=== PATIENT | female | born 1940 | race Hispanic/Latino ===

== ENCOUNTER 2018-01-26 16:15 | Inpatient (IN) | payer MEDICARE ==
[2018-01-26] MEDS ORDERED: Fentanyl 100 MCG/2 ML VIAL ONE (18:01)
[2018-01-26] MEDS ORDERED: Cyclobenzaprine 10 MG TAB PO PRN (19:08)
[2018-01-26] MEDS ORDERED: Dextrose 5% in Water 1,000 ML IV PRN (19:08)
[2018-01-26] MEDS ORDERED: Guaifenesin DM 100-10/5 ML UDCUP PO PRN (19:08)
[2018-01-26] MEDS ORDERED: Dextrose 50% Abboject 50 ML SYRINGE SLOW IVP PRN (19:08)
[2018-01-26] MEDS ORDERED: HumaLOG 300 UNITS/3 ML VIAL SC PRN ×2 (19:08)
[2018-01-26] MEDS ORDERED: Ondansetron HCl/PF 4 MG/2 ML Vial IVP PRN (19:08)
[2018-01-26] MEDS ORDERED: cefTRIAXone\\ROCEPHIN 1 GM in Sodium Chloride 0.9% 100 ML IVPB SCH (19:15)
[2018-01-26] MEDS ORDERED: VANCOMYCIN IVPB PRN (19:46)
[2018-01-26 20:54] VITALS: BMI 27.9
--- NOTE | 2018-01-26 20:56 | HP ---
REASON FOR ADMISSION: Acute kidney injury, history of fall with worsening of lumbar disk disease, possible diskitis, moderate dehydration, metabolic acidosis due to acute kidney injury. HISTORY OF PRESENT ILLNESS: The patient gives history of trying to open the door for her son around 12:00 p.m. She was initially in the restroom and tried to get up and walk quick towards the front door and the patient apparently fell soon after opening the door for her son. Her son tried to catch her, but she had already gone onto the floor, hitting her back. The son tried to make the fall as safe as he could. She has history of lumbar disk disease from last 22 years or so. In fact, this was getting worse and had gone to see Dr. Solis yesterday. She was placed on prednisone tapering dose starting at 40 mg oral course of 9 days which the patient took so far two tablets. No obvious fever, but has felt warm at home from last 2-3 days. No complaints of chest pain or palpitation. The patient says she does not have any diarrhea. She is not sure if she was hydrating herself well. She has no known history of kidney disease as far she knows. The patient states that she has been postponing her spine surgery from last 20 years or so. She wanted to get it done only if she gets to a point where she cannot move her limbs. PAST MEDICAL/SURGICAL HISTORY: Hypertension, diabetes mellitus type 2, C- section x1. No other surgeries. CURRENT MEDICATIONS: Prednisone taper started from yesterday evening for severe back pain. Metformin extended release 500 mg p.o. daily, cyclobenzaprine 10 mg p.o. 3 times daily p.r.n., hydrochlorothiazide 25 mg daily , lisinopril 10 mg daily, Ultram 50 mg q.6 hours p.r.n. ALLERGIES: PENICILLIN. PERSONAL HISTORY: She does not abuse alcohol or drugs. Quit smoking 20 years ago, prior to which has smoked half pack a day for nearly 20 years. She normally walks one mile a day which she has been doing so until the last weekend when her back pain started to bother her. She lives by herself. Does not use any assistive devices. FAMILY HISTORY: Both parents at the age of 78 years, both have had history of [place] and diabetes. REVIEW OF SYSTEMS: The following complete review of systems was negative, unless otherwise mentioned in the HPI or below: Constitutional: Weight loss or gain, ability to conduct usual activities. Skin: Rash, itching. Eyes: Double vision, pain. ENT/Mouth: Nose bleeding, neck stiffness, pain, tenderness. Cardiovascular: Palpitations, dyspnea on exertion, orthopnea. Respiratory: Shortness of breath, wheezing, cough, hemoptysis, fever or night sweats. Gastrointestinal: Poor appetite, abdominal pain, heartburn, nausea, vomiting, constipation, or diarrhea. Genitourinary: Urgency, frequency, dysuria, nocturia. Musculoskeletal: Pain, swelling. Neurologic/Psychiatric: Anxiety, depression. Allergy/Immunologic: Skin rash, bleeding tendency. CODE STATUS: FULL. Power of senior trial attorney is her son, Mr. Cardenas. PHYSICAL EXAMINATION: GENERAL: The patient is a 78-year-old female who is currently in mild to moderate pain from lower back area. VITAL SIGNS: Blood pressure 100/80, pulse 90 per minute, respiratory rate 20 per minute, temperature 98.8 degrees Fahrenheit, saturating 96% on room air. NECK: Supple, no elevated JVD. HEENT: Eyes, extraocular muscles intact. Pupils reacting to light. Oral cavity, mucous membranes are moist. No exudates or congestion. CARDIOVASCULAR: S1, S2 heard. Regular rhythm. RESPIRATORY: Air entry 2+ bilateral. No rales or rhonchi. ABDOMEN: Soft, bowel sounds heard. No tenderness, rigidity or guarding. EXTREMITIES: Mild peripheral edema, no calf tenderness. VASCULAR: Peripheral pulses 1+ bilateral, no ischemic ulcerations or gangrene. CENTRAL NERVOUS SYSTEM: No gross focal deficits seen. Patient has severe pain in the median and paraspinal area. No obvious or localized spot tenderness noted in the lower back. PSYCHIATRIC: The patient's mood is euthymic. No hallucinations or delusions. LABORATORY AND X-RAY FINDINGS: CT brain noncontrast done showed no acute intracranial abnormalities. There is moderate chronic small vessel ischemic changes seen, no acute cortical infarct or hemorrhage were seen. Mild cerebral volume loss was seen. Chest x-ray done shows no acute intrathoracic disease. EKG done shows sinus tachycardia at 103 beats per minute. There is Q-wave seen in V1 and V2. Corrected QT is 474. Sodium 140. Serum bicarbonate 19, BUN 61, creatinine 2.59. Serum glucose 194, albumin is 3.7, troponin I is less than 0.01, CK-MB 2.6. White count of 14, H&H 10 and 35, platelet count 331, MCV is 75 with 85% neutrophils, sed rate is 66. CLINICAL IMPRESSION AND PLAN: The patient will be admitted to medical floor for acute kidney injury, metabolic acidosis, worsening of her lumbar disk disease with a fall this afternoon. Also, patient has a white count of 14 and it is unclear if this is due to steroids, although she just took 1 pill. [place]ano cultures will be obtained and the patient will be placed on vancomycin and ceftriaxone based on renal dosing. MRI without contrast of the thoracic and lumbar spine will be obtained in the morning and to rule out diskitis/ osteomyelitis. We will also obtain consultation with Dr. Fuentes for Nephrology and Dr. Fields who is production machine tender for Neurosurgery. PT, OT evaluations will be requested. If patient cannot mobilize then she will be a candidate for inpatient rehab based on MRI findings. We will hold her hydrochlorothiazide, metformin, and lisinopril for now in view of acute kidney injury and place her on Norvasc, Lopressor for now. She will be on morphine, Ultram and Flexeril p.r.n. for pain. We will continue to closely monitor her for any hemodynamic compromise. I have given complete updates to both her son and niece at bedside here. MARY
[2018-01-26] MEDS ORDERED: cefTRIAXone\\ROCEPHIN 1 GM, Syringe 0.4 ML in Sterile Water 9.6 ML SLOW IVP SCH (21:00)
[2018-01-26] MEDS: Sodium Chloride 0.9% 1,000 ML IV SCH (21:18)
[2018-01-26] MEDS ORDERED: Vancomycin HCl 1.75 GM in Sodium Chloride 0.9% 500 ML IVPB SCH (22:00)
[2018-01-26] MEDS: Docusate 100 MG CAP PO SCH (22:26)
[2018-01-26] MEDS: Metoprolol Tartrate 25 MG TAB PO SCH (22:27)
[2018-01-26] MEDS: Famotidine 20 MG TAB PO SCH (22:28)
[2018-01-26] MEDS: traMADol HCl 50 MG TAB PO PRN (22:31)
[2018-01-27 04:24] LABS: #Basophils 0.1 thou/uL (0.0-0.2); #Eosinphils 0.2 thou/uL (0.0-0.7); #Lymphocytes 2.1 thou/uL (1.20-3.40); #Monocytes 0.9 thou/uL (0.11-0.59); #Neutrophils 6.9 thou/uL (1.40-6.50); %Basophils 0.5 % (0.0-1.0); %Lymphocytes 20.8 % (21.0-51.0); %Neutrophils 67.8 % (42.0-75.0); Hemoglobin 9.3 g/dL (12.0-16.0); Mean Corpuscular HGB CONC 32.3 g/dL (32.0-36.0); Mean Corpuscular Hemoglobin 24.5 pg (27.0-31.0); Mean Corpuscular Volume 75.8 fl (81.0-99.0); Mean Platelet Volume 8.3 fL (7.4-10.4); Platelet Count 257 thou/uL (130-400); RBC Distribution Width 16.3 % (11.5-14.5); Red Blood Cell (RBC) Count 3.79 mill/uL (4.20-5.40); White Blood Cell (WBC) Count 10.1 thou/uL (4.8-10.8)
[2018-01-27 04:35] LABS: Albumin 3.2 g/dL (3.4-4.8); Anion Gap 12 mmol/L (10-20); BUN (Urea Nitrogen) 51 mg/dL (9.8-20.1); BUN/Creatinine Ratio 26.98; Calc. Creatinine Clearance 30 mL/min (70-130); Calcium 8.2 mg/dL (7.8-10.44); Carbon Dioxide 19 mmol/L (23-31); Chloride 111 mmol/L (98-107); Estimated GFR-MDRD 26; Glucose 116 mg/dL (83-110); Phosphorus 4.5 mg/dL (2.3-4.7); Potassium 3.7 mmol/L (3.5-5.1); Sodium 138 mmol/L (136-145)
[2018-01-27] MEDS: traMADol HCl 50 MG TAB PO PRN ×2 (06:20→15:33)
[2018-01-27] MEDS: Sodium Chloride 0.9% 1,000 ML IV SCH ×2 (06:22→13:28)
[2018-01-27] MEDS ORDERED: Prevnar 13-Val Conj/PF 0.5 ML SYRINGE IM ONE (09:00)
[2018-01-27] MEDS: Docusate 100 MG CAP PO SCH ×2 (09:20→20:18)
[2018-01-27] MEDS: Metoprolol Tartrate 25 MG TAB PO SCH ×2 (09:21→20:18)
[2018-01-27] MEDS: Enoxaparin Sodium 30 MG/0.3 ML SYRINGE SC SCH (09:29)
[2018-01-27] MEDS: Amlodipine 5 MG TAB PO SCH (09:30)
--- NOTE | 2018-01-27 17:37 | MRI ---
THORACIC SPINE MRI WITHOUT CONTRAST: 01/27/18 HISTORY: Severe pain. Evaluate for discitis. COMPARISON: None. TECHNIQUE: Thoracic spine MRI is performed without intravenous gadolinium administration. Multisequential, multi planar imaging is performed. FINDINGS: Overall there is appropriate T1 marrow signal intensity of the thoracic vertebrae. There is mild to m oderate loss of vertebral body height at T9 without significant STIR hyperintensity. Remote compressi on fracture is favored. End plate change at the superior aspect of T7 due to Schmorl's node is favore d. There is no abnormal edema in the disc spaces throughout the thoracic spine. Visualized mediastinum, lung parenchyma and solid organs are unremarkable. Evaluation of the thoracic spine is limited on the axial images due to motion degradation. The thoracic cord has an overall nor mal size and signal intensity. No cord expansion. No cord malacia. Conus medullaris appears to termin ate at the L1 level. With regard to the inferior end plate of L1, there appears to be edematous guerrier e. Possibility of a compression fracture is raised. Evaluation is limited and reference should be mad e to the separate lumbar spine MRI for repeat for further detail. At the T9-T10 level, there is generalized disc bulge with possible osteophyte components. Based on th e axial images, there is likely at least mild central canal stenosis. There is mild deformity of the cord without obvious hyperintensity of the cord. Evaluation is limited on the axial images due to mot ion. Throughout the thoracic spine, no obvious high grade foraminal stenosis. IMPRESSION: 1. Remote changes involving the thoracic spine. No MR evidence of thoracic spine discitis/osteom yelitis. Evaluation is limited by lack of gadolinium administration. 2. Irregularity involving the inferior end plate of L1, incompletely evaluated. Refer to separat e lumbar spine MRI for further detail. 3. Degenerative change at T9-T10. POS: OFF
--- NOTE | 2018-01-27 17:41 | PDOC.PN ---
- Subjective Encounter Start Date: 01/27/18 Encounter Start Time: 17:39 Ms. Mcguire was seen today in follow-up of severe low back pain. She says the pain has flared up after she had the MRI performed. - Objective Resuscitation Status: Resuscitation Status FULL:Full Resuscitation MAR Reviewed: Yes Vital Signs & Weight: Vital Signs (12 hours) Temp Pulse Resp BP Pulse Ox 01/27/18 09:30 66 135/66 01/27/18 08:00 97.9 F 66 16 95 Weight Admit Weight 162 lb 12.8 oz Weight 162 lb 12.8 oz Result Diagrams: 01/27/18 04:04 01/27/18 04:04 Additional Labs: Accuchecks 01/27/18 01/27/18 01/27/18 16:31 11:30 05:11 POC Glucose 98 105 114 H 01/27/18 00:14 POC Glucose 116 H Phys Exam - Physical Examination HEENT: PERRLA Respiratory: no wheezing, no rales, no rhonchi, clear to auscultation bilateral Cardiovascular: RRR, no significant murmur Gastrointestinal: soft, non-tender, positive bowel sounds Musculoskeletal: no edema Dx/Plan (1) Fracture of L1 vertebra Code(s): S32.019A - UNSP FRACTURE OF FIRST LUMBAR VERTEBRA, INIT FOR CLOS FX Status: Acute (2) Diabetes mellitus type 2 in nonobese Code(s): E11.9 - TYPE 2 DIABETES MELLITUS WITHOUT COMPLICATIONS Status: Acute (3) Hypertension Code(s): I10 - ESSENTIAL (PRIMARY) HYPERTENSION Status: Acute (4) Microcytic anemia Code(s): D50.9 - IRON DEFICIENCY ANEMIA, UNSPECIFIED Status: Acute (5) Acute renal failure Status: Acute - Plan * Severe back pain- Preliminary MRI report is significant for L1 fracture , and DJD- will add Calcitonin, and awaait recommendations from Neurosurgery * HTN- blood pressure is controlled * Acute renal failure- improved * DM- blood glucose is stable * There was no mention of disciitis or epidural abscess on the MRI report which has not been transcribed yet- will continue IV antibiotics, until the report is final. * Anemia- microcytic-terry check iron studies, and Nephrology has ordered studies for para- proteins * Acute renal failure- improved
--- NOTE | 2018-01-27 17:43 | MRI ---
LUMBAR SPINE MRI WITHOUT IV CONTRAST: 01/27/18 HISTORY: 78-year-old female with history of fall and pain. Concern for discitis. Multiplanar and multisequence MRI examination of the lumbar spine is performed. At L1-L2, there is so me compression of the inferior end plate of L1 with some minimal abnormal marrow edema, evidence for acute subcortical fracture. The conus medullaris region is unremarkable terminating at L1-L2. Very small T2 hyperdense focus in t he left kidney too small to characterize was statistically a small cyst. No evidence for canal or for aminal stenosis. No evidence of retropulsion. L2-L3: The disc demonstrates some mild disc bulging with ligament and facet hypertrophic changes some what more focally prominent in the left paracentral aspect with very mild thinning of the lateral rec ess and mild foraminal stenosis. At L3-4, there is again noted to be mild bilateral lateral recess stenosis and some mild bilateral fo raminal stenosis. Evidence of multiple annular fissures. At L4-5, there is more severe disc bulging and ligament and facet hypertrophic changes with moderate central canal and lateral recess stenosis and moderate bilateral foraminal stenosis as well as some m ultiple annular fissures. At L5-S1, generalized disc bulging with some annular fissures with mild bilateral foraminal stenosis. IMPRESSION: Subcortical compression fracture of the inferior end plate region of L1 centrally with some adjacent marrow edema without evidence of retropulsion or canal stenosis. Variable severity multilevel mostly mild to moderate central canal, lateral recess, and foraminal stenosis with multilevel annular fissur es of the remainder of the lumbar spine. POS: EBONIE
[2018-01-27] MEDS: Famotidine 20 MG TAB PO SCH (20:18)
[2018-01-27] MEDS: Calcitonin,Salmon,Synthetic 200 Units 3.7 ML PUMP L NARE SCH (20:19)
[2018-01-27] MEDS: Morphine 4 MG/ML VIAL SLOW IVP PRN (20:21)
[2018-01-27] MEDS ORDERED: cefTRIAXone\\ROCEPHIN 1 GM, Syringe 0.4 ML in Sterile Water 9.6 ML SLOW IVP SCH (21:00)
[2018-01-27 22:53] LABS: Creatinine, Urine 44.39 mg/dL (47-110)
--- NOTE | 2018-01-27 23:15 | CON ---
DATE OF CONSULTATION: 01/27/2018 NEPHROLOGY CONSULT CONSULTING PHYSICIAN: Dr. Jonathan Kothari. REASON FOR CONSULTATION: Acute kidney injury. REASON FOR ADMISSION: Dehydration. HISTORY OF PRESENT ILLNESS: This is a 78-year-old female who was brought to the hospital for not fee ling well and difficulty walking and history of fall. Patient was found to have acute kidney injury with elevated creatinine of 2.5 from her baseline of 1.5. Nephrology is consulted. Patient was star aura on IV hydration this morning, it was better. No fever or chills. PAST MEDICAL HISTORY: Positive for hypertension, type 2 diabetes. PAST SURGICAL HISTORY: . HOME MEDICATIONS: Metformin, cyclobenzaprine, hydrochlorothiazide, lisinopril. ALLERGIES: PENICILLIN. SOCIAL HISTORY: No smoking, alcohol, or illicit drug abuse. FAMILY HISTORY: No history of kidney disease. REVIEW OF SYSTEMS: The following complete review of systems was negative, unless otherwise mentioned in the HPI or below: Constitutional: Weight loss or gain, ability to conduct usual activities. Sk in: Rash, itching. Eyes: Double vision, pain. ENT/Mouth: Nose bleeding, neck stiffness, pain, te nderness. Cardiovascular: Palpitations, dyspnea on exertion, orthopnea. Respiratory: Shortness of breath, wheezing, cough, hemoptysis, fever, or night sweats. Gastrointestinal: Poor appetite, abdo kathie pain, heartburn, nausea, vomiting, constipation, or diarrhea. Genitourinary: Urgency, frequen cy, dysuria, nocturia. Musculoskeletal: Pain, swelling. Neurologic/Psychiatric: Anxiety, depressi on. Allergy/Immunologic: Skin rash, bleeding tendency. PHYSICAL EXAMINATION: GENERAL: This is an obese female in no apparent distress. VITAL SIGNS: Temperature 98.0, pulse 63, respiratory rate 18, blood pressure 119/72. HEENT: Atraumatic, normocephalic. Oral mucosa is moist. NECK: Supple. HEART: S1, S2 heard. Rate and rhythm regular. RESPIRATORY: Clear. ABDOMEN: Soft. MUSCULOSKELETAL: No tenderness. No edema. DERMATOLOGIC: No skin rash. NEUROLOGIC: Alert, awake. PSYCH: Normal mood and affect. LABORATORY DATA: : Hemoglobin is 9.3. Potassium is 3.7, BUN is 51, creatinine is 1.8. ASSESSMENT AND PLAN: 1. Acute kidney injury. Creatinine is better from 1.8 from 2.5 on hydration. Continue hydration fo r 1 more day. Avoid nephrotoxins, renally dose all the medicines. 2. Anemia, rule out any bleed. 3. Hypertension, stable. 4. Acidosis, mild. 5. Hypoalbuminemia. We will check urine studies. Plan is to continue IV fluids and check chronic kidney disease labs.
--- NOTE | 2018-01-27 23:32 | CON ---
DATE OF CONSULTATION: 01/27/2018 Arcadio Moore PA-C dictating for Duc Reed MD This is a 30-minute initial patient evaluation, of which greater than 50% of the exam was spent couns eling and coordinating patient's care. Remainder of the exam was spent in review of patient's medica l records and appropriate imaging studies. CHIEF COMPLAINT: Increased low back pain, midline low back pain, status post fall. HISTORY OF PRESENT ILLNESS: Ms. Mcguire is a pleasant 78-year-old female, who presented to [facility] Emergency Room for complaints of a fall. Apparently, the patient was trying to open her front door for her son and became unsteady on her feet and fell backward. She states since that time she has h ad severe midline low back pain. She does have a history of intermittent low back pain since 1996, b ut states she has not really had a flareup since her fall on . The patient denies any radicu lar symptoms including no hip pain, buttock pain, or leg pain. She has no numbness or tingling in legs. She again does not typically fall, but has been unsteady on her feet over the past few days and has required the use of a cane for gait stability. She is not on any blood thinners and does not use tobacco. She has never had surgery on the lumbar spine. She also has not had physical therapy or epidural steroid injections. IMAGING: The patient's lumbar spine including review of her most recent MRI shows some [id number] evere stenosis of the L4-5 level. PHYSICAL EXAMINATION: The patient is awake, alert, and appropriate. She has full strength in the bi lateral upper and bilateral lower extremities with intact sensation to light touch throughout. She h as no worrisome myelopathic features on exam including negative Lovett's bilaterally and no increase d tone. She has no worrisome tenderness to palpation along the midline of the cervical spine, thorac ic, or lumbar spines or in the bilateral paraspinal musculature of the spine. GCS currently is 15. IMPRESSION: 1. Acute on chronic low back pain. 2. Lumbar spinal stenosis, L4-5. PLAN: I discussed the patient's case and imaging with Dr. Reed. At this time, the patient does no t require any type of neurosurgical intervention. We will maximize her conservative management inclu ding pain medications, epidural steroid injections, and perhaps injections, although given the fact t hat the patient does not have any radicular complaints, she may benefit more from, I suspect, injecti ons for pain management. Again, we will hold on any type of neurosurgical intervention. The patient 's family was updated with this information as well and they are certainly pleased that she can avoid surgery. Please call with any questions or changes in patient's neurologic status. Otherwise, we w ill continue to monitor the patient.
[2018-01-28] MEDS: Sodium Chloride 0.9% 1,000 ML IV SCH ×2 (01:43→16:47)
[2018-01-28 05:46] LABS: #Basophils 0.1 thou/uL (0.0-0.2); #Eosinphils 0.3 thou/uL (0.0-0.7); #Lymphocytes 1.7 thou/uL (1.20-3.40); #Monocytes 0.8 thou/uL (0.11-0.59); %Basophils 0.6 % (0.0-1.0); %Eosinophils 3.4 % (0.0-10.0); %Lymphocytes 19.6 % (21.0-51.0); %Monocytes 8.6 % (0.0-10.0); %Neutrophils 67.8 % (42.0-75.0); Hemoglobin 9.3 g/dL (12.0-16.0); Mean Corpuscular HGB CONC 31.2 g/dL (32.0-36.0); Mean Corpuscular Hemoglobin 23.8 pg (27.0-31.0); Mean Corpuscular Volume 76.3 fl (81.0-99.0); Mean Platelet Volume 9.8 fL (7.4-10.4); Platelet Count 236 thou/uL (130-400); RBC Distribution Width 16.3 % (11.5-14.5); Red Blood Cell (RBC) Count 3.92 mill/uL (4.20-5.40); White Blood Cell (WBC) Count 8.9 thou/uL (4.8-10.8)
[2018-01-28 05:59] LABS: Anion Gap 8 mmol/L (10-20); BUN (Urea Nitrogen) 40 mg/dL (9.8-20.1); Calc. Creatinine Clearance 37 mL/min (70-130); Calcium 8.6 mg/dL (7.8-10.44); Carbon Dioxide 20 mmol/L (23-31); Chloride 112 mmol/L (98-107); Estimated GFR-MDRD 34; Glucose 100 mg/dL (83-110); Iron 42 ug/dL (50-170); Iron Binding Capacity, Total 219 mcg/dL (265-497); Potassium 4.4 mmol/L (3.5-5.1); Sodium 136 mmol/L (136-145)
[2018-01-28 06:19] LABS: Ferritin 76.59 ng/mL (10-291); Vitamin D, 25 Hydroxy 7.1 ng/ml (> 30.0)
[2018-01-28] MEDS: Metoprolol Tartrate 25 MG TAB PO SCH ×2 (08:12→19:47)
[2018-01-28] MEDS: Docusate 100 MG CAP PO SCH ×2 (08:12→19:47)
[2018-01-28] MEDS: Enoxaparin Sodium 30 MG/0.3 ML SYRINGE SC SCH (08:14)
[2018-01-28] MEDS: Amlodipine 5 MG TAB PO SCH (08:16)
--- NOTE | 2018-01-28 13:11 | PRG ---
DATE OF SERVICE: 01/28/2018 This is a 30 minute initial hospital visit note in which 30 minutes were spent in review of the imagi ng, record, evaluation, examination of patient, and formulation of a plan. Greater than 50% of the t sapphire was spent in counseling. CHIEF COMPLAINT: Low back pain with likely new L1 fracture found on MRI with lumbar stenosis. HISTORY OF PRESENT ILLNESS: Ms. Mcguire is a very pleasant 78-year-old woman. She fell backwards an d was caught by her son. She had a low back pain. She has not had leg pain. MRI demonstrates some wedging at the L1 segment consistent with an anterior middle column fracture. She has some lumbar st enosis at L4-L5, but denies leg pain. PHYSICAL EXAMINATION: On our team's exam, she is neurologically intact. IMPRESSION AND PLAN: We will arrange for a TLSO clamshell brace from [facility]. This should be worn when she is out of bed with the likely duration 6-12 weeks. I will arrange follow up in my clinic in 2 weeks with upright AP and lateral lumbar spine x-rays. DIAGNOSES: 1. L1 fracture. 2. Lumbar stenosis.
[2018-01-28] MEDS: Morphine 4 MG/ML VIAL SLOW IVP PRN ×2 (14:32→19:47)
--- NOTE | 2018-01-28 17:50 | PDOC.PN ---
- Subjective Encounter Start Date: 01/28/18 Encounter Start Time: 17:48 Ms. Mcguire is feeling better. She still has some pain, but it is controlled with medication. - Objective Resuscitation Status: Resuscitation Status FULL:Full Resuscitation MAR Reviewed: Yes Vital Signs & Weight: Vital Signs (12 hours) Temp Pulse Resp BP BP Pulse Ox 01/28/18 08:16 64 185/78 H 01/28/18 08:00 98.1 F 64 18 185/78 H 98 Weight Admit Weight 162 lb 12.8 oz Weight 162 lb 12.8 oz Result Diagrams: 01/28/18 05:03 01/28/18 05:03 Additional Labs: Accuchecks 01/28/18 01/28/18 01/28/18 17:09 11:41 05:40 POC Glucose 117 H 122 H 97 01/27/18 21:11 POC Glucose 110 Phys Exam - Physical Examination HEENT: PERRLA Respiratory: no wheezing, no rales, no rhonchi, clear to auscultation bilateral Cardiovascular: RRR, no significant murmur, no rub Gastrointestinal: soft, non-tender, no distention, positive bowel sounds Musculoskeletal: no edema Dx/Plan (1) Fracture of L1 vertebra Code(s): S32.019A - UNSP FRACTURE OF FIRST LUMBAR VERTEBRA, INIT FOR CLOS FX Status: Acute (2) Diabetes mellitus type 2 in nonobese Code(s): E11.9 - TYPE 2 DIABETES MELLITUS WITHOUT COMPLICATIONS Status: Acute (3) Hypertension Code(s): I10 - ESSENTIAL (PRIMARY) HYPERTENSION Status: Acute (4) Microcytic anemia Code(s): D50.9 - IRON DEFICIENCY ANEMIA, UNSPECIFIED Status: Acute (5) Acute renal failure Status: Acute - Plan * L1 Compression fracture- She will not need surgery- and a TSLO brace has been ordered, and she has been shown how to use it * Continue Pain control, and PT/OT * Anemia- is consistent with iron deficiency- discussed with the patient and her son- she will need outpatient colonoscopy once her lumbar fracture has healed to rule out occult malignancy * Low Vitamin D level- will need to replace * Acute renal failure- improved- I suspect she is close to her baseline function - will discontinue IV fluids * DM- blood glucose is controlled * HTN- blood pressure is elevated- Lisinopril,and HCTZ are on hold due to renal failure- will add hydralazine as needed, and then consider re-starting them in a day or so * Rehab screen is in progress.
[2018-01-28] MEDS: Famotidine 20 MG TAB PO SCH (19:46)
--- NOTE | 2018-01-28 19:47 | PRG ---
DATE OF SERVICE: 01/28/2018 NEPHROLOGY PROGRESS NOTE SUBJECTIVE: Patient was seen and examined at bedside and overnight events noted. Patient denies any shortness of breath or chest pain or palpitation. No history of nausea or vomiting or diarrhea or f ever or chills or cramps. OBJECTIVE: GENERAL: This is a well-built female in no apparent distress. VITAL SIGNS: Temperature 98.1, pulse 64, respiratory rate 18, blood pressure 95/78. HEENT: Atraumatic, normocephalic. Oral mucosa is moist. NECK: Supple. CARDIOVASCULAR: S1, S2 heard. Rate and rhythm regular. RESPIRATORY: Clear to auscultation. GASTROINTESTINAL: Abdomen is soft. MUSCULOSKELETAL: No tenderness. No edema. DERMATOLOGIC: No skin rash. NEUROLOGIC: Alert and awake and oriented x3. No focal neurologic deficits. Moving all the extremiti es. PSYCHIATRIC: Mood and affect normal. LABORATORY DATA: Potassium is 4.4, BUN is 40, creatinine 1.5. ASSESSMENT AND PLAN: 1. Acute kidney injury. Creatinine is better to 1.5. Agree with hydration. 2. Anemia. 3. Hypertension. 4. Acidosis, stable. 5. Hypoalbuminemia. Overall, renal function is stable. We will monitor renal function closely. Avoid nephrotoxins.
[2018-01-28] MEDS ORDERED: Vancomycin HCl 750 MG in Sodium Chloride 0.9% 250 ML 250 ML IVPB SCH (21:00)
[2018-01-28] MEDS: Calcitonin,Salmon,Synthetic 200 Units 3.7 ML PUMP R NARE SCH (21:14)
[2018-01-29] MEDS: Morphine 4 MG/ML VIAL SLOW IVP PRN ×2 (00:08→05:14)
[2018-01-29 04:45] LABS: Anion Gap 9 mmol/L (10-20); BUN (Urea Nitrogen) 32 mg/dL (9.8-20.1); Calc. Creatinine Clearance 45 mL/min (70-130); Carbon Dioxide 22 mmol/L (23-31); Chloride 115 mmol/L (98-107); Estimated GFR-MDRD 42; Glucose 110 mg/dL (83-110); Potassium 3.8 mmol/L (3.5-5.1); Sodium 142 mmol/L (136-145)
[2018-01-29] MEDS: Metoprolol Tartrate 25 MG TAB PO SCH ×2 (08:21→20:23)
[2018-01-29] MEDS: Amlodipine 5 MG TAB PO SCH (08:21)
[2018-01-29] MEDS: Docusate 100 MG CAP PO SCH ×2 (08:21→20:22)
[2018-01-29] MEDS: Enoxaparin Sodium 30 MG/0.3 ML SYRINGE SC SCH (08:21)
[2018-01-29] MEDS: Acetaminophen 325 MG TAB PO PRN ×4 (08:24→21:40)
--- NOTE | 2018-01-29 13:28 | PRG ---
DATE OF SERVICE: 01/29/2018 NEPHROLOGY PROGRESS NOTE SUBJECTIVE: Patient was seen and examined at bedside and overnight events noted. Patient denies any shortness of breath or chest pain or palpitation. No history of nausea or vomiting or diarrhea or f ever or chills or cramps. OBJECTIVE: GENERAL: This is a well-built female in no apparent distress. VITAL SIGNS: Temperature 97.0, pulse 72, respiratory rate 20, blood pressure 142/77. HEENT: Atraumatic, normocephalic. Oral mucosa is moist. NECK: Supple. CARDIOVASCULAR: S1, S2 heard. Rate and rhythm regular. RESPIRATORY: Clear to auscultation. GASTROINTESTINAL: Abdomen is soft. MUSCULOSKELETAL: No tenderness. No edema. DERMATOLOGIC: No skin rash. NEUROLOGIC: Alert and awake and oriented x3. No focal neurologic deficits. Moving all the extremiti es. PSYCHIATRIC: Mood and affect normal. LABORATORY DATA: Potassium is 3.8, BUN 32, creatinine is 1.2. ASSESSMENT AND PLAN: 1. Acute kidney injury on chronic kidney disease stage 3. Renal function is improving. Creatinine is 1.2 today. 2. Anemia. Monitor hemoglobin. 3. Hypertension. Titrate medicines. 4. Acidosis, stable. 5. Hypoalbuminemia. 6. Continue oral hydration. Avoid nephrotoxins.
--- NOTE | 2018-01-29 17:09 | PDOC.PN ---
- Subjective Encounter Start Date: 01/29/18 Encounter Start Time: 17:02 Ms. Mcguire was seen today in follow-up of L1 fracture. She says the pain is better today.She has not required Morphine since early this morning. - Objective Resuscitation Status: Resuscitation Status FULL:Full Resuscitation MAR Reviewed: Yes Vital Signs & Weight: Vital Signs (12 hours) Temp Pulse Resp BP BP Pulse Ox 01/29/18 13:40 65 147/65 H 01/29/18 08:00 98.1 F 72 16 95 01/29/18 07:44 98.1 F 72 16 202/80 H 95 Weight Admit Weight 162 lb 12.8 oz Weight 162 lb 12.8 oz I&O: 01/28/18 01/29/18 01/30/18 06:59 06:59 06:59 Intake Total 1822 Balance 1822 Result Diagrams: 01/28/18 05:03 01/29/18 04:01 Additional Labs: Accuchecks 01/29/18 01/29/18 01/28/18 16:19 10:56 20:22 POC Glucose 106 155 H 140 H 01/28/18 17:09 POC Glucose 117 H Phys Exam - Physical Examination HEENT: PERRLA Respiratory: no wheezing, no rales, no rhonchi, clear to auscultation bilateral Cardiovascular: RRR, no significant murmur, no rub Gastrointestinal: soft, non-tender, positive bowel sounds Musculoskeletal: no edema Dx/Plan (1) Fracture of L1 vertebra Code(s): S32.019A - UNSP FRACTURE OF FIRST LUMBAR VERTEBRA, INIT FOR CLOS FX Status: Acute (2) Diabetes mellitus type 2 in nonobese Code(s): E11.9 - TYPE 2 DIABETES MELLITUS WITHOUT COMPLICATIONS Status: Acute (3) Hypertension Code(s): I10 - ESSENTIAL (PRIMARY) HYPERTENSION Status: Acute (4) Microcytic anemia Code(s): D50.9 - IRON DEFICIENCY ANEMIA, UNSPECIFIED Status: Acute (5) Acute renal failure Status: Acute - Plan * Acute L1 fracture- she is clinically improving * HTN- blood pressure is elevated- Lisinopril is on hold due to resolving acute renal failure- will continue Hydralazine as needed, and can possibly re-start Lisinopril in a few days, depending on Nephrology recommendations * DM- blood glucose is stable * Iron deficiency anemia- will start iron daily * Vitamin D deficiency- will start Disdol * Continue PT/OT, and await Rehab authorization
[2018-01-29] MEDS: Famotidine 20 MG TAB PO SCH (20:22)
[2018-01-29] MEDS: Calcitonin,Salmon,Synthetic 200 Units 3.7 ML PUMP L NARE SCH (20:22)
[2018-01-29] MEDS: hydrALAZINE 25 MG TAB PO PRN (21:40)
[2018-01-30] MEDS ORDERED: cloNIDine 0.1 MG TAB PO SCH (00:45)
[2018-01-30] MEDS: Acetaminophen 325 MG TAB PO PRN ×4 (07:35→20:40)
[2018-01-30] MEDS: Metoprolol Tartrate 25 MG TAB PO SCH ×2 (07:37→20:40)
[2018-01-30] MEDS: Docusate 100 MG CAP PO SCH ×2 (07:37→20:40)
[2018-01-30] MEDS: Ferrous Sulfate 325 MG TAB PO SCH (07:37)
[2018-01-30] MEDS: Amlodipine 5 MG TAB PO SCH ×2 (07:46→20:40)
[2018-01-30] MEDS: Enoxaparin Sodium 30 MG/0.3 ML SYRINGE SC SCH (07:47)
[2018-01-30] MEDS: hydrALAZINE 25 MG TAB PO PRN ×2 (11:39→18:21)
--- NOTE | 2018-01-30 15:01 | PDOC.PN ---
- Subjective Encounter Start Date: 01/30/18 Encounter Start Time: 14:56 Ms. Mcguire was seen today in follow-up. She says she had some pretty severe back pain this morning. Otherwise ok - Objective Resuscitation Status: Resuscitation Status FULL:Full Resuscitation MAR Reviewed: Yes Vital Signs & Weight: Vital Signs (12 hours) Temp Pulse Resp BP BP BP Pulse Ox 01/30/18 13:27 160/68 H 01/30/18 12:17 97.7 F 66 20 97 01/30/18 11:39 61 180/80 H 01/30/18 07:54 98.1 F 61 20 170/75 H 96 01/30/18 07:51 98.1 F 63 20 01/30/18 07:46 57 L 170/75 H Weight Admit Weight 162 lb 12.8 oz Weight 162 lb 12.8 oz I&O: 01/29/18 01/30/18 01/31/18 06:59 06:59 06:59 Intake Total 1822 300 Balance 1822 300 Result Diagrams: 01/28/18 05:03 01/29/18 04:01 Additional Labs: Accuchecks 01/30/18 01/30/18 01/29/18 11:30 05:30 20:44 POC Glucose 98 120 H 136 H 01/29/18 01/29/18 16:19 04:46 POC Glucose 106 108 Phys Exam - Physical Examination HEENT: PERRLA Respiratory: no wheezing, no rales, no rhonchi, clear to auscultation bilateral Cardiovascular: RRR, no significant murmur, no rub Gastrointestinal: soft, non-tender, no distention, positive bowel sounds Musculoskeletal: no edema Dx/Plan (1) Fracture of L1 vertebra Code(s): S32.019A - UNSP FRACTURE OF FIRST LUMBAR VERTEBRA, INIT FOR CLOS FX Status: Acute (2) Diabetes mellitus type 2 in nonobese Code(s): E11.9 - TYPE 2 DIABETES MELLITUS WITHOUT COMPLICATIONS Status: Acute (3) Hypertension Code(s): I10 - ESSENTIAL (PRIMARY) HYPERTENSION Status: Acute (4) Microcytic anemia Code(s): D50.9 - IRON DEFICIENCY ANEMIA, UNSPECIFIED Status: Acute (5) Acute renal failure Status: Acute - Plan * Acute L1 fracture- continue PT/OT and pain control * HTN- blood pressure is still elevated- will increase Amlodipine to twice a day * DM- blood glucose has been stable- will check her renal function in the AM, and if improved, consider re-starting Metformin * Vitamin D deficiency- continue supplementation * Iron deficiency anemia- continue iron, and will need outpatient evaluation of GI tract .
--- NOTE | 2018-01-30 16:25 | PRG ---
DATE OF SERVICE: 01/30/2018 SUBJECTIVE: Patient was seen and examined at bedside and overnight events noted. Patient denies any shortness of breath or chest pain or palpitation. No history of nausea or vomitin g or diarrhea or fever or chills or cramps. OBJECTIVE: GENERAL: This is a well-built female, in no apparent distress. VITAL SIGNS: Temperature 98.1, pulse 61, respiratory rate 20, blood pressure 170/75. HEENT: Atraumatic, normocephalic. Oral mucosa is moist NECK: Supple. CARDIOVASCULAR: S1 and S2 heard. Rate and rhythm regular. RESPIRATORY: Clear to auscultation. GASTROINTESTINAL: Abdomen is soft. MUSCULOSKELETAL: No tenderness. No edema. DERMATOLOGIC: No skin rash. NEUROLOGIC: Alert and awake and oriented x3. No focal neurologic deficits. Moving all the extremit ies. PSYCHIATRIC: Mood and affect normal. LABORATORY DATA: Not done today. ASSESSMENT AND PLAN: 1. Acute kidney injury on chronic kidney disease. Renal function was getting better. 2. Anemia. 3. Hypertension. 4. Acidosis. 5. Hypoalbuminemia. 6. Overall renal function was getting better. 7. Secondary hyperparathyroidism with vitamin D deficiency. Recommend vitamin D. Plan is to repeat labs in the morning. We will follow.
[2018-01-30] MEDS: Famotidine 20 MG TAB PO SCH (20:39)
[2018-01-30] MEDS: Calcitonin,Salmon,Synthetic 200 Units 3.7 ML PUMP R NARE SCH (20:40)
[2018-01-30] MEDS: Morphine 4 MG/ML VIAL SLOW IVP PRN (23:17)
[2018-01-31] MEDS: hydrALAZINE 25 MG TAB PO PRN ×2 (00:35→15:45)
[2018-01-31] MEDS: Acetaminophen 325 MG TAB PO PRN ×3 (05:42→20:37)
[2018-01-31 05:59] LABS: Anion Gap 11 mmol/L (10-20); BUN (Urea Nitrogen) 21 mg/dL (9.8-20.1); Calc. Creatinine Clearance 56 mL/min (70-130); Carbon Dioxide 23 mmol/L (23-31); Chloride 112 mmol/L (98-107); Estimated GFR-MDRD 55; Glucose 115 mg/dL (83-110); Potassium 3.7 mmol/L (3.5-5.1); Sodium 142 mmol/L (136-145)
[2018-01-31] MEDS: Metoprolol Tartrate 25 MG TAB PO SCH ×2 (08:25→20:37)
[2018-01-31] MEDS: Docusate 100 MG CAP PO SCH ×2 (08:25→20:37)
[2018-01-31] MEDS: Ferrous Sulfate 325 MG TAB PO SCH (08:25)
[2018-01-31] MEDS: Amlodipine 5 MG TAB PO SCH ×2 (08:25→20:37)
[2018-01-31] MEDS: Enoxaparin Sodium 30 MG/0.3 ML SYRINGE SC SCH (08:26)
[2018-01-31] MEDS: Morphine 4 MG/ML VIAL SLOW IVP PRN (09:44)
--- NOTE | 2018-01-31 13:08 | PRG ---
DATE OF SERVICE: 01/31/2018 NEPHROLOGY PROGRESS NOTE SUBJECTIVE: Patient was seen and examined at bedside and overnight events noted. Patient denies any shortness of breath or chest pain or palpitation. No history of nausea or vomiting or diarrhea or f ever or chills or cramps. OBJECTIVE: GENERAL: This is a well-built female in no apparent distress. VITAL SIGNS: Temperature 97.9, pulse 70, respiratory rate 18, blood pressure 160/70. HEENT: Atraumatic, normocephalic. Oral mucosa is moist. NECK: Supple. CARDIOVASCULAR: S1, S2 heard. Rate and rhythm regular. RESPIRATORY: Clear to auscultation. GASTROINTESTINAL: Abdomen is soft. MUSCULOSKELETAL: No tenderness. No edema. DERMATOLOGIC: No skin rash. NEUROLOGIC: Alert and awake and oriented x3. No focal neurologic deficits. Moving all the extremiti es. PSYCHIATRIC: Mood and affect normal. LABORATORY DATA: Potassium 3.7, BUN 21, creatinine 0.9. ASSESSMENT AND PLAN: 1. Acute kidney injury, chronic kidney disease stage 3, renal function is better. 2. Anemia. 3. Hypertension. 4. Acidosis. 5. Hypoalbuminemia. 6. Overall, renal function is stable. Continue vitamin D supplementation and follow up in the clini c in 1-2 weeks. Family is aware.
--- NOTE | 2018-01-31 14:42 | PDOC.PN ---
- Subjective Encounter Start Date: 01/31/18 Encounter Start Time: 14:38 Ms. Mcguire was seen today in follow-up. She does not have any complaints, except for some pain in her back. It has improved some. - Objective Resuscitation Status: Resuscitation Status FULL:Full Resuscitation MAR Reviewed: Yes Vital Signs & Weight: Vital Signs (12 hours) Temp Pulse Resp BP BP BP BP 01/31/18 12:00 170/75 H 01/31/18 08:29 160/70 H 01/31/18 08:25 71 160/70 H 01/31/18 07:47 97.9 F 71 18 01/31/18 05:43 170/62 H 01/31/18 05:15 97.9 F 71 18 Pulse Ox 01/31/18 12:00 01/31/18 08:29 01/31/18 08:25 01/31/18 07:47 01/31/18 05:43 01/31/18 05:15 96 Weight Admit Weight 162 lb 12.8 oz Weight 162 lb 12.8 oz I&O: 01/30/18 01/31/18 02/01/18 06:59 06:59 06:59 Intake Total 300 720 Balance 300 720 Result Diagrams: 01/28/18 05:03 01/31/18 04:27 Additional Labs: Accuchecks 01/31/18 01/31/18 01/30/18 11:36 05:19 21:13 POC Glucose 99 124 H 89 01/30/18 16:16 POC Glucose 97 Phys Exam - Physical Examination HEENT: PERRLA Respiratory: no wheezing, no rales, no rhonchi, clear to auscultation bilateral Cardiovascular: RRR, no significant murmur, no rub Gastrointestinal: soft, non-tender, positive bowel sounds Musculoskeletal: no edema Dx/Plan (1) Fracture of L1 vertebra Code(s): S32.019A - UNSP FRACTURE OF FIRST LUMBAR VERTEBRA, INIT FOR CLOS FX Status: Acute (2) Diabetes mellitus type 2 in nonobese Code(s): E11.9 - TYPE 2 DIABETES MELLITUS WITHOUT COMPLICATIONS Status: Acute (3) Hypertension Code(s): I10 - ESSENTIAL (PRIMARY) HYPERTENSION Status: Acute (4) Microcytic anemia Code(s): D50.9 - IRON DEFICIENCY ANEMIA, UNSPECIFIED Status: Acute (5) Acute renal failure Status: Acute - Plan * L1 vertebral fracture- continue pain control, and PT/OT * HTN- blood pressure is elevated, but trending down * DM- blood glucose is stable * Acute renal failure- resolved * Re-assess need for discharge in the AM.
[2018-01-31] MEDS: Famotidine 20 MG TAB PO SCH (20:37)
[2018-01-31] MEDS: Calcitonin,Salmon,Synthetic 200 Units 3.7 ML PUMP L NARE SCH (20:37)
[2018-02-01] MEDS: Acetaminophen 325 MG TAB PO PRN ×3 (02:37→13:14)
[2018-02-01] MEDS: hydrALAZINE 25 MG TAB PO PRN (06:36)
[2018-02-01] MEDS: Ferrous Sulfate 325 MG TAB PO SCH (09:00)
[2018-02-01] MEDS ORDERED: Enoxaparin Sodium 40 MG/0.4 ML SYRINGE SC SCH (09:00)
[2018-02-01] MEDS: Docusate 100 MG CAP PO SCH (09:17)
[2018-02-01] MEDS: Metoprolol Tartrate 25 MG TAB PO SCH (09:17)
[2018-02-01] MEDS: Amlodipine 5 MG TAB PO SCH (09:18)
[2018-02-01 11:18] VITALS: TEMP 97.9
[2018-02-01 11:26] VITALS: BP 162/80
--- NOTE | 2018-02-01 11:44 | PRG ---
DATE OF SERVICE: 02/01/2018 SUBJECTIVE: This is a 78-year-old female being seen for kidney disease. The patient denies any naus ea, vomiting, or chest pain. PHYSICAL EXAMINATION: GENERAL: Patient is awake, alert. VITAL SIGNS: Afebrile, pulse 75, breathing 16, blood pressure is 126/74. OBJECTIVE: See above. Awake, alert, in no acute distress. GENERAL APPEARANCE AND MENTAL STATUS: Fair. HEAD/NECK: Normocephalic. Atraumatic. EYES: EOMI. No deformity. EARS: Clear. No ulcers. NOSE: Intact. No lesions. MOUTH: Clear. No discharge. THROAT: Clear. No exudate. LUNGS: Clear. No crackles. CARDIAC: S1, S2. No rub. ABDOMEN: Benign. BS+. GENITALIA/RECTUM: [place] absent. BACK/EXTREMITIES: Edema 0+ Ulcer- NEUROLOGICAL: Alert and motor intact. SKIN: Rash- Bruise- LYMPHATICS: Edema- Ulcer- LABORATORY: Hemoglobin 9.3, creatinine 0.99. ASSESSMENT AND RECOMMENDATIONS: 1. Acute kidney injury, improved. 2. Hypertension. Would recommend titrating the medication. 3. Anemia, stable. 4. Medication based on glomerular filtration rate are appropriate. No indication for dialysis. I will sign off on this patient. Please reconsult as needed.
--- NOTE | 2018-02-01 12:08 | PDOC.PN ---
- Subjective Encounter Start Date: 02/01/18 Encounter Start Time: 12:06 Ms. Mcguire was seen today in follow-up. She says she feels much better. The pain in her back is controlled with Tylenol. She ambulated well. - Objective Resuscitation Status: Resuscitation Status FULL:Full Resuscitation MAR Reviewed: Yes Vital Signs & Weight: Vital Signs (12 hours) Temp Pulse Resp BP BP Pulse Ox 02/01/18 11:17 97.9 F 60 16 162/80 H 97 02/01/18 09:18 74 140/80 02/01/18 07:06 97.8 F 69 18 02/01/18 06:36 69 176/74 H 02/01/18 04:00 97.8 F 69 20 93 L Weight Admit Weight 162 lb 12.8 oz Weight 162 lb 12.8 oz I&O: 01/31/18 02/01/18 02/02/18 06:59 06:59 06:59 Intake Total 720 1440 Balance 720 1440 Result Diagrams: 01/28/18 05:03 01/31/18 04:27 Additional Labs: Accuchecks 02/01/18 02/01/18 01/31/18 11:24 05:28 20:43 POC Glucose 114 H 136 H 117 H 01/31/18 15:51 POC Glucose 131 H Phys Exam - Physical Examination HEENT: PERRLA Respiratory: no wheezing, no rales, no rhonchi, clear to auscultation bilateral Cardiovascular: RRR, no significant murmur, no rub Gastrointestinal: soft, non-tender, no distention, positive bowel sounds Musculoskeletal: no edema Dx/Plan (1) Fracture of L1 vertebra Code(s): S32.019A - UNSP FRACTURE OF FIRST LUMBAR VERTEBRA, INIT FOR CLOS FX Status: Acute (2) Diabetes mellitus type 2 in nonobese Code(s): E11.9 - TYPE 2 DIABETES MELLITUS WITHOUT COMPLICATIONS Status: Acute (3) Hypertension Code(s): I10 - ESSENTIAL (PRIMARY) HYPERTENSION Status: Acute (4) Microcytic anemia Code(s): D50.9 - IRON DEFICIENCY ANEMIA, UNSPECIFIED Status: Acute (5) Acute renal failure Status: Acute - Plan * L1 vertebral fracture improved * HTN- blood pressure is trending down * She is stable for discharge home.
--- NOTE | 2018-02-01 12:48 | DIS ---
DATE OF ADMISSION: 01/26/2018 DATE OF DISCHARGE: 02/01/2018 PRIMARY CARE PHYSICIAN: Zachary Solis M.D. DISCHARGE DISPOSITION: Home. PRIMARY DISCHARGE DIAGNOSES: 1. L1 nontraumatic vertebral fracture. 2. Acute renal failure secondary to volume depletion. 3. Diabetes mellitus, type 2. 4. Hypertension. 5. Vitamin D deficiency. 6. Iron deficiency anemia. 7. Hypertension. DISCHARGE MEDICATIONS: Include amlodipine was increased to 5 mg twice a day, metoprolol 25 mg twice daily, lisinopril and hydrochlorothiazide had been discontinued temporarily due to acute renal failur e. Continue metformin 500 mg daily, iron sulfate 325 mg daily, Drisdol 1.25 mg every 7 days, Flexeri l 10 mg t.i.d. as needed, calcitonin 1 spray in each naris in alternating days and Tylenol 650 mg q.4 as needed for pain. PROCEDURES DONE DURING ADMISSION: The patient had an MRI of the thoracic and lumbar spine and it rev ealed a L1 compression fracture and multilevel DJD. CODE STATUS: FULL CODE. ALLERGIES: To PENICILLINS. HOSPITAL COURSE: Ms. Mcguire is a very pleasant 78-year-old female who presented to the emergency ro om after experiencing severe pain after falling and actually the pain started prior to her fall. It was discovered that she had an L1 compression fracture. It is suspected that this could be due to os teoporosis and she is recommended to get a bone density test after she has healed from the fracture. Her vitamin D levels were very low. She was also found to have acute renal failure, likely as a res ult of volume depletion. She was admitted with a creatinine of 1.89 and at the time of discharge her creatinine was 0.99. Lisinopril and hydrochlorothiazide were held as a result of this. These may b e restarted at the discretion of Dr. Solis in the outpatient setting. I also counseled her on the need for an evaluation for iron deficiency anemia. She says she has never had a colonoscopy and is r ecommended that she have this done as well.
[2018-02-05] MEDS ORDERED: Ergocalciferol 1.25 MG(50,000 UNITS) CAP PO SCH ×2 (09:00)
== END 2018-02-01 19:20 | disposition home or self-care (01) | DRG 543 ==
LOC: ERS 16:15 → T4-B 18:37
PROVIDERS: ADMIT Internal Medicine; ATTEND Internal Medicine
DX: M84.48XA Pathological fracture, other site, initial encounter for fracture (principal); N17.9 Acute kidney failure, unspecified; E87.2 Acidosis; E11.22 Type 2 diabetes mellitus with diabetic chronic kidney disease; N25.81 Secondary hyperparathyroidism of renal origin; M48.061 Spinal stenosis, lumbar region without neurogenic claudication; D50.9 Iron deficiency anemia, unspecified; M51.9 Unspecified thoracic, thoracolumbar and lumbosacral intervertebral disc disorder; E88.09 Other disorders of plasma-protein metabolism, not elsewhere classified; I12.9 Hypertensive chronic kidney disease with stage 1 through stage 4 chronic kidney disease, or unspecified chronic kidney disease; N18.3 Chronic kidney disease, stage 3 (moderate); E55.9 Vitamin D deficiency, unspecified; E86.0 Dehydration; Z79.84 Long term (current) use of oral hypoglycemic drugs; Z88.0 Allergy status to penicillin; W18.30XA Fall on same level, unspecified, initial encounter; Y92.009 Unspecified place in unspecified non-institutional (private) residence as the place of occurrence of the external cause
CPT/HCPCS: 36415; 36416; 72146; 72148; 80048; 80069; 82306; 82570; 82728; 83540; 83550; 83970; 84156; 85025; 85652; 86140; 87040; 87086; 90471; 90670; 93005; 96374; 96376; A4216; G0009; G8978-GP-CM; G8979-GP-CK; G8987-GO-CJ; G8988-GO-CI; J0696; J1650; J2270; J3010; J3370; J7050; L0190

== ENCOUNTER 2018-02-12 09:10 | Outpatient (CLI) | payer MEDICARE ==
--- NOTE | 2018-02-12 10:07 | RAD ---
TWO VIEWS OF THE LUMBAR SPINE: DATE: 02/12/18. COMPARISON: None. HISTORY: Wedge compression fracture of lumbar spine. FINDINGS: There is a fracture of the L1 vertebral body. The fracture primarily involves the inferior end plate and there is anterior wedging which is estimated at 35% loss of vertebral body height anteriorly. There is anterolisthesis at L4-5 measuring approximately 5 mm and at L5-S1 measuring approximately 7 mm. There is atherosclerotic calcification of the abdominal aorta. There is multilevel degenerative change noted within the facet joints of the lower lumbar spine. The re is multilevel disk space narrowing. IMPRESSION: L1 anterior wedge compression fracture as detailed above. POS: [facility]
== END 2018-02-12 09:11 | disposition home or self-care (01) ==
LOC: TBSIIMAG 09:10
PROVIDERS: ATTEND Surgery
DX: S32.000A Wedge compression fracture of unspecified lumbar vertebra, initial encounter for closed fracture (principal); S32.010A Wedge compression fracture of first lumbar vertebra, initial encounter for closed fracture
CPT/HCPCS: 72100

== ENCOUNTER 2018-03-12 09:47 | Outpatient (CLI) | payer MEDICARE ==
--- NOTE | 2018-03-12 11:25 | RAD ---
TWO VIEWS LUMBAR SPINE: HISTORY: Patient with a history of fracture imaged with brace. FINDINGS: AP and lateral views of the lumbar spine were obtained. Images demonstrate a compression fracture involving the inferior end plate of L1 unchanged since the previous exam. The overall height of the L1 vertebral body has not changed since the previous exam f rom 02/12/18. Some disk space height loss is seen at L4-5 and L5-S1. No other significant interval change is noted. IMPRESSION: Stable inferior aspect L1 compression fracture. POS: [facility]
== END 2018-03-12 09:48 | disposition home or self-care (01) ==
LOC: TBSIIMAG 09:47
PROVIDERS: ATTEND Surgery
DX: S32.019D Unspecified fracture of first lumbar vertebra, subsequent encounter for fracture with routine healing (principal); M48.061 Spinal stenosis, lumbar region without neurogenic claudication
CPT/HCPCS: 72100

== ENCOUNTER 2018-04-16 01:05 | Inpatient (IN) | payer MEDICARE ==
[2018-04-16] MEDS ORDERED: Nitroglycerin 2% Ointment 1 INCH/1 GM Packet ONE ×2 (01:22→01:23)
[2018-04-16] MEDS ORDERED: Furosemide 40 MG/4 ML VIAL ONE (01:22)
[2018-04-16] MEDS ORDERED: Nitroglycerin 0.4 MG TAB (25 Tab Bottle) ONE (01:22)
[2018-04-16] MEDS ORDERED: Ondansetron ODT 4 MG TAB ONE (02:51)
[2018-04-16 03:03] LABS: Troponin I 0.012 ng/mL (< 0.028)
--- NOTE | 2018-04-16 03:58 | PDOC.FPRHP ---
- History of Present Illness Chief Complaint: SOB History of Present Illness: Ms Mcguire is a 78yo female with a pmh of DMII and HTN presents to the ED with constant SOB that started one week ago on . SOB worsened on Thursday, she scheduled a clinic appt with Dr Solis. At the time she was afebrile and patient was told her "lungs sounded bad." He ordered a CXR and ultimately sent her home with a dose of prednisone and an albuterol inhaler. 04/15 he left her a voicemail (patient played in room) saying he did not think it was pneumonia but would like to pursue further testing. Her son reports she has had wheezing for the past couple weeks and gets short of breath with minimal exertion. Patient reports nonproductive cough, orthopnea, denies any chest pain. She also endorses bilateral leg swelling that appeared after she started Amlodipine 1 month ago. She was taken off Lisinopril & HCTZ during her hospitalization in 2018 and they were never restarted after discharge. Reports her BP has been running 180's/90' s at home. ED Course: CTA to rule out PE showed mild bilateral pleural effustions and air space opacities, trops were neg, lasix 40, Zofran, nitro sublingual and aspirin were administered. Nitro-Bid patch was placed for HTN urgency. - Allergies/Adverse Reactions Allergies Allergy/AdvReac Type Severity Reaction Status Date / Time Penicillins Allergy Severe Anaphylaxis Verified 01/26/18 21:34 - Home Medications Medication Instructions Recorded Confirmed Type metFORMIN HCl [Metformin HCl ER] 500 mg PO DAILY 01/26/18 04/16/18 History Acetaminophen [Tylenol Regular 650 mg PO Q4H PRN tab 02/01/18 04/16/18 Rx Strength] Ergocalciferol [Drisdol] 1.25 mg PO Q7DAYS #4 cap 02/01/18 04/16/18 Rx Albuterol Sulfate [Ventolin Hfa] 1 puff INH Q6HR PRN 04/16/18 04/16/18 History Amlodipine [Norvasc] 10 mg PO DAILY 04/16/18 04/16/18 History Ferrous Sulfate [Feosol] 325 mg PO Q2DAYS 04/16/18 04/16/18 History Metoprolol Tartrate [Lopressor] 50 mg PO BID 04/16/18 04/16/18 History predniSONE [predniSONE] 10 mg PO ASDIR 04/16/18 04/16/18 History - History PMHx: DMII, HTN, Fractured back in January 2018 PSHx: FHx: Social: Denies alcohol or drug use. Former smoker quit 10yrs ago. Lives at home with family - Review of Systems General: denies: fever/chills Respiratory: reports: cough, shortness of breath, exercise intolerance Cardiovascular: reports: edema (Reports it being related to Amlodipine). denies : chest pain Gastrointestinal: denies: nausea, vomiting, diarrhea Genitourinary: denies: polyuria Musculoskeletal: denies: pain - Vital signs BP: 181/76 HR: 76 RR: 19 Tmax: 97.7 Pox: 94% on RA - Physical Exam Constitutional: NAD, awake, alert and oriented, well developed HEENT: normocephalic and atraumatic, PERRLA, MMM, oropharynx clear Neck: supple, trachea midline, no LAD Heart: RRR, no murmurs/rubs/gallops, pulses present, other (2+ edema bilateral LE) Lungs: other (Moderate respiratory distress, working in 3-4 word sentences. Expiratory wheezing bilateral upper lung ambrose. Crackles and distant breath sounds in bases.) Abdomen: soft, non-tender Musculoskeletal: normal structure Skin: capillary refill <2 seconds Psychiatric: normal mood and affect, good judgment and insight FMR H&P: Results - EKG Interpretation EKG: NSR, 74, possible LAE - Radiology Interpretation CT scan - chest Status: report reviewed by me Additional comment: No evidence of PE. Mild right middle lobe, lingular and bilateral LL areas air space opacity-atelectasis/scarring. Mild bilateral pleural effusions R>L FMR H&P: A/P - Problem List (1) Acute exacerbation of CHF (congestive heart failure) Current Visit: Yes Status: Suspected Code(s): I50.9 - HEART FAILURE, UNSPECIFIED (2) New onset of congestive heart failure Current Visit: Yes Status: Suspected Code(s): I50.9 - HEART FAILURE, UNSPECIFIED (3) Hypertensive urgency Current Visit: Yes Status: Acute Code(s): I16.0 - HYPERTENSIVE URGENCY (4) Hypertension Current Visit: Yes Status: Chronic Code(s): I10 - ESSENTIAL (PRIMARY) HYPERTENSION (5) Diabetes mellitus type 2 in nonobese Current Visit: Yes Status: Chronic Code(s): E11.9 - TYPE 2 DIABETES MELLITUS WITHOUT COMPLICATIONS (6) YUMI (acute kidney injury) Current Visit: Yes Status: Acute Code(s): N17.9 - ACUTE KIDNEY FAILURE, UNSPECIFIED (7) CKD (chronic kidney disease) Current Visit: Yes Status: Acute Code(s): N18.9 - CHRONIC KIDNEY DISEASE, UNSPECIFIED (8) Pleural effusion Current Visit: Yes Status: Acute Code(s): J90 - PLEURAL EFFUSION, NOT ELSEWHERE CLASSIFIED (9) Vitamin D deficiency Current Visit: Yes Status: Acute Code(s): E55.9 - VITAMIN D DEFICIENCY, UNSPECIFIED (10) Microcytic anemia Current Visit: Yes Status: Acute Code(s): D50.9 - IRON DEFICIENCY ANEMIA, UNSPECIFIED - Plan Ms Mcguire is a 78yo female with pmh of DMII, and HTN presenting with worsening shortness of breath. 1. New onset CHF with acute exacerbation - Worsening SOB for one week, no previous dx of CHF - CT: No evidence of PE. Mild Right middle lobe lingular & bilateral lower lobe areas air space opacity. Atelectasis/scarring. Mild bilateral pleural effusions - Trop 0.012 - Echo today - Consider Cardiology consult - Continue home metoprolol - Hold off for now on continuing prednisone taper 2. HTN urgency - Lisinopril & HCTZ were d/c'ed during January 2018 hospitalization and never resumed in clinic after discharge - 190's/80's - Nitro-Bid Patch in place - BP has been trending down, consider restarting Lisinopril & HCTZ prior to discharge - Continue Metoprolol, Amlodipine 3. Pleural Effusion - likely 2/2 to CHF exacerbation 4. Vitamin D deficiency - 7.1 01/18/18 - Continue to monitor 5. Chronic Microcytic Anemia - Hgb 10.2 - Continue to monitor 6. YUMI - Cr 1.4 - BUN/Cr >20 7. DMII - Hold home metformin - Accuchecks - SSI FMR H&P: Upper Level - Pertinent history 78 yr old female with PMH of HTN, DM II, CKD stage 3 presents with SOB. She reports her SOB began about a week ago and she saw her PCP at that time. He prescribed her albuterol and prednisone taper at that time. 3 days later a CXR was obtained because she was not improving on the treatment. Last night she felt like the SOB was worsening and went to [place] [facility]. She was transferred to [facility] due to severe elevated BP. She denies chest pain, palpitations. She reports a mild cough with light clear sputum. She reports her BP running around 185/80 at home all the time. Of note, she was seen in 01/2018 for a l1 nontraumatic vertebral fracture ad at that time had an YUMI on CKD. Her HCTZ and Lisinopril were subsequently stopped but not restarted in the outpatient setting. She has since been on amlodipine and metoprolol. - Pertinent findings Gen: NAD resting comfortably in bed. She has somewhat of a tremor in her voice. Cardiac: 2/6 systolic murmur heard best in LUST, RRR Lungs: Good air movement bilaterally, crackles in BLL. No wheezes, rhales, rhonchi. Abd: non tender to palpation Ext: no edema in BLE Chest CTA: Mild bilateral pleural effusion R> L , no evidence for PE, bilateral lower lobe air space opacities CXR: cardiomegaly and mild congestive change - Plan Date/Time: 04/16/18 0356 I, [Concha Mariscal], have evaluated this patient and agree with findings/plan as outlined by production intern resident. Pertinent changes/additions are listed here. 78 yr old female with progressively worsening dyspnea New onset CHF with exacerbation -Given 40 IV Lasix in ER -ECHO in AM -NPO for now in case of further testing -Need to consider addition of FAWAD-I, switching Beta anupama to coreg Hypertensive Urgency -Severe range BP although appears to be chronic -On nitro patch currently -hold metoprolol and consider starting coreg -cont amlodipine -consider restarting FAWAD-I YUMI on CKD stage 3 -gentle oral fluids in light of CHF exacerbation -monitor BMP Bilateral lower lobe pleural effusions -presumably 2/2 new onset CHF -monitor DM II -likely worsened hyperglycemia 2/2 to recent steroid use -hgb A1C 6.2 in 03/2018 -hold metformin for now -start mild SSI Vitamin D Def -cont home vit D supplement -no indication to check this at this time Chronic Microcytic Anemia - likely a mixture of iron def and anemia of chronic disease -patient needs outpatient colonoscopy as previously discussed during last hospitalization DVT ppx -renally dose lovenox no GI ppx at this time -NPO for now
[2018-04-16] MEDS ORDERED: Dextrose 5% in Water 1,000 ML IV PRN (05:01)
[2018-04-16] MEDS ORDERED: Dextrose 50% Abboject 50 ML SYRINGE SLOW IVP PRN (05:01)
--- NOTE | 2018-04-16 05:44 | PDOC.FM ---
- Subjective Subjective: Patient states she feels well this morning. Denies any chest pain or SOB. Wants to know if she can have something to eat. - Objective MAR Reviewed: Yes Vital Signs & Weight: Vital Signs (12 hours) Temp Pulse Resp BP Pulse Ox 04/16/18 05:09 97.6 F 74 18 188/77 H 93 L Weight Weight 76.884 kg Result Diagrams: 04/16/18 05:13 EKG Reviewed by me: Yes Radiology Reviewed by me: Yes Phys Exam - Physical Examination Constitutional: NAD Respiratory: no wheezing, no rales, clear to auscultation bilateral Cardiovascular: RRR, no significant murmur Gastrointestinal: soft, non-tender, no distention, positive bowel sounds Musculoskeletal: no edema Neurological: moves all 4 limbs Psychiatric: normal affect, A&O x 3 Skin: no rash Dx/Plan (1) Acute exacerbation of CHF (congestive heart failure) Code(s): I50.9 - HEART FAILURE, UNSPECIFIED Status: Acute Plan: - Resolved. Patient is clinically stable and no rales were appreciated on exam. (2) New onset of congestive heart failure Code(s): I50.9 - HEART FAILURE, UNSPECIFIED Status: Acute Plan: - Echo and cards consult to be done today. - LHC to be done today. (3) Hypertensive urgency Code(s): I16.0 - HYPERTENSIVE URGENCY Status: Acute Plan: - Will confirm and restart all home meds once med list is obtained. (4) Diabetes mellitus type 2 in nonobese Code(s): E11.9 - TYPE 2 DIABETES MELLITUS WITHOUT COMPLICATIONS Status: Chronic Plan: - Will resume home dose of metformin at 500mg PO QD. (5) Microcytic anemia Code(s): D50.9 - IRON DEFICIENCY ANEMIA, UNSPECIFIED Status: Chronic Plan: - Appears to be anemia of chronic disease after reviewing Iron studies from last admission in January. - Has a low Hgb this visit around 10. - CRP is WNL & ESR was slightly elevated at 45. Therefore concern for malignancy as a cause of her anemia is quite low.
[2018-04-16] MEDS ORDERED: Furosemide 40 MG/4 ML VIAL SLOW IVP SCH ×4 (06:00→14:00)
[2018-04-16] MEDS ORDERED: Ondansetron HCl/PF 4 MG/2 ML Vial IVP PRN (06:03)
[2018-04-16] MEDS ORDERED: Ondansetron ODT 4 MG TAB SL PRN (06:03)
[2018-04-16 06:12] LABS: Troponin I Less than 0.010 ng/mL (< 0.028)
[2018-04-16] MEDS ORDERED: Ondansetron ODT 4 MG TAB PO PRN (06:12)
[2018-04-16] MEDS ORDERED: Calcium Carbonate 500 MG ChewTAB PO PRN (06:12)
[2018-04-16 06:44] LABS: Anion Gap 14 mmol/L (10-20); BUN (Urea Nitrogen) 41 mg/dL (9.8-20.1); Calc. Creatinine Clearance 40 mL/min (70-130); Calcium 8.8 mg/dL (7.8-10.44); Carbon Dioxide 23 mmol/L (23-31); Chloride 105 mmol/L (98-107); Estimated GFR-MDRD 35; Glucose 267 mg/dL (83-110); Sodium 138 mmol/L (136-145)
[2018-04-16] MEDS ORDERED: hydrALAZINE 20 MG/ML VIAL SLOW IVP PRN (06:46)
--- NOTE | 2018-04-16 08:23 | CT ---
PRELIMINARY REPORT/[facility]/EMERGENTY AFTER-HOURS PROCEDURE CT Head Without Intravenous Contrast CLINICAL HISTORY: 55 years old, female; Injury or trauma; Fall; Initial encounter; Blunt trauma (contusions or hematoma s); Consciousness not specified; Patient HX: Inpatient, unwitnessed fall in room, hit head, unkown lo c TECHNIQUE: Axial computed tomography images of the head/brain without intravenous contrast. COMPARISON: No relevant prior studies available. FINDINGS: Brain: No evidence of acute intracranial hemorrhage, extraxial fluid or midline shift. Mild cerebral atrophy. 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 Cerebellum atrophic; otherwise, posterior fossa structures within normal limits. Ventricles: Normal. No ventriculomegaly. Bones/joints: Normal. No acute fracture. Sinuses: Mild bilateral sphenoid and sinus fluid/soft tissue. Mastoid air cells: Normal as visualized. No mastoid effusion. Soft tissues: Mild right frontoparietal scalp swelling-hematoma. IMPRESSION: 1. No evidence of acute intracranial hemorrhage, extraxial fluid or midline shift. 2. Mild right frontoparietal scalp swelling-hematoma. 3. Mild bilateral sphenoid and sinus fluid/soft tissue. Thank you for allowing us to participate in the care of your patient. Dictated and Authenticated by: Shivani Jerez MD 04/16/2018 2:36 AM Central Time ([place] & [place]) FINAL REPORT EMERGENCY AFTER HOURS EXAM CT ARTERIOGRAM CHEST WITH IV CONTRAST AND 3D MIP IMAGING CT ARTERIOGRAM ABDOMEN WITH IV CONTRAST AND 3D MIP IMAGING: Date: 04/16/18 Time: 0152 hours HISTORY: Chest and abdomen pain. Dyspnea. FINDINGS: Findings agree with the preliminary report by Colleen. No CT evidence of pulmonary embolus. Subtle bibas ilar infiltrates and small bilateral pleural effusions may reflect bibasilar pneumonitis. Evidence of healed granulomatous disease. Prominent atherosclerosis. Mild to moderate narrowing at the origin of the superior mesenteric artery and approximately 50% stenosis at the origin of each renal artery. POS: [facility]
[2018-04-16] MEDS: Nitroglycerin 2% Ointment 1 INCH/1 GM Packet TOP SCH ×2 (08:44→15:15)
[2018-04-16] MEDS: Enoxaparin Sodium 30 MG/0.3 ML SYRINGE SC SCH (08:44)
[2018-04-16 08:48] LABS: Troponin I Less than 0.010 ng/mL (< 0.028)
[2018-04-16] MEDS ORDERED: Amlodipine 10 MG TAB PO SCH (09:00)
[2018-04-16] MEDS ORDERED: Metoprolol Tartrate 50 MG TAB PO SCH (09:00)
[2018-04-16] MEDS ORDERED: Aspirin 325 MG TAB PO SCH (09:00)
[2018-04-16] MEDS ORDERED: Lisinopril 10 MG TAB PO SCH (10:45)
[2018-04-16] MEDS ORDERED: Hydrochlorothiazide 25 MG TAB PO SCH (11:00)
--- NOTE | 2018-04-16 11:28 | ADD-PRG ---
DATE OF SERVICE: 04/16/2018 ADDENDUM Please add this is an addendum to the note of Dr. Briseyda Zarate. Ms. Mcguire is a pleasant 78-year-old female who was admitted with new onset heart failure. We are in the midst of getting her echo, so we are not certain yet whether this was reduced or prese rved ejection fraction heart failure. In the event, given that she does have new onset of heart fail ure, Cardiology was consulted and will later take her for cardiac catheterization. She also has what appears to be a long history of poorly controlled hypertension which may be contributory to her hear t failure as well. We are instituting treatments for her hypertension. Her initial troponins were less than 0.010. Her electrolytes; sodium 138, potassium 4, chloride 105, bicarbonate 23, BUN is 41 with creatinine of 1.47 with an estimated GFR of 35. Her chest CTA showed no evidence of pulmonary embolus.
[2018-04-16] MEDS: HumaLOG 300 UNITS/3 ML VIAL SC PRN ×2 (11:57→17:31)
[2018-04-16] MEDS ORDERED: ISOVUE-370 76%-LOCM 1 ML ONE (12:07)
[2018-04-16] MEDS ORDERED: NIFEdipine XL 30 MG TAB PO SCH (12:30)
--- NOTE | 2018-04-16 12:49 | CON ---
DATE OF CONSULTATION: 04/16/2018 HISTORY: The patient is a 78-year-old woman who presented with increasing dyspnea. The patient stat es that she was in her usual state of health until about a week ago when she started having with dysp brenna at rest. She also had a nonproductive cough. She was treated with steroids and antibiotics for presumed bronchitis. The patient presented to the emergency room with acute severe dyspnea. The rich ent denied having any chest discomfort. The patient does report having chest pain with exertion. Sh e states when she walks approximately a mile she would develop substernal chest pain at times. This was relieved immediately by rest. The patient denies having any chest discomfort at rest. The patie nt has multiple cardiac risk factors including hypertension, diabetes mellitus, and a family history of coronary artery disease. PAST MEDICAL HISTORY: 1. Hypertension. 2. Diabetes mellitus. 3. She had a fractured back. PAST SURGICAL HISTORY: She has had a . SOCIAL HISTORY: Former smoker. FAMILY HISTORY: Positive family history of heart disease. Father had a myocardial infarction. ALLERGIES: She is allergic to PENICILLIN. MEDICATIONS ON ADMISSION: Metformin 500 mg daily, Norvasc 10 daily, iron sulfate 325 two tablets nina ly. REVIEW OF SYSTEMS: Ten-point system otherwise unremarkable. No history of nausea, vomiting, fevers or chills. Ten-point system otherwise unremarkable. PHYSICAL EXAMINATION: GENERAL: This is an obese woman in no acute distress. VITAL SIGNS: Blood pressure was 173/73. NECK: Showed no jugular venous distention. LUNGS: Clear to auscultation. HEART: Regular rate and rhythm, normal S1, S2 with a 2/6 systolic murmur. ABDOMEN: Distended. EXTREMITIES: Showed mild bilateral edema. SKIN: Warm and dry. NEUROLOGIC: Nonfocal. VASCULAR: Radial pulses are 2+. LABORATORY RESULTS: Sodium was 138, potassium 4.0, chloride 105, bicarbonate 23, BUN 41, creatinine 1.47, troponin less than 0.01. Her white blood cell count was 12.9, hemoglobin 10.2, hematocrit 34.5 and her platelets were 375. Her BNP level was 990. Her EKG revealed normal sinus rhythm with a normal ECG. Her CT scan of the chest revealed no evidenc e of a pulmonary embolus. There was evidence of a renal artery stenosis and mesenteric stenosis. IMPRESSION: 1. New onset congestive heart failure, probably secondary to diastolic dysfunction. 2. Chest pain suggestive of exertional angina. 3. Hypertension. 4. Diabetes mellitus. 5. Renal artery stenosis. 6. Mesenteric stenosis. 7. Renal insufficiency. 8. Anemia. 9. Obesity. This patient presents with new onset heart failure, probably secondary to diastolic dysfunction and p oorly controlled hypertension. The patient also has evidence of renal artery stenosis and therefore would avoid FAWAD inhibitor therapy. I would add nifedipine to better control her blood pressure. The patient should be on lipid lowering medication to meet ACC guidelines. I will start the patient on Lipitor. The patient has evidence of significant vascular disease, and I have discussed the option o f proceeding directly with a cardiac catheterization to evaluate if she has significant coronary denzel ry disease. The patient states she prefers to have a noninvasive evaluation. We will proceed with s tress testing, if there is any evidence of ischemia, then she will need to undergo invasive cardiac c atheterization. The patient will be continued on aspirin. We will follow this patient with ebony mae her hospitalization.
[2018-04-16] MEDS: guaiFENesin ER 600 MG TAB PO SCH (20:58)
[2018-04-16] MEDS: Atorvastatin Calcium 40 MG TAB PO SCH (20:58)
[2018-04-16] MEDS: NIFEdipine XL 30 MG TAB PO SCH (20:58)
[2018-04-17 04:56] LABS: #Basophils 0.1 thou/uL (0.0-0.2); #Lymphocytes 3.5 thou/uL (1.20-3.40); #Neutrophils 7.8 thou/uL (1.40-6.50); %Basophils 0.6 % (0.0-1.0); %Eosinophils 0.2 % (0.0-10.0); %Lymphocytes 28.4 % (21.0-51.0); %Neutrophils 62.7 % (42.0-75.0); Hemoglobin 8.9 g/dL (12.0-16.0); Mean Corpuscular HGB CONC 32.1 g/dL (32.0-36.0); Mean Corpuscular Hemoglobin 24.9 pg (27.0-31.0); Mean Corpuscular Volume 77.5 fL (78.0-98.0); Mean Platelet Volume 8.8 fL (7.4-10.4); Platelet Count 284 thou/uL (130-400); RBC Distribution Width 15.8 % (11.5-14.5); Red Blood Cell (RBC) Count 3.55 mill/uL (4.20-5.40); White Blood Cell (WBC) Count 12.4 thou/uL (4.8-10.8)
[2018-04-17 05:21] LABS: Anion Gap 12 mmol/L (10-20); BUN (Urea Nitrogen) 53 mg/dL (9.8-20.1); Calc. Creatinine Clearance 35 mL/min (70-130); Calcium 8.2 mg/dL (7.8-10.44); Carbon Dioxide 25 mmol/L (23-31); Chloride 106 mmol/L (98-107); Estimated GFR-MDRD 30; Glucose 151 mg/dL (83-110); Potassium 3.4 mmol/L (3.5-5.1); Sodium 140 mmol/L (136-145)
--- NOTE | 2018-04-17 07:52 | PDOC.FM ---
- Subjective Subjective: Patient reports that her breathing is a little improved today. She reports that the breathing treatments have helped as well as the lasix. She is anxious about the stress test. - Objective MAR Reviewed: Yes Vital Signs & Weight: Vital Signs (12 hours) Temp Pulse Resp BP BP BP Pulse Ox 04/17/18 06:41 79 16 93 L 04/17/18 04:00 97.2 F L 84 15 139/62 91 L 04/17/18 02:17 75 12 04/16/18 23:46 98.2 F 77 17 116/55 L 92 L 04/16/18 22:14 62 12 04/16/18 20:58 85 128/73 04/16/18 20:00 98.6 F 75 18 96 Weight Weight 77.564 kg I&O: 04/16/18 04/17/18 04/18/18 06:59 06:59 06:59 Intake Total 0 120 Output Total 850 400 Balance -850 -280 Result Diagrams: 04/17/18 04:07 04/17/18 04:07 <Concha Boudreaux - Last Filed: 04/17/18 07:49> - Objective Vital Signs & Weight: Vital Signs (12 hours) Temp Pulse Resp BP BP Pulse Ox 04/17/18 06:41 79 16 93 L 04/17/18 04:00 97.2 F L 84 15 139/62 91 L 04/17/18 02:17 75 12 04/16/18 23:46 98.2 F 77 17 116/55 L 92 L Weight Weight 77.564 kg I&O: 04/16/18 04/17/18 04/18/18 06:59 06:59 06:59 Intake Total 0 120 Output Total 850 400 Balance -850 -280 Result Diagrams: 04/17/18 04:07 04/17/18 04:07 <Katie Navarro - Last Filed: 04/17/18 10:35> Phys Exam - Physical Examination Constitutional: NAD HEENT: moist MMs Respiratory: no rales, no rhonchi mild wheezing Cardiovascular: RRR, no significant murmur, no rub Gastrointestinal: soft, non-tender, no distention, positive bowel sounds Musculoskeletal: edema present (trace pitting edema in BLE) Neurological: non-focal, moves all 4 limbs Psychiatric: normal affect, A&O x 3 Skin: normal turgor, cap refill <2 seconds <Concha Boudreaux - Last Filed: 04/17/18 07:49> Dx/Plan (1) New onset of congestive heart failure Code(s): I50.9 - HEART FAILURE, UNSPECIFIED Status: Acute (2) Hypertensive urgency Code(s): I16.0 - HYPERTENSIVE URGENCY Status: Acute (3) Acute exacerbation of CHF (congestive heart failure) Code(s): I50.9 - HEART FAILURE, UNSPECIFIED Status: Acute QualifierTitle: Heart failure type: diastolic Qualified Code(s): I50.33 - Acute on chronic diastolic (congestive) heart failure (4) YUMI (acute kidney injury) Code(s): N17.9 - ACUTE KIDNEY FAILURE, UNSPECIFIED Status: Acute (5) CKD (chronic kidney disease) Code(s): N18.9 - CHRONIC KIDNEY DISEASE, UNSPECIFIED Status: Acute QualifierTitle: Chronic kidney disease stage: stage 3 (moderate) Qualified Code(s): N18.3 - Chronic kidney disease, stage 3 (moderate) (6) Vitamin D deficiency Code(s): E55.9 - VITAMIN D DEFICIENCY, UNSPECIFIED Status: Acute (7) Diabetes mellitus type 2 in nonobese Code(s): E11.9 - TYPE 2 DIABETES MELLITUS WITHOUT COMPLICATIONS Status: Chronic (8) Hypertension Code(s): I10 - ESSENTIAL (PRIMARY) HYPERTENSION Status: Chronic QualifierTitle: Hypertension type: essential hypertension Qualified Code( s): I10 - Essential (primary) hypertension (9) Microcytic anemia Code(s): D50.9 - IRON DEFICIENCY ANEMIA, UNSPECIFIED Status: Chronic - Plan Plan: New onset of congestive heart failure Echo showed EF of 65-70% with evidence of diastolic dysfunction. Increased R ventricular systolic function. Mild to moderate mitral regurgitation. - Cardiology on board, appreciate recs - 2nd portion of stress test planned for today - Encourage good BP control as well as diet and exercise. Hypertensive urgency BP much better controlled at this time. - Nifedipine per cards - Will continue to f/u outpatient Diabetes mellitus type 2 in nonobese - Cont home dose of metformin at 500mg PO QD. Microcytic anemia - Appears to be anemia of chronic disease after reviewing Iron studies from last admission in January. - Has a low Hgb this visit around 9 - CRP is WNL & ESR was slightly elevated at 45. Therefore concern for malignancy as a cause of her anemia is quite low. May be 2/2 CKD <Concha Boudreaux - Last Filed: 04/17/18 07:49> Attending Addendum - Attending Addendum Date/Time: 04/17/18 1034 I personally evaluated the patient and discussed the management with Dr. Boudreaux. I agree with the History, Examination, Assessment and Plan documented above with any addition or exceptions noted below. The patient's lower extremity edema is improving. She still notes a little shortness of breath. Will give additional iv lasix today. Pt will have 2nd part of stress test today. Hb has decreased but will monitor as she has chronic anemia. <Katie Navarro - Last Filed: 04/17/18 10:35>
[2018-04-17] MEDS ORDERED: Lisinopril 10 MG TAB PO SCH (09:00)
[2018-04-17] MEDS ORDERED: Hydrochlorothiazide 25 MG TAB PO SCH (09:00)
[2018-04-17] MEDS ORDERED: Lisinopril 5 MG TAB PO SCH (09:00)
[2018-04-17] MEDS: guaiFENesin ER 600 MG TAB PO SCH ×2 (09:04→21:10)
[2018-04-17] MEDS: Aspirin 325 MG TAB PO SCH (09:04)
[2018-04-17] MEDS ORDERED: Furosemide 40 MG/4 ML VIAL SLOW IVP SCH (10:00)
[2018-04-17] MEDS ORDERED: ADENOSINE 60 MG/20 ML VIAL ONE (11:09)
--- NOTE | 2018-04-17 11:50 | EKG ---
Test Reason : CHF AFIB Blood Pressure : / mmHG Vent. Rate : 074 BPM Atrial Rate : 074 BPM P-R Int : 150 ms QRS Dur : 088 ms QT Int : 404 ms P-R-T Axes : 022 026 049 degrees QTc Int : 448 ms Normal sinus rhythm Possible Left atrial enlargement Septal infarct , age undetermined Abnormal ECG Confirmed by PERRY LIRIANO, CARMINE ([id number]), magazine editor DANIEL HARRINGTON ([id number]) on 04/17/2018 11:50:19 AM Referred By: Confirmed By:CARMINE AMADOR MD
[2018-04-17] MEDS: NIFEdipine XL 30 MG TAB PO SCH ×2 (12:22→21:12)
[2018-04-17] MEDS: Enoxaparin Sodium 30 MG/0.3 ML SYRINGE SC SCH (12:23)
[2018-04-17] MEDS: metFORMIN 500 MG TAB PO SCH (12:23)
--- NOTE | 2018-04-17 13:25 | NM ---
MYOCARDIAL PERFUSION EVALUATION: CLINICAL HISTORY: Chest pain. FINDINGS: Reference stress EKG portion of the exam through the division of cardiology for further details in th is regard. Upon administration of 27 mCi Technetium 99m sestamibi IV at stress and 20.7 mCi Technetium 99m sesta mibi IV at rest, scintigraphic imaging was acquired of the left ventricular pace. There is no signi ficant perfusion defect. Gated imaging reveals wall motion and contractility. Calculated LVEF is 71 %. IMPRESSION: 1. There is no scintigraphic evidence for significant ischemic or scar. 2. Normal left ventricular systolic function. POS: [facility]
[2018-04-17] MEDS: Atorvastatin Calcium 40 MG TAB PO SCH (21:10)
[2018-04-18 04:43] LABS: #Basophils 0.1 thou/uL (0.0-0.2); #Eosinphils 0.2 thou/uL (0.0-0.7); #Lymphocytes 3.5 thou/uL (1.20-3.40); #Monocytes 0.9 thou/uL (0.11-0.59); #Neutrophils 7.1 thou/uL (1.40-6.50); %Basophils 0.9 % (0.0-1.0); %Eosinophils 1.6 % (0.0-10.0); %Lymphocytes 29.4 % (21.0-51.0); %Monocytes 7.3 % (0.0-10.0); %Neutrophils 60.8 % (42.0-75.0); Hemoglobin 9.7 g/dL (12.0-16.0); Mean Corpuscular Hemoglobin 24.8 pg (27.0-31.0); Mean Corpuscular Volume 77.4 fL (78.0-98.0); Mean Platelet Volume 9.4 fL (7.4-10.4); Platelet Count 289 thou/uL (130-400); RBC Distribution Width 15.8 % (11.5-14.5); Red Blood Cell (RBC) Count 3.92 mill/uL (4.20-5.40); White Blood Cell (WBC) Count 11.7 thou/uL (4.8-10.8)
[2018-04-18 04:46] LABS: Anion Gap 13 mmol/L (10-20); BUN (Urea Nitrogen) 49 mg/dL (9.8-20.1); Calc. Creatinine Clearance 40 mL/min (70-130); Calcium 8.2 mg/dL (7.8-10.44); Carbon Dioxide 26 mmol/L (23-31); Chloride 103 mmol/L (98-107); Estimated GFR-MDRD 35; Glucose 144 mg/dL (83-110); Potassium 3.2 mmol/L (3.5-5.1); Sodium 139 mmol/L (136-145)
--- NOTE | 2018-04-18 05:32 | PDOC.FM ---
- Subjective Subjective: Patient states she feels worse compared to yesterday. Says upon returning to bed after using the restroom she gets quite short of breath and has some pressure-like chest pain that resolves with rest. She just reports that it takes her a while to get back to feeling comfortable. Does not feel like the breathing treatments are helping that much and has been unable to cough up any sputum despite being on duonebs q4h & mucinex for 2 days. Denies any fever or chills. +Says she is not ready to go home & would be willing to go to a rehab center before returning home if that is what we recommend. - Objective MAR Reviewed: Yes Vital Signs & Weight: Vital Signs (12 hours) Temp Pulse Resp BP BP BP Pulse Ox 04/18/18 04:00 98.3 F 90 24 H 148/65 H 89 L 04/18/18 02:38 12 04/17/18 22:08 91 12 04/17/18 21:12 71 133/60 04/17/18 20:00 98.1 F 91 12 133/60 92 L 04/17/18 18:28 72 12 90 L Weight Weight 77.564 kg I&O: 04/16/18 04/17/18 04/18/18 06:59 06:59 06:59 Intake Total 0 120 Output Total 850 400 Balance -850 -280 Result Diagrams: 04/18/18 03:48 04/18/18 03:48 EKG Reviewed by me: Yes Radiology Reviewed by me: Yes <Briseyda Zarate - Last Filed: 04/18/18 07:37> - Objective Vital Signs & Weight: Vital Signs (12 hours) Temp Pulse Pulse Pulse Resp BP BP 04/18/18 10:10 95 113 H 148/64 H 04/18/18 08:15 89 138/63 04/18/18 07:00 99.0 F 89 18 04/18/18 06:51 90 16 04/18/18 04:00 98.3 F 90 24 H 04/18/18 02:38 12 BP BP Pulse Ox 04/18/18 10:10 184/77 H 04/18/18 08:15 04/18/18 07:00 138/63 93 L 04/18/18 06:51 95 04/18/18 04:00 148/65 H 89 L 04/18/18 02:38 Weight Weight 77.564 kg I&O: 04/17/18 04/18/18 04/19/18 06:59 06:59 06:59 Intake Total 120 480 Output Total 400 800 Balance -280 -320 Result Diagrams: 04/18/18 03:48 04/18/18 03:48 <RamonKatie - Last Filed: 04/18/18 12:52> Phys Exam - Physical Examination Constitutional: NAD Neck: full ROM Respiratory: no wheezing Rales in LLL on auscultation. Cardiovascular: RRR Systolic flow murmur heard better on the right. Musculoskeletal: no edema, pulses present Neurological: moves all 4 limbs Psychiatric: normal affect, A&O x 3 Skin: no rash <Briseyda Zarate - Last Filed: 04/18/18 07:37> Dx/Plan (1) Acute exacerbation of CHF (congestive heart failure) Code(s): I50.9 - HEART FAILURE, UNSPECIFIED Status: Acute QualifierTitle: Heart failure type: diastolic Qualified Code(s): I50.33 - Acute on chronic diastolic (congestive) heart failure Plan: - Resolved. Patient is clinically stable and no rales were appreciated on exam. (2) New onset of congestive heart failure Code(s): I50.9 - HEART FAILURE, UNSPECIFIED Status: Acute Plan: - Echo and cards consult to be done today. - LHC to be done today. (3) Hypertensive urgency Code(s): I16.0 - HYPERTENSIVE URGENCY Status: Acute Plan: - Will confirm and restart all home meds once med list is obtained. (4) Diabetes mellitus type 2 in nonobese Code(s): E11.9 - TYPE 2 DIABETES MELLITUS WITHOUT COMPLICATIONS Status: Chronic Plan: - Will resume home dose of metformin at 500mg PO QD. (5) Microcytic anemia Code(s): D50.9 - IRON DEFICIENCY ANEMIA, UNSPECIFIED Status: Chronic Plan: - Appears to be anemia of chronic disease after reviewing Iron studies from last admission in January. - Has a low Hgb this visit around 10. - CRP is WNL & ESR was slightly elevated at 45. Therefore concern for malignancy as a cause of her anemia is quite low. - Plan Plan: Plan: 1. New onset of congestive heart failure - Echo on 04/16 showed EF of 65-70% with evidence of diastolic dysfunction, increased R ventricular systolic function, & mild to moderate mitral regurgitation. - Stress test was negative for any signs of ischemia - Cardiology on board. Will continue to follow recs. - Encourage good BP control as well as diet and exercise. - Still complaining of SOB, especially with exertion. Will start to wean duonebs but consider giving another dose of lasix today as rales were present on exam. Will get a repeat 2-view CXR to confirm presence of effusions and to r/ o any other acute cardiopulmonary process. - Will consult PT to get her up and moving as much as possible & CM to evaluate for rehab vs. placement. 2. Hypertensive urgency - BP much better controlled at this time. Was in the 130s/60s over the course of yesterday. - Will continue nifedipine BID per cards recommendation. - Will continue to f/u outpatient 3. Diabetes mellitus type 2 in nonobese - Better control now since admission. Was 151 this AM which is WNL considering the patient's age (goal is between 120-180 to prevent hypoglycemia in elderly). - Will continue home dose of metformin at 500mg PO QD. 4. Microcytic anemia - Appears to be anemia of chronic disease after reviewing Iron studies from last admission in January. - Has a low Hgb this visit around 9. - CRP is WNL & ESR was slightly elevated at 45. Therefore concern for malignancy as a cause of her anemia is quite low. Likely 2/2 CKD. - Will continue to monitor. 5. Hypokalemia - K of 3.2 this AM - Will replace w/ 40mEq PO today. - Will continue to monitor with AM BMPs. <Briseyda Zarate - Last Filed: 04/18/18 07:37> Attending Addendum - Attending Addendum Date/Time: 04/18/18 1251 I personally evaluated the patient and discussed the management with Dr. Zarate. I agree with the History, Examination, Assessment and Plan documented above with any addition or exceptions noted below. The patient is more fatigued today and notes shortness of breath with activity. Will get CXR, add incentive spirometry. Additional dose of lasix today. Has been cleared by cardiology for discharge. Will see how pt does over the course of the day before deciding on discharge. <Katie Navarro - Last Filed: 04/18/18 12:52>
[2018-04-18] MEDS ORDERED: Potassium Chloride 20 MEQ TAB PO SCH (07:45)
[2018-04-18] MEDS: metFORMIN 500 MG TAB PO SCH (08:15)
[2018-04-18] MEDS: NIFEdipine XL 30 MG TAB PO SCH ×2 (08:15→20:18)
[2018-04-18] MEDS: Enoxaparin Sodium 30 MG/0.3 ML SYRINGE SC SCH (08:15)
[2018-04-18] MEDS: guaiFENesin ER 600 MG TAB PO SCH ×2 (08:15→20:18)
[2018-04-18] MEDS: Aspirin 325 MG TAB PO SCH (08:15)
[2018-04-18] MEDS ORDERED: Furosemide 40 MG TAB PO SCH (09:45)
--- NOTE | 2018-04-18 10:00 | RAD ---
TWO VIEWS CHEST: HISTORY: Shortness of breath with exertion. COMPARISON: 04/15/18. FINDINGS: There are calcified right paratracheal lymph nodes. Normal cardiac silhouette. Atherosclerosis of t he aorta is identified. Calcified nodule in the right lung. Increased interstitial markings in the lung parenchyma are presu med to be chronic. No consolidation. No pleural effusion or pneumothorax. IMPRESSION: No acute cardiopulmonary process. POS: [facility]
[2018-04-18] MEDS: Acetaminophen 325 MG TAB PO PRN (18:06)
[2018-04-18] MEDS: Atorvastatin Calcium 40 MG TAB PO SCH (20:18)
[2018-04-19 04:39] LABS: #Basophils 0.1 thou/uL (0.0-0.2); #Eosinphils 0.2 thou/uL (0.0-0.7); #Lymphocytes 2.1 thou/uL (1.20-3.40); #Neutrophils 8.1 thou/uL (1.40-6.50); %Basophils 0.6 % (0.0-1.0); %Eosinophils 1.5 % (0.0-10.0); %Lymphocytes 18.6 % (21.0-51.0); %Monocytes 8.9 % (0.0-10.0); %Neutrophils 70.4 % (42.0-75.0); Hemoglobin 10.4 g/dL (12.0-16.0); Mean Corpuscular HGB CONC 32.6 g/dL (32.0-36.0); Mean Corpuscular Hemoglobin 24.9 pg (27.0-31.0); Mean Corpuscular Volume 76.2 fL (78.0-98.0); Mean Platelet Volume 9.1 fL (7.4-10.4); Platelet Count 315 thou/uL (130-400); RBC Distribution Width 15.7 % (11.5-14.5); White Blood Cell (WBC) Count 11.5 thou/uL (4.8-10.8)
[2018-04-19 04:47] LABS: Anion Gap 14 mmol/L (10-20); BUN (Urea Nitrogen) 29 mg/dL (9.8-20.1); Calc. Creatinine Clearance 43 mL/min (70-130); Calcium 8.9 mg/dL (7.8-10.44); Carbon Dioxide 27 mmol/L (23-31); Chloride 102 mmol/L (98-107); Estimated GFR-MDRD 38; Glucose 145 mg/dL (83-110); Potassium 3.8 mmol/L (3.5-5.1); Sodium 139 mmol/L (136-145)
--- NOTE | 2018-04-19 05:03 | PDOC.FM ---
- Subjective Subjective: This morning Ms Mcguire is doing well. She took a shower this morning and NPO for her heart cath. Denies any pain, SOB, or concerns at this time. Overnight she was tachycardic in the 130's while up walking. She was asymptomatic at the time. - Objective MAR Reviewed: Yes Vital Signs & Weight: Vital Signs (12 hours) Temp Pulse Resp BP BP Pulse Ox 04/19/18 03:38 99.3 F 97 16 143/66 H 93 L 04/18/18 22:14 16 04/18/18 20:18 104 H 151/67 H 04/18/18 20:00 100.3 F H 104 H 12 151/67 H 92 L Weight Weight 77.564 kg I&O: 04/17/18 04/18/18 04/19/18 06:59 06:59 06:59 Intake Total 093 557 0347 Output Total 102 375 1877 Balance -280 -320 -1100 Result Diagrams: 04/19/18 03:53 04/19/18 03:53 <Greta Barbosa - Last Filed: 04/19/18 11:51> - Objective Vital Signs & Weight: Vital Signs (12 hours) Temp Pulse Pulse Pulse Resp BP BP 04/19/18 14:01 99.0 F 82 19 04/19/18 13:53 88 18 04/19/18 11:50 99.1 F 103 H 20 04/19/18 09:13 99 146/65 H 04/19/18 08:48 99.7 F H 99 19 04/19/18 07:30 99 101 H 140/63 04/19/18 06:20 85 14 04/19/18 03:38 99.3 F 97 16 BP BP BP Pulse Ox Pulse Ox Pulse Ox 04/19/18 14:01 154/67 H 96 04/19/18 13:53 96 04/19/18 11:50 154/69 H 92 L 04/19/18 09:13 04/19/18 08:48 146/65 H 92 L 04/19/18 07:30 144/65 H 92 L 92 L 04/19/18 06:20 96 04/19/18 03:38 143/66 H 93 L Weight Weight 77.564 kg I&O: 04/18/18 04/19/18 04/20/18 06:59 06:59 06:59 Intake Total 480 1200 Output Total 800 2300 Balance -320 -1100 Result Diagrams: 04/19/18 03:53 04/19/18 03:53 <Raghav Lan - Last Filed: 04/19/18 15:16> Phys Exam - Physical Examination Constitutional: NAD HEENT: moist MMs Respiratory: no wheezing, clear to auscultation bilateral Cardiovascular: RRR Gastrointestinal: soft, non-tender, positive bowel sounds Musculoskeletal: pulses present, edema present Neurological: moves all 4 limbs Psychiatric: normal affect, A&O x 3 Skin: no rash, cap refill <2 seconds <Greta Barbosa - Last Filed: 04/19/18 11:51> Dx/Plan (1) Hypertension Code(s): I10 - ESSENTIAL (PRIMARY) HYPERTENSION Status: Chronic QualifierTitle: Hypertension type: essential hypertension Qualified Code( s): I10 - Essential (primary) hypertension (2) Diabetes mellitus type 2 in nonobese Code(s): E11.9 - TYPE 2 DIABETES MELLITUS WITHOUT COMPLICATIONS Status: Chronic (3) YUMI (acute kidney injury) Code(s): N17.9 - ACUTE KIDNEY FAILURE, UNSPECIFIED Status: Acute (4) CKD (chronic kidney disease) Code(s): N18.9 - CHRONIC KIDNEY DISEASE, UNSPECIFIED Status: Acute QualifierTitle: Chronic kidney disease stage: stage 3 (moderate) Qualified Code(s): N18.3 - Chronic kidney disease, stage 3 (moderate) (5) Pleural effusion Code(s): J90 - PLEURAL EFFUSION, NOT ELSEWHERE CLASSIFIED Status: Acute (6) Vitamin D deficiency Code(s): E55.9 - VITAMIN D DEFICIENCY, UNSPECIFIED Status: Acute (7) Microcytic anemia Code(s): D50.9 - IRON DEFICIENCY ANEMIA, UNSPECIFIED Status: Chronic - Plan Plan: Ms Mcguire is a 78yo female with pmh of DMII, chronic microcytic anemia, Vit D def, renal artery stenosis, L1 nontraumatic vertebral fracture presenting with new onset HFpER, HTN urgency, BL pleural effusions, YUMI on CKDIII. 1. New onset of congestive heart failure - Echo on 04/16 showed EF of 65-70% with evidence of diastolic dysfunction, increased R ventricular systolic function, & mild to moderate mitral regurgitation. - Nuclear Stress test was negative for any signs of ischemia - Cardiology on board. Will continue to follow recs. - Encourage good BP control as well as diet and exercise. - Still complaining of SOB, especially with exertion. Will start to wean duonebs. - Will consult PT to get her up and moving as much as possible & CM to evaluate for rehab vs. placement. - Increased fatigue and SOB yesterday with rales on exam, received additional dose of lasix - Incentive spirometry & CXR 04/18: no acute cardiopulmonary process - Restart metprolol prior to d/c - Await Cath results 2. Hypertensive urgency - Renal Artery Stenosis on CT- held FAWAD and started nifedipine. Not a surgical candidate at this time - BP much better controlled at this time. Was in the 130s/60s over the course of yesterday. - Will continue nifedipine BID per cards recommendation. - Will continue to f/u outpatient - Was on Amlodipine prior to admission, she was experiencing LE swelling. With controlled pressures and no benefit in CHF, likely not restart. - Restart metoprolol prior to d/c 3. Diabetes mellitus type 2 in nonobese - Better control now since admission. Was 145 this AM which is WNL considering the patient's age (goal is between 120-180 to prevent hypoglycemia in elderly). - Will continue home dose of metformin at 500mg PO QD. 4. Microcytic anemia - Appears to be anemia of chronic disease after reviewing Iron studies from last admission in January. - Has a low Hgb this visit around 9. - CRP is WNL & ESR was slightly elevated at 45. Therefore concern for malignancy as a cause of her anemia is quite low. Likely 2/2 CKD. - Will continue to monitor. - Hgb 10.4 today 5. Hypokalemia - K of 3.8 this AM - Will continue to monitor with AM BMPs. 6. YUMI- resolved DVT ppx: Lovenox & SCDs Code Status: FULL Dispo: awaiting CM & OT eval <Greta Barbosa - Last Filed: 04/19/18 11:51> Attending Addendum - Attending Addendum Date/Time: 04/19/18 [id number] I personally evaluated the patient and discussed the management with Dr. Barbosa I agree with the History, Examination, Assessment and Plan documented above with any addition or exceptions noted below.Patient for Heart catherization today. History and lab consistent with of Anemia of chronic disease. <Raghav Lan - Last Filed: 04/19/18 15:16>
[2018-04-19] MEDS: metFORMIN 500 MG TAB PO SCH (07:24)
[2018-04-19] MEDS: Enoxaparin Sodium 30 MG/0.3 ML SYRINGE SC SCH (07:24)
[2018-04-19] MEDS ORDERED: Furosemide 40 MG TAB PO SCH (09:00)
[2018-04-19] MEDS ORDERED: Communication Order-Pharmacy FS SCH ×2 (09:00)
[2018-04-19] MEDS: NIFEdipine XL 30 MG TAB PO SCH (09:13)
[2018-04-19] MEDS: guaiFENesin ER 600 MG TAB PO SCH ×2 (09:15→21:17)
[2018-04-19] MEDS: Aspirin 325 MG TAB PO SCH (09:15)
[2018-04-19] MEDS ORDERED: Iopamidol 370 76% 100 ML VIAL ONE (11:05)
[2018-04-19] MEDS ORDERED: Lidocaine 1% (PF) 30 ML VIAL ONE (12:11)
[2018-04-19] MEDS ORDERED: Midazolam HCl 2 mg/2 ml Vial ONE (12:48)
[2018-04-19] MEDS ORDERED: Acetaminophen/Codeine 30-300mg Tablet PO PRN ×2 (13:28)
[2018-04-19] MEDS ORDERED: Nitroglycerin 0.4 MG TAB (25 Tab Bottle) SL PRN (13:28)
[2018-04-19] MEDS ORDERED: traMADol HCl 50 MG TAB PO PRN (13:28)
[2018-04-19] MEDS ORDERED: Metoprolol Tartrate 5 MG/5 ML VIAL ONE (13:29)
[2018-04-19] MEDS ORDERED: Sodium Chloride 0.9% 200 ML IV PRN (13:30)
[2018-04-19] MEDS ORDERED: Clopidogrel Bisulfate 300 MG TAB PO SCH (13:45)
[2018-04-19] MEDS: HumaLOG 300 UNITS/3 ML VIAL SC PRN (17:30)
[2018-04-19] MEDS: Acetaminophen 325 MG TAB PO PRN (17:35)
[2018-04-19] MEDS ORDERED: Polyethylene Glycol 3350 17 GM Packet PO PRN (19:25)
[2018-04-19] MEDS: Atorvastatin Calcium 40 MG TAB PO SCH (21:17)
[2018-04-20 04:50] LABS: #Basophils 0.1 thou/uL (0.0-0.2); #Eosinphils 0.2 thou/uL (0.0-0.7); #Lymphocytes 2.2 thou/uL (1.20-3.40); #Monocytes 1.1 thou/uL (0.11-0.59); #Neutrophils 8.8 thou/uL (1.40-6.50); %Basophils 0.4 % (0.0-1.0); %Eosinophils 1.6 % (0.0-10.0); %Lymphocytes 17.6 % (21.0-51.0); %Monocytes 8.6 % (0.0-10.0); %Neutrophils 71.8 % (42.0-75.0); Mean Corpuscular HGB CONC 31.5 g/dL (32.0-36.0); Mean Corpuscular Hemoglobin 24.1 pg (27.0-31.0); Mean Corpuscular Volume 76.5 fL (78.0-98.0); Mean Platelet Volume 9.1 fL (7.4-10.4); Platelet Count 315 thou/uL (130-400); RBC Distribution Width 15.8 % (11.5-14.5); Red Blood Cell (RBC) Count 4.15 mill/uL (4.20-5.40); White Blood Cell (WBC) Count 12.3 thou/uL (4.8-10.8)
[2018-04-20 05:06] VITALS: BMI 26.9
[2018-04-20 05:10] LABS: Anion Gap 16 mmol/L (10-20); BUN (Urea Nitrogen) 25 mg/dL (9.8-20.1); Calc. Creatinine Clearance 37 mL/min (70-130); Calcium 8.5 mg/dL (7.8-10.44); Carbon Dioxide 25 mmol/L (23-31); Chloride 101 mmol/L (98-107); Estimated GFR-MDRD 35; Glucose 133 mg/dL (83-110); Potassium 3.7 mmol/L (3.5-5.1); Sodium 138 mmol/L (136-145)
--- NOTE | 2018-04-20 06:08 | PDOC.FM ---
- Subjective Subjective: This morning Ms Mcguire is doing well. Denies any pain, SOB, or concerns at this time. - Objective MAR Reviewed: Yes Vital Signs & Weight: Vital Signs (12 hours) Temp Pulse Resp BP Pulse Ox 04/20/18 04:00 99.2 F 87 18 141/81 H 92 L 04/20/18 00:27 98.9 F 90 16 148/68 H 93 L 04/19/18 21:42 79 12 04/19/18 20:46 98.8 F 92 16 141/63 H 90 L Weight Weight 71.214 kg I&O: 04/18/18 04/19/18 04/20/18 06:59 06:59 06:59 Intake Total 480 1200 1300 Output Total 800 2300 1800 Balance -320 -1100 -500 Result Diagrams: 04/20/18 03:45 04/20/18 03:45 <Greta Barbosa - Last Filed: 04/20/18 11:53> - Objective Vital Signs & Weight: Vital Signs (12 hours) Temp Pulse Pulse Pulse Resp BP BP 04/20/18 11:15 99.1 F 86 16 04/20/18 09:55 99 93 146/65 H 148/65 H 04/20/18 08:50 78 04/20/18 08:45 99.4 F 88 18 04/20/18 08:00 99.4 F 88 18 04/20/18 06:28 78 12 04/20/18 04:00 99.2 F 87 18 04/20/18 00:27 98.9 F 90 16 BP Pulse Ox Pulse Ox Pulse Ox 04/20/18 11:15 156/70 H 94 L 04/20/18 09:55 91 L 94 L 04/20/18 08:50 04/20/18 08:45 04/20/18 08:00 137/62 93 L 04/20/18 06:28 96 04/20/18 04:00 141/81 H 92 L 04/20/18 00:27 148/68 H 93 L Weight Weight 71.214 kg I&O: 04/19/18 04/20/18 04/21/18 06:59 06:59 06:59 Intake Total 1200 1300 Output Total 2300 1800 Balance -1100 -500 Result Diagrams: 04/20/18 03:45 04/20/18 03:45 <Lewis Torres - Last Filed: 04/20/18 12:23> Phys Exam - Physical Examination Constitutional: NAD HEENT: moist MMs Neck: full ROM Respiratory: clear to auscultation bilateral Cardiovascular: RRR Gastrointestinal: soft, non-tender, positive bowel sounds Musculoskeletal: pulses present, edema present Neurological: normal sensation, moves all 4 limbs Psychiatric: normal affect, A&O x 3 Skin: cap refill <2 seconds <Greta Barbosa - Last Filed: 04/20/18 11:53> Dx/Plan (1) Acute exacerbation of CHF (congestive heart failure) Code(s): I50.9 - HEART FAILURE, UNSPECIFIED Status: Acute QualifierTitle: Heart failure type: diastolic Qualified Code(s): I50.33 - Acute on chronic diastolic (congestive) heart failure (2) CAD (coronary artery disease) Code(s): I25.10 - ATHSCL HEART DISEASE OF [place] CORONARY ARTERY W/O ANG PCTRS Status: Acute (3) Hypertension Code(s): I10 - ESSENTIAL (PRIMARY) HYPERTENSION Status: Chronic QualifierTitle: Hypertension type: essential hypertension Qualified Code( s): I10 - Essential (primary) hypertension (4) Diabetes mellitus type 2 in nonobese Code(s): E11.9 - TYPE 2 DIABETES MELLITUS WITHOUT COMPLICATIONS Status: Chronic (5) YUMI (acute kidney injury) Code(s): N17.9 - ACUTE KIDNEY FAILURE, UNSPECIFIED Status: Acute (6) CKD (chronic kidney disease) Code(s): N18.9 - CHRONIC KIDNEY DISEASE, UNSPECIFIED Status: Acute QualifierTitle: Chronic kidney disease stage: stage 3 (moderate) Qualified Code(s): N18.3 - Chronic kidney disease, stage 3 (moderate) (7) Pleural effusion Code(s): J90 - PLEURAL EFFUSION, NOT ELSEWHERE CLASSIFIED Status: Acute (8) Vitamin D deficiency Code(s): E55.9 - VITAMIN D DEFICIENCY, UNSPECIFIED Status: Acute (9) Microcytic anemia Code(s): D50.9 - IRON DEFICIENCY ANEMIA, UNSPECIFIED Status: Chronic (10) Anemia, chronic disease Code(s): D63.8 - ANEMIA IN OTHER CHRONIC DISEASES CLASSIFIED ELSEWHERE Status : Acute - Plan Plan: Ms Mcguire is a 78yo female with pmh of DMII, chronic microcytic anemia, Vit D def, renal artery stenosis, L1 nontraumatic vertebral fracture presenting with new onset HFpER, HTN urgency, BL pleural effusions, YUMI on CKDIII. 1. New onset of congestive heart failure - Echo on 04/16 showed EF of 65-70% with evidence of diastolic dysfunction, increased R ventricular systolic function, & mild to moderate mitral regurgitation. - Nuclear Stress test was negative for any signs of ischemia - Cardiology on board. Will continue to follow recs. - Encourage good BP control as well as diet and exercise. - Duonebs PRN - Incentive spirometry & CXR 04/18: no acute cardiopulmonary process - Cont metoprolol - Await Cath results 2. Unstable Angina - Cath: notable for 90% occlusion of mid Cx, 50% of LAD, 90% of Right PDA, 50% RCA - Cards recommends medical management at this time - Plavix 75mg qd started 04/20 - Nitro PRN - Imdur 60mg started 04/19 - Metoprolol 50mg started 04/20 2. Hypertensive urgency - Renal Artery Stenosis on CT- held FAWAD and started nifedipine. Not a surgical candidate at this time - BP much better controlled at this time. Was in the 130s/60s over the course of yesterday. - Nifedipine BID stopped 04/19 - F/u outpatient - Was on Amlodipine prior to admission, she was experiencing LE swelling. With controlled pressures and no benefit in CHF, likely not restart. - Continue metoprolol 3. Diabetes mellitus type 2 in nonobese - Better control now since admission. Was 145 this AM which is WNL considering the patient's age (goal is between 120-180 to prevent hypoglycemia in elderly). - Metformin at 500mg PO QD stopped prior to cardiac cath - Would recommend d/c Metformin due to pts GFR (30-35) 4. Anemia of Chronic Disease - Appears to be anemia of chronic disease after reviewing Iron studies from last admission in January. - Has a low Hgb this visit around 9. - Iron studies normal last admission - CRP is WNL & ESR was slightly elevated at 45. Therefore concern for malignancy as a cause of her anemia is quite low. Likely 2/2 CKD. - Continue to monitor. 5. Hypokalemia - K of 3.8 this AM - Will continue to monitor with AM BMPs. 6. YUMI - Slight bump in Cr from 1.35-> 1.45 - Cont to monitor DVT ppx: Lovenox & SCDs Code Status: FULL Dispo: OT cleared to return home <Greta Barbosa - Last Filed: 04/20/18 11:53> Attending Addendum - Attending Addendum Date/Time: 04/20/18 1222 I personally evaluated the patient and discussed the management with Dr. Barbosa and Cole. I agree with and repeated the History, Examination, Assessment and Plan documented above with any addition or exceptions noted below. Pt with complete resolution of symptoms. No cp/sob. No n/v. No f/c. Cardiology has recommended medical management of her CAD. Will send home on appropriate regimen. Patient is in agreement and voices understanding of return precautions. <Lewis Torres - Last Filed: 04/20/18 12:23>
[2018-04-20] MEDS: guaiFENesin ER 600 MG TAB PO SCH (08:50)
[2018-04-20] MEDS ORDERED: Furosemide 20 MG TAB PO SCH (09:00)
[2018-04-20] MEDS ORDERED: Aspirin 81 mg Enteric Coated Tablet PO SCH (09:00)
[2018-04-20] MEDS ORDERED: Amlodipine 10 MG TAB PO SCH (09:00)
[2018-04-20] MEDS ORDERED: Clopidogrel Bisulfate 75 MG TAB PO SCH (09:00)
[2018-04-20 16:16] VITALS: BP 158/71; TEMP 99.3
[2018-04-20] MEDS ORDERED: Rosuvastatin 20 MG TAB PO SCH (21:00)
--- NOTE | 2018-04-21 01:32 | DIS ---
DATE OF ADMISSION: 04/16/2018 DATE OF DISCHARGE: 04/20/2018 RESIDENT: Greta Barbosa MD ADMITTING ATTENDING: Jia Corrigan M.D. DISCHARGE ATTENDING: Lewis Torres MD CONSULTATIONS: Cardiology, [place] Remy M.D. PROCEDURES: NM Stress, Cath (triple vessel disease), CTA (mild bilateral pleural effustions and air space opacities) PRIMARY DIAGNOSIS: 1. New onset heart failure with preserved ejection fraction 2. CAD 3. Hypertensive urgency 4. Bilateral pleural effusion 5. YUMI (resolved) SECONDARY DIAGNOSES: 1. Type 2 diabetes 2. Chronic microcytic anemia 3. Vitamin D deficiency 4. Renal artery stenosis 5. L1 nontraumatic vertebral fracture 6. Hypertension DISCHARGE MEDICATIONS: Amlodipine 10 mg daily Aspirin 81 mg daily Plavix 75 mg daily Lasix 20 mg daily Imdur 60 mg daily Metoprolol succinate 50mg at 2100 Nitro PRN Crestor 20 mg HS HISTORY OF PRESENT ILLNESS AND HOSPITAL COURSE: Ms. Mcguire is a 78-year-old female with a past medical history of type 2 diabetes and hypertension who presented to the emergency room with constant shortness of breath started 1 week ago 04/15/2018. She had previously sought care in the clinic with Dr. Solis and was given a tapered dose of prednisone and an albuterol inhaler. Symptoms did not improve, so she came into the emergency room on . At that time, she had nonproductive cough, orthopnea, bilateral leg swelling, but attributed this to the amlodipine she has been taking. She was found to be in hypertensive urgency with blood pressures 190s/100s. Cardiology was consulted for her new onset of congestive heart failure, an echo on 2017 showed an EF of 65%-70% with evidence of diastolic dysfunction, increased right ventricular systolic function and mild to moderate mitral regurgitation. A nuclear stress test was performed that showed no signs of ischemia. Cardiology was suspicious of CAD due to her continued shortness of breath and risk factors and pursued catheterization. Catheterization was notable for 90% occlusion of the mid circumflex, 50% of LAD 90% of right PDA, and 50% of RCA. Cardiology recommended medical management at this time and she was started on Plavix, Imdur and metoprolol and given a nitro patch as needed for unstable angina. During her hospitalization, she was diuresed with IV Lasix and her symptoms of shortness of breath and swelling improved. Her hypertension resolved with nifedipine. Metoprolol & amlodipine were held and ultimately restarted before discharge. She was also noted to have an elevated creatinine throughout her hospital stay. Looking back, she has had normal levels in the past, but mostly elevated. DISPOSITION: Stable. DISCHARGE INSTRUCTIONS: 1. Location: Home 2. Diet: She is going home on a diabetic heart healthy, low sodium diet with a 1500 mL fluid restriction. 3. Activity: There are no limitations on activity 4. F/U within a week with Dr. Solsi. Also f/u with [facility] and Dr. Remy. MARY
== END 2018-04-20 16:52 | disposition home or self-care (01) | DRG 286 ==
LOC: ERS 01:05 → 2NO 03:44
PROVIDERS: ADMIT Family Medicine; ATTEND Family Medicine
PROC: 4A023N7 Measurement of Cardiac Sampling and Pressure, Left Heart, Percutaneous Approach (ICD-10-PCS; principal; 2018-04-19)
PROC: B2111ZZ Fluoroscopy of Multiple Coronary Arteries using Low Osmolar Contrast (ICD-10-PCS; 2018-04-19)
PROC: B2151ZZ Fluoroscopy of Left Heart using Low Osmolar Contrast (ICD-10-PCS; 2018-04-19)
DX: I13.0 Hypertensive heart and chronic kidney disease with heart failure and stage 1 through stage 4 chronic kidney disease, or unspecified chronic kidney disease (principal); I50.33 Acute on chronic diastolic (congestive) heart failure; N17.9 Acute kidney failure, unspecified; J98.11 Atelectasis; K55.1 Chronic vascular disorders of intestine; N18.3 Chronic kidney disease, stage 3 (moderate); E11.22 Type 2 diabetes mellitus with diabetic chronic kidney disease; E55.9 Vitamin D deficiency, unspecified; D50.9 Iron deficiency anemia, unspecified; D63.1 Anemia in chronic kidney disease; I25.110 Atherosclerotic heart disease of native coronary artery with unstable angina pectoris; I34.0 Nonrheumatic mitral (valve) insufficiency; I16.0 Hypertensive urgency; I70.1 Atherosclerosis of renal artery; E87.6 Hypokalemia; Z87.891 Personal history of nicotine dependence; E66.9 Obesity, unspecified; Z68.29 Body mass index [BMI] 29.0-29.9, adult
CPT/HCPCS: 36415; 36416; 71046; 71275; 78452; 80048; 84484; 85025; 85652; 86140; 93005; 93017; 93306; 93458; 93798; 94640; 96374; 99152; 99153; A4216; A9500; C1769; G8978-GP-CJ; G8979-GP-CJ; G8980-GP-CJ; G8987-GO-CI; G8988-GO-CI; G8989-GO-CI; J0153; J1644; J1650; J1940; J2001; J2250; J7620; Q0162

== ENCOUNTER 2022-09-07 10:38 | Inpatient (IN) | payer MEDICARE ==
[2022-09-07] MEDS ORDERED: methylPREDNISolone Sod Succ/PF 125 MG/2 ML VIAL ONE (11:08)
[2022-09-07] MEDS ORDERED: Magnesium 2 GM/50 ML BAG (IN WATER) ONE (11:08)
[2022-09-07 11:12] LABS: Actual Bicarbonate (HCO3v) 24 mEq/L (22-28); Analyzer IN Cardio ER; Base Excess -2.1 mEq/L (-2.0 to +3.0); Calcium, Ionized (venous) 1.07 mmol/L (1.16-1.32); Chloride (VBG) 107 mmol/L (98-106); Hemoglobin (Hb) 11.5 g/dL (11.7-16.1); Potassium (VBG) 4.23 mmol/L (3.70-5.30); Sodium 139.6 mmol/L (133-146); pH (venous) 7.34 (7.32-7.43)
[2022-09-07 11:25] LABS: #Eosinphils 0.7 thou/uL (0.0-0.7); #Lymphocytes 1.5 thou/uL (1.20-3.40); #Monocytes 0.6 thou/uL (0.11-0.59); #Neutrophils 11.3 thou/uL (1.40-6.50); %Basophils 0.3 % (0.0-1.0); %Eosinophils 4.7 % (0.0-10.0); %Lymphocytes 10.4 % (21.0-51.0); %Monocytes 4.3 % (0.0-10.0); %Neutrophils 80.3 % (42.0-75.0); Hemoglobin 10.4 g/dL (12.0-16.0); Mean Corpuscular HGB CONC 30.4 g/dL (32.0-36.0); Mean Corpuscular Hemoglobin 25.3 pg (27.0-31.0); Mean Corpuscular Volume 83.3 fl (78.0-98.0); Mean Platelet Volume 9.3 fL (7.4-10.4); Platelet Count 290 10x3/uL (130-400); RBC Distribution Width 16.4 % (11.5-14.5); White Blood Cell (WBC) Count 14.1 10x3/uL (4.8-10.8)
[2022-09-07 11:44] LABS: ALT (SGPT) 15 U/L (8-55); AST (SGOT) 23 U/L (5-34); Albumin 3.6 g/dL (3.4-4.8); Alkaline Phosphatase 139 U/L (40-110); Anion Gap 12 mmol/L (10-20); BUN (Urea Nitrogen) 18 mg/dL (9.8-20.1); Bilirubin, Total 0.5 mg/dL (0.2-1.2); Calc. Creatinine Clearance 0 mL/min (70-130); Calcium 8.4 mg/dL (7.8-10.44); Carbon Dioxide 23 mmol/L (23-31); Chloride 110 mmol/L (98-107); Estimated GFR 43; Globulin 2.9 g/dL (2.4-3.5); Glucose 167 mg/dL (83-110); Potassium 4.3 mmol/L (3.5-5.1); Protein, Total 6.5 g/dL (5.8-8.1); Sodium 141 mmol/L (136-145)
[2022-09-07] MEDS ORDERED: Ondansetron PF 4 MG/2 ML Vial IVP PRN (13:32)
[2022-09-07] MEDS ORDERED: Acetaminophen 325 MG TAB PO PRN (13:32)
[2022-09-07] MEDS ORDERED: Ondansetron ODT 4 MG TAB PO PRN (13:32)
[2022-09-07] MEDS ORDERED: Dextrose 5% in Water 1,000 ML IV PRN (13:34)
[2022-09-07] MEDS ORDERED: Dextrose 50% Abboject 50 ML SYRINGE SLOW IVP PRN (13:34)
[2022-09-07 20:09] VITALS: BMI 26.2
[2022-09-07] MEDS: guaiFENesin ER 600 MG TAB PO SCH (22:00)
[2022-09-07] MEDS: methylPREDNISolone Sod Succ 40 MG VIAL IVP SCH ×2 (22:01→23:25)
[2022-09-07] MEDS: HumaLOG 300 UNITS/3 ML VIAL SC PRN (22:16)
[2022-09-08] MEDS ORDERED: hydrOXYzine Pamoate 25 mg Capsule PO SCH (01:45)
[2022-09-08] MEDS: methylPREDNISolone Sod Succ 40 MG VIAL IVP SCH ×2 (06:34→12:30)
[2022-09-08] MEDS: HumaLOG 300 UNITS/3 ML VIAL SC PRN ×4 (06:34→20:00)
[2022-09-08 07:30] LABS: #Lymphocytes 0.9 thou/uL (1.20-3.40); #Monocytes 0.1 thou/uL (0.11-0.59); #Neutrophils 7.8 thou/uL (1.40-6.50); %Basophils 0.4 % (0.0-1.0); %Eosinophils 0.1 % (0.0-10.0); %Lymphocytes 9.9 % (21.0-51.0); %Monocytes 1.6 % (0.0-10.0); Hemoglobin 9.5 g/dL (12.0-16.0); Mean Corpuscular HGB CONC 31.2 g/dL (32.0-36.0); Mean Corpuscular Hemoglobin 25.5 pg (27.0-31.0); Mean Corpuscular Volume 81.8 fl (78.0-98.0); Mean Platelet Volume 9.4 fL (7.4-10.4); Platelet Count 257 10x3/uL (130-400); RBC Distribution Width 16.2 % (11.5-14.5); Red Blood Cell (RBC) Count 3.72 mill/uL (4.20-5.40); White Blood Cell (WBC) Count 8.9 10x3/uL (4.8-10.8)
[2022-09-08 07:49] LABS: Anion Gap 10 mmol/L (10-20); BUN (Urea Nitrogen) 28 mg/dL (9.8-20.1); Calc. Creatinine Clearance 35 mL/min (70-130); Calcium 8.8 mg/dL (7.8-10.44); Carbon Dioxide 24 mmol/L (23-31); Chloride 108 mmol/L (98-107); Estimated GFR 36; Glucose 186 mg/dL (83-110); Potassium 4.5 mmol/L (3.5-5.1); Sodium 137 mmol/L (136-145)
[2022-09-08] MEDS: Clopidogrel Bisulfate 75 MG TAB PO SCH (08:41)
[2022-09-08] MEDS: guaiFENesin ER 600 MG TAB PO SCH ×2 (08:41→19:58)
[2022-09-08] MEDS ORDERED: predniSONE 20 MG TAB PO SCH (12:45)
[2022-09-08] MEDS ORDERED: Furosemide 20 MG TAB PO SCH (13:00)
[2022-09-08] MEDS: Rosuvastatin 20 MG TAB PO SCH (19:57)
[2022-09-09] MEDS: HumaLOG 300 UNITS/3 ML VIAL SC PRN ×3 (05:59→16:44)
[2022-09-09 06:18] LABS: #Lymphocytes 2.1 thou/uL (1.20-3.40); #Monocytes 0.7 thou/uL (0.11-0.59); #Neutrophils 9.8 thou/uL (1.40-6.50); %Basophils 0.1 % (0.0-1.0); %Eosinophils 0.2 % (0.0-10.0); %Lymphocytes 16.5 % (21.0-51.0); %Monocytes 5.7 % (0.0-10.0); %Neutrophils 77.4 % (42.0-75.0); Hemoglobin 8.7 g/dL (12.0-16.0); Mean Corpuscular HGB CONC 31.1 g/dL (32.0-36.0); Mean Corpuscular Hemoglobin 25.8 pg (27.0-31.0); Mean Corpuscular Volume 83.1 fl (78.0-98.0); Mean Platelet Volume 9.2 fL (7.4-10.4); Platelet Count 268 10x3/uL (130-400); RBC Distribution Width 16.6 % (11.5-14.5); Red Blood Cell (RBC) Count 3.35 mill/uL (4.20-5.40); White Blood Cell (WBC) Count 12.7 10x3/uL (4.8-10.8)
[2022-09-09 06:36] LABS: Anion Gap 12 mmol/L (10-20); BUN (Urea Nitrogen) 45 mg/dL (9.8-20.1); Calc. Creatinine Clearance 30 mL/min (70-130); Calcium 8.4 mg/dL (7.8-10.44); Carbon Dioxide 22 mmol/L (23-31); Chloride 112 mmol/L (98-107); Estimated GFR 31; Glucose 128 mg/dL (83-110); Potassium 4.3 mmol/L (3.5-5.1); Sodium 142 mmol/L (136-145)
[2022-09-09] MEDS: predniSONE 20 MG TAB PO SCH (08:36)
[2022-09-09] MEDS: Amlodipine 10 MG TAB PO SCH (08:36)
[2022-09-09] MEDS: guaiFENesin ER 600 MG TAB PO SCH ×2 (08:36→21:14)
[2022-09-09] MEDS: Clopidogrel Bisulfate 75 MG TAB PO SCH (08:36)
[2022-09-09] MEDS: Aspirin 81 mg Enteric Coated Tablet PO SCH (08:36)
[2022-09-09] MEDS ORDERED: Furosemide 20 MG/2 ML VIAL SLOW IVP SCH (11:00)
[2022-09-09 13:01] LABS: Bilirubin Negative (Negative); Blood, Urine Negative (Negative); Glucose, Urine (Dipstick) Negative (Negative); Ketone, Urine Negative (Negative); Leukocyte Trace (Negative); Nitrite Negative (Negative); Protein, Urine (Dipstick) Negative (Neg-Trace); Specific Gravity, Urine 1.015 (1.005-1.030); Urobilinogen 0.2 mg/dL (Less than 2); pH, Urine 5.5 (5.0-9.0)
[2022-09-09 13:03] LABS: Clarity Clear (Clear)
[2022-09-09 13:07] LABS: Bacteria/HPF None Seen HPF (None Seen); RBC/HPF 0-3 HPF (0-3); Squamous Epithelial 0-3 HPF (0-3); WBC/HPF 0-3 HPF (0-3)
[2022-09-09] MEDS: Rosuvastatin 20 MG TAB PO SCH (21:14)
[2022-09-10 07:03] LABS: #Basophils 0.1 thou/uL (0.0-0.2); #Lymphocytes 2.3 thou/uL (1.20-3.40); #Monocytes 0.8 thou/uL (0.11-0.59); %Basophils 0.6 % (0.0-1.0); %Eosinophils 0.2 % (0.0-10.0); %Monocytes 6.5 % (0.0-10.0); %Neutrophils 73.7 % (42.0-75.0); Hemoglobin 9.2 g/dL (12.0-16.0); Mean Corpuscular HGB CONC 31.3 g/dL (32.0-36.0); Mean Corpuscular Hemoglobin 25.6 pg (27.0-31.0); Mean Corpuscular Volume 81.9 fl (78.0-98.0); Mean Platelet Volume 9.1 fL (7.4-10.4); Platelet Count 289 10x3/uL (130-400); RBC Distribution Width 16.4 % (11.5-14.5); White Blood Cell (WBC) Count 12.2 10x3/uL (4.8-10.8)
[2022-09-10 07:30] LABS: Anion Gap 12 mmol/L (10-20); BUN (Urea Nitrogen) 61 mg/dL (9.8-20.1); Calc. Creatinine Clearance 26 mL/min (70-130); Calcium 8.3 mg/dL (7.8-10.44); Carbon Dioxide 24 mmol/L (23-31); Chloride 107 mmol/L (98-107); Estimated GFR 25; Glucose 149 mg/dL (83-110); Iron 14 ug/dL (50-170); Iron Binding Capacity, Total 270 mcg/dL (265-497); Potassium 4.1 mmol/L (3.5-5.1); Sodium 139 mmol/L (136-145)
[2022-09-10 07:51] LABS: Ferritin 43.35 ng/mL (10-291)
[2022-09-10] MEDS: predniSONE 20 MG TAB PO SCH (08:52)
[2022-09-10] MEDS: guaiFENesin ER 600 MG TAB PO SCH ×2 (08:53→22:00)
[2022-09-10] MEDS: Amlodipine 10 MG TAB PO SCH (08:53)
[2022-09-10] MEDS: Aspirin 81 mg Enteric Coated Tablet PO SCH (08:53)
[2022-09-10] MEDS: Clopidogrel Bisulfate 75 MG TAB PO SCH (08:53)
[2022-09-10] MEDS ORDERED: FLU VACC QS2022-23(65YR UP)/PF 240 MCG/0.7 ML SYRINGE IM ONE (09:00)
[2022-09-10] MEDS: HumaLOG 300 UNITS/3 ML VIAL SC PRN ×2 (12:00→17:11)
[2022-09-10] MEDS: Rosuvastatin 20 MG TAB PO SCH (21:59)
[2022-09-10] MEDS ORDERED: hydrOXYzine Pamoate 25 mg Capsule PO SCH (23:59)
[2022-09-11 06:52] LABS: #Eosinphils 0.1 thou/uL (0.0-0.7); #Lymphocytes 2.7 thou/uL (1.20-3.40); #Monocytes 0.9 thou/uL (0.11-0.59); #Neutrophils 7.9 thou/uL (1.40-6.50); %Basophils 0.2 % (0.0-1.0); %Eosinophils 0.5 % (0.0-10.0); %Lymphocytes 23.4 % (21.0-51.0); %Monocytes 7.4 % (0.0-10.0); %Neutrophils 68.5 % (42.0-75.0); Hemoglobin 8.9 g/dL (12.0-16.0); Mean Corpuscular HGB CONC 31.4 g/dL (32.0-36.0); Mean Corpuscular Hemoglobin 25.7 pg (27.0-31.0); Mean Corpuscular Volume 81.9 fl (78.0-98.0); Mean Platelet Volume 9.4 fL (7.4-10.4); Platelet Count 283 10x3/uL (130-400); RBC Distribution Width 16.4 % (11.5-14.5); Red Blood Cell (RBC) Count 3.48 mill/uL (4.20-5.40); White Blood Cell (WBC) Count 11.5 10x3/uL (4.8-10.8)
[2022-09-11 07:08] LABS: Anion Gap 10 mmol/L (10-20); BUN (Urea Nitrogen) 54 mg/dL (9.8-20.1); Calc. Creatinine Clearance 28 mL/min (70-130); Calcium 8.3 mg/dL (7.8-10.44); Carbon Dioxide 24 mmol/L (23-31); Chloride 109 mmol/L (98-107); Estimated GFR 28; Glucose 120 mg/dL (83-110); Potassium 4.4 mmol/L (3.5-5.1); Sodium 139 mmol/L (136-145)
[2022-09-11] MEDS: Clopidogrel Bisulfate 75 MG TAB PO SCH (08:54)
[2022-09-11] MEDS: predniSONE 20 MG TAB PO SCH (08:54)
[2022-09-11] MEDS: Aspirin 81 mg Enteric Coated Tablet PO SCH (08:54)
[2022-09-11] MEDS: Amlodipine 10 MG TAB PO SCH (08:54)
[2022-09-11] MEDS: guaiFENesin ER 600 MG TAB PO SCH ×2 (08:54→21:33)
[2022-09-11] MEDS: Folic Acid 1 MG TAB PO SCH (08:54)
[2022-09-11] MEDS: Ferrous Sulfate 325 MG TAB PO SCH (08:54)
[2022-09-11] MEDS: hydrALAZINE 25 MG TAB PO SCH ×2 (15:00→21:31)
[2022-09-11] MEDS: HumaLOG 300 UNITS/3 ML VIAL SC PRN (17:05)
[2022-09-11] MEDS: Rosuvastatin 20 MG TAB PO SCH (21:33)
[2022-09-12] MEDS ORDERED: hydrOXYzine Pamoate 25 mg Capsule PO SCH (00:45)
[2022-09-12 06:27] LABS: #Lymphocytes 2.4 thou/uL (1.20-3.40); #Monocytes 0.8 thou/uL (0.11-0.59); #Neutrophils 7.7 thou/uL (1.40-6.50); %Basophils 0.1 % (0.0-1.0); %Eosinophils 0.3 % (0.0-10.0); %Lymphocytes 21.9 % (21.0-51.0); %Monocytes 7.3 % (0.0-10.0); %Neutrophils 70.4 % (42.0-75.0); Hemoglobin 9.5 g/dL (12.0-16.0); Mean Corpuscular HGB CONC 31.3 g/dL (32.0-36.0); Mean Corpuscular Hemoglobin 25.4 pg (27.0-31.0); Mean Platelet Volume 9.5 fL (7.4-10.4); Platelet Count 300 10x3/uL (130-400); RBC Distribution Width 16.3 % (11.5-14.5); Red Blood Cell (RBC) Count 3.74 mill/uL (4.20-5.40); White Blood Cell (WBC) Count 10.9 10x3/uL (4.8-10.8)
[2022-09-12 06:47] LABS: Anion Gap 11 mmol/L (10-20); BUN (Urea Nitrogen) 56 mg/dL (9.8-20.1); Calc. Creatinine Clearance 29 mL/min (70-130); Calcium 8.4 mg/dL (7.8-10.44); Carbon Dioxide 22 mmol/L (23-31); Chloride 109 mmol/L (98-107); Estimated GFR 29; Glucose 100 mg/dL (83-110); Potassium 4.5 mmol/L (3.5-5.1); Sodium 137 mmol/L (136-145)
[2022-09-12] MEDS: Amlodipine 10 MG TAB PO SCH (08:43)
[2022-09-12] MEDS: Ferrous Sulfate 325 MG TAB PO SCH (08:44)
[2022-09-12] MEDS: hydrALAZINE 25 MG TAB PO SCH ×2 (08:44→14:30)
[2022-09-12] MEDS: Clopidogrel Bisulfate 75 MG TAB PO SCH (08:44)
[2022-09-12] MEDS: predniSONE 20 MG TAB PO SCH (08:44)
[2022-09-12] MEDS: guaiFENesin ER 600 MG TAB PO SCH (08:44)
[2022-09-12] MEDS: Aspirin 81 mg Enteric Coated Tablet PO SCH (08:44)
[2022-09-12] MEDS: Folic Acid 1 MG TAB PO SCH (08:45)
[2022-09-12] MEDS ORDERED: Heparin 5,000 UNITS/ML VIAL SC SCH (09:00)
[2022-09-12] MEDS ORDERED: FLU VACC QS2022-23(65YR UP)/PF 240 MCG/0.7 ML SYRINGE IM ONE (15:30)
[2022-09-12 16:02] VITALS: BP 160/51; TEMP 98.6
== END 2022-09-12 17:59 | disposition home or self-care (01) | DRG 193 ==
LOC: ERS 10:38 → T4-A 13:13
PROVIDERS: ADMIT Internal Medicine; ATTEND Family Medicine
DX: J18.9 Pneumonia, unspecified organism (principal); J96.01 Acute respiratory failure with hypoxia; J44.0 Chronic obstructive pulmonary disease with (acute) lower respiratory infection; J44.1 Chronic obstructive pulmonary disease with (acute) exacerbation; I13.0 Hypertensive heart and chronic kidney disease with heart failure and stage 1 through stage 4 chronic kidney disease, or unspecified chronic kidney disease; I50.32 Chronic diastolic (congestive) heart failure; N17.9 Acute kidney failure, unspecified; N18.9 Chronic kidney disease, unspecified; Z20.822 Contact with and (suspected) exposure to COVID-19; E27.8 Other specified disorders of adrenal gland; D63.1 Anemia in chronic kidney disease; E11.22 Type 2 diabetes mellitus with diabetic chronic kidney disease; E11.51 Type 2 diabetes mellitus with diabetic peripheral angiopathy without gangrene; D50.9 Iron deficiency anemia, unspecified; I25.10 Atherosclerotic heart disease of native coronary artery without angina pectoris; T50.2X5A Adverse effect of carbonic-anhydrase inhibitors, benzothiadiazides and other diuretics, initial encounter; I34.0 Nonrheumatic mitral (valve) insufficiency; Z88.0 Allergy status to penicillin; Z87.891 Personal history of nicotine dependence; Z79.899 Other long term (current) drug therapy; Z79.82 Long term (current) use of aspirin; Z79.02 Long term (current) use of antithrombotics/antiplatelets
CPT/HCPCS: 36415; 36416; 71045; 76770; 80048; 80053; 81001; 82274; 82607; 82728; 82805; 83540; 83550; 83605; 83880; 84484; 85025; 86850; 86900; 86901; 87040; 87633; 87798; 87804; 90471; 90662; 93005; 93306; 94640; 94660; 96365; 96366; 96375; G0008; J1644; J1815; J1940; J1956; J2920; J2930; J3475; J7512; J7620; Q0177; U0003; U0005

== ENCOUNTER 2022-09-22 16:58 | Emergency (ER) | payer MEDICARE ==
[~2022-09-22 16:58] MED LIST: Iopamidol-370 76% 500 ML 1 ML ONE
[2022-09-22 17:35] LABS: #Eosinphils 0.5 thou/uL (0.0-0.7); #Lymphocytes 1.7 thou/uL (1.20-3.40); #Monocytes 0.7 thou/uL (0.11-0.59); #Neutrophils 5.5 thou/uL (1.40-6.50); %Basophils 0.2 % (0.0-1.0); %Lymphocytes 20.1 % (21.0-51.0); %Monocytes 8.3 % (0.0-10.0); %Neutrophils 65.5 % (42.0-75.0); Hemoglobin 9.4 g/dL (12.0-16.0); Mean Corpuscular HGB CONC 31.3 g/dL (32.0-36.0); Mean Corpuscular Hemoglobin 25.5 pg (27.0-31.0); Mean Corpuscular Volume 81.7 fl (78.0-98.0); Mean Platelet Volume 8.8 fL (7.4-10.4); Platelet Count 311 10x3/uL (130-400); RBC Distribution Width 17.1 % (11.5-14.5); Red Blood Cell (RBC) Count 3.69 mill/uL (4.20-5.40); White Blood Cell (WBC) Count 8.4 10x3/uL (4.8-10.8)
[2022-09-22 18:02] LABS: ALT (SGPT) 10 U/L (8-55); AST (SGOT) 18 U/L (5-34); Albumin 3.6 g/dL (3.4-4.8); Alkaline Phosphatase 110 U/L (40-110); Anion Gap 13 mmol/L (10-20); BUN (Urea Nitrogen) 22 mg/dL (9.8-20.1); Bilirubin, Total 0.5 mg/dL (0.2-1.2); CK (CPK) 29 U/L (29-168); Calc. Creatinine Clearance 0 mL/min (70-130); Calcium 8.3 mg/dL (7.8-10.44); Carbon Dioxide 21 mmol/L (23-31); Chloride 109 mmol/L (98-107); Estimated GFR 33; Globulin 2.3 g/dL (2.4-3.5); Glucose 138 mg/dL (83-110); Lipase 21 U/L (8-78); Protein, Total 5.9 g/dL (5.8-8.1); Sodium 139 mmol/L (136-145)
[2022-09-22] MEDS ORDERED: Dexamethasone 10 MG/ML VIAL ONE (18:19)
[2022-09-22] MEDS ORDERED: LORazepam 2 MG/ML SYR.(CARPUJECT) ONE (18:19)
[2022-09-22] MEDS ORDERED: Magnesium 2 GM/50 ML BAG (IN WATER) ONE (18:19)
[2022-09-22 20:49] LABS: SARS-CoV-2 NAA Rapid Test Not Detected (NotDetected)
== END 2022-09-22 21:23 | disposition home or self-care (01) ==
LOC: ERS 16:58
DX: J44.1 Chronic obstructive pulmonary disease with (acute) exacerbation (principal); Z20.822 Contact with and (suspected) exposure to COVID-19; E11.9 Type 2 diabetes mellitus without complications; I11.0 Hypertensive heart disease with heart failure; I50.9 Heart failure, unspecified; Z87.891 Personal history of nicotine dependence
CPT/HCPCS: 0240U; 71045; 71275; 80053; 82550; 83690; 83880; 84484; 85025; 85379; 93005; 96365; 96375; 99285; J2060; 36415; J1100; J3475; Q9967

== ENCOUNTER 2022-10-04 21:40 | Inpatient (IN) | payer MEDICARE ==
[2022-10-04] MEDS ORDERED: cefTRIAXone\\ROCEPHIN 1 GM VIAL ONE (22:03)
[2022-10-04] MEDS ORDERED: Aspirin 325 MG TAB ONE (22:03)
[2022-10-04] MEDS ORDERED: Furosemide 20 MG/2 ML VIAL ONE (22:03)
[2022-10-04] MEDS ORDERED: Furosemide 40 MG/4 ML VIAL ONE (22:03)
[2022-10-04 22:33] LABS: ALT (SGPT) 13 U/L (8-55); AST (SGOT) 19 U/L (5-34); Albumin 3.6 g/dL (3.4-4.8); Alkaline Phosphatase 96 U/L (40-110); Anion Gap 16 mmol/L (10-20); BUN (Urea Nitrogen) 23 mg/dL (9.8-20.1); Bilirubin, Total 0.4 mg/dL (0.2-1.2); Calc. Creatinine Clearance 0 mL/min (70-130); Calcium 8.1 mg/dL (7.8-10.44); Carbon Dioxide 20 mmol/L (23-31); Chloride 111 mmol/L (98-107); Estimated GFR 35; Globulin 2.7 g/dL (2.4-3.5); Glucose 241 mg/dL (83-110); Lipase 35 U/L (8-78); Potassium 4.1 mmol/L (3.5-5.1); Protein, Total 6.3 g/dL (5.8-8.1); Sodium 143 mmol/L (136-145)
[2022-10-04] MEDS ORDERED: Azithromycin 500 MG VIAL ONE (23:01)
[2022-10-04 23:28] LABS: #Eosinphils 0.4 thou/uL (0.0-0.7); #Lymphocytes 1.7 thou/uL (1.20-3.40); #Monocytes 0.8 thou/uL (0.11-0.59); #Neutrophils 14.9 thou/uL (1.40-6.50); %Basophils 0.2 % (0.0-1.0); %Eosinophils 2.5 % (0.0-10.0); %Lymphocytes 9.7 % (21.0-51.0); %Monocytes 4.2 % (0.0-10.0); %Neutrophils 83.5 % (42.0-75.0); Hemoglobin 8.9 g/dL (12.0-16.0); Mean Corpuscular HGB CONC 32.2 g/dL (32.0-36.0); Mean Corpuscular Hemoglobin 26.5 pg (27.0-31.0); Mean Corpuscular Volume 82.3 fl (78.0-98.0); Mean Platelet Volume 8.7 fL (7.4-10.4); Platelet Count 338 10x3/uL (130-400); RBC Distribution Width 16.8 % (11.5-14.5); Red Blood Cell (RBC) Count 3.35 mill/uL (4.20-5.40); White Blood Cell (WBC) Count 17.9 10x3/uL (4.8-10.8)
[2022-10-04 23:32] LABS: SARS-CoV-2 NAA Rapid Test Not Detected (NotDetected)
[2022-10-04] MEDS ORDERED: Ondansetron PF 4 MG/2 ML Vial IVP PRN (23:54)
[2022-10-04] MEDS ORDERED: Acetaminophen 325 MG TAB PO PRN (23:54)
[2022-10-05] MEDS ORDERED: Dextrose 50% Abboject 50 ML SYRINGE SLOW IVP PRN (00:14)
[2022-10-05] MEDS ORDERED: Dextrose 5% in Water 1,000 ML IV PRN (00:14)
[2022-10-05 00:39] VITALS: BMI 24.2
[2022-10-05] MEDS ORDERED: VANCOMYCIN 1.25 GM/250 ML BAG 1.25 GM in Premix Bag 1 BAG IVPB SCH (01:00)
[2022-10-05] MEDS ORDERED: Vancomycin Dose by Levels Sliding Scale (Wt <71) FS SCH (01:00)
[2022-10-05 02:47] LABS: #Lymphocytes 0.7 thou/uL (1.20-3.40); #Monocytes 0.1 thou/uL (0.11-0.59); #Neutrophils 11.3 thou/uL (1.40-6.50); %Basophils 0.1 % (0.0-1.0); %Eosinophils 0.3 % (0.0-10.0); %Lymphocytes 5.6 % (21.0-51.0); %Monocytes 1.1 % (0.0-10.0); Hemoglobin 7.8 g/dL (12.0-16.0); Mean Corpuscular HGB CONC 31.6 g/dL (32.0-36.0); Mean Corpuscular Hemoglobin 25.5 pg (27.0-31.0); Mean Corpuscular Volume 80.9 fl (78.0-98.0); Mean Platelet Volume 8.9 fL (7.4-10.4); Platelet Count 273 10x3/uL (130-400); Red Blood Cell (RBC) Count 3.04 mill/uL (4.20-5.40); White Blood Cell (WBC) Count 12.2 10x3/uL (4.8-10.8)
[2022-10-05 03:14] LABS: Anion Gap 15 mmol/L (10-20); BUN (Urea Nitrogen) 24 mg/dL (9.8-20.1); Calc. Creatinine Clearance 32 mL/min (70-130); Calcium 8.1 mg/dL (7.8-10.44); Carbon Dioxide 20 mmol/L (23-31); Chloride 110 mmol/L (98-107); Estimated GFR 34; Glucose 226 mg/dL (83-110); Potassium 4.1 mmol/L (3.5-5.1); Sodium 141 mmol/L (136-145)
[2022-10-05] MEDS: Furosemide 40 MG/4 ML VIAL SLOW IVP SCH ×2 (06:22→13:24)
[2022-10-05] MEDS: HumaLOG 300 UNITS/3 ML VIAL SC PRN ×4 (06:26→21:09)
[2022-10-05] MEDS ORDERED: methylPREDNISolone Sod Succ 40 MG VIAL IVP SCH (07:00)
[2022-10-05] MEDS: Heparin 5,000 UNITS/ML VIAL SC SCH ×2 (08:34→21:09)
[2022-10-05] MEDS ORDERED: Cefepime 1 GM in Sodium Chloride 0.9% 100 ML IVPB SCH (09:00)
[2022-10-05] MEDS: methylPREDNISolone Sod Succ 40 MG VIAL IVP SCH ×2 (13:24→21:08)
[2022-10-05 13:30] LABS: Strep pneumo Urine Ag NEGATIVE (NEGATIVE)
[2022-10-05] MEDS: Mometasone 200 MCG/Formoterol 5 MCG 120 PUFF INHALER INH SCH (19:10)
[2022-10-06 00:22] LABS: Vancomycin, Random 11.5 ug/mL (See Comment)
[2022-10-06] MEDS ORDERED: Vancomycin HCl 500 MG in Sodium Chloride 0.9% 100 ML IV SCH (01:30)
[2022-10-06] MEDS ORDERED: Melatonin 3 MG TAB PO SCH (03:45)
[2022-10-06] MEDS: Furosemide 40 MG/4 ML VIAL SLOW IVP SCH ×2 (05:09→13:40)
[2022-10-06] MEDS: HumaLOG 300 UNITS/3 ML VIAL SC PRN ×4 (05:12→20:47)
[2022-10-06] MEDS: Mometasone 200 MCG/Formoterol 5 MCG 120 PUFF INHALER INH SCH ×2 (07:25→18:56)
[2022-10-06 07:40] LABS: #Lymphocytes 1.3 thou/uL (1.20-3.40); #Monocytes 0.6 thou/uL (0.11-0.59); #Neutrophils 10.8 thou/uL (1.40-6.50); %Basophils 0.2 % (0.0-1.0); %Eosinophils 0.1 % (0.0-10.0); %Lymphocytes 9.8 % (21.0-51.0); %Monocytes 4.7 % (0.0-10.0); %Neutrophils 85.3 % (42.0-75.0); Hemoglobin 7.9 g/dL (12.0-16.0); Mean Corpuscular HGB CONC 31.3 g/dL (32.0-36.0); Mean Corpuscular Hemoglobin 25.4 pg (27.0-31.0); Mean Corpuscular Volume 81.1 fl (78.0-98.0); Mean Platelet Volume 9.2 fL (7.4-10.4); Platelet Count 273 10x3/uL (130-400); RBC Distribution Width 17.1 % (11.5-14.5); Red Blood Cell (RBC) Count 3.12 mill/uL (4.20-5.40); White Blood Cell (WBC) Count 12.7 10x3/uL (4.8-10.8)
[2022-10-06 07:56] LABS: Anion Gap 15 mmol/L (10-20); BUN (Urea Nitrogen) 36 mg/dL (9.8-20.1); Calc. Creatinine Clearance 26 mL/min (70-130); Calcium 8.8 mg/dL (7.8-10.44); Carbon Dioxide 24 mmol/L (23-31); Chloride 103 mmol/L (98-107); Estimated GFR 28; Glucose 240 mg/dL (83-110); Potassium 4.1 mmol/L (3.5-5.1); Sodium 138 mmol/L (136-145)
[2022-10-06] MEDS: predniSONE 20 MG TAB PO SCH (09:46)
[2022-10-06] MEDS: Heparin 5,000 UNITS/ML VIAL SC SCH ×2 (09:48→20:47)
[2022-10-06] MEDS: Cefepime 1 GM in Sodium Chloride 0.9% 100 ML IVPB SCH (09:48)
[2022-10-07 01:03] LABS: Vancomycin, Random 12.6 ug/mL (See Comment)
[2022-10-07] MEDS ORDERED: Vancomycin HCl 500 MG in Sodium Chloride 0.9% 100 ML IV SCH (01:30)
[2022-10-07 07:08] LABS: Anion Gap 14 mmol/L (10-20); BUN (Urea Nitrogen) 46 mg/dL (9.8-20.1); Calc. Creatinine Clearance 27 mL/min (70-130); Calcium 8.6 mg/dL (7.8-10.44); Carbon Dioxide 26 mmol/L (23-31); Chloride 103 mmol/L (98-107); Estimated GFR 29; Glucose 174 mg/dL (83-110); Sodium 139 mmol/L (136-145)
[2022-10-07 07:09] LABS: #Lymphocytes 2.4 thou/uL (1.20-3.40); #Monocytes 0.8 thou/uL (0.11-0.59); #Neutrophils 12.4 thou/uL (1.40-6.50); %Basophils 0.1 % (0.0-1.0); %Eosinophils 0.2 % (0.0-10.0); %Lymphocytes 15.3 % (21.0-51.0); %Monocytes 5.2 % (0.0-10.0); %Neutrophils 79.1 % (42.0-75.0); Hemoglobin 8.6 g/dL (12.0-16.0); Mean Corpuscular Hemoglobin 25.3 pg (27.0-31.0); Mean Corpuscular Volume 81.5 fl (78.0-98.0); Mean Platelet Volume 9.2 fL (7.4-10.4); Platelet Count 272 10x3/uL (130-400); RBC Distribution Width 17.4 % (11.5-14.5); Red Blood Cell (RBC) Count 3.39 mill/uL (4.20-5.40); White Blood Cell (WBC) Count 15.6 10x3/uL (4.8-10.8)
[2022-10-07] MEDS: Mometasone 200 MCG/Formoterol 5 MCG 120 PUFF INHALER INH SCH ×2 (07:10→19:16)
[2022-10-07] MEDS: Heparin 5,000 UNITS/ML VIAL SC SCH ×2 (08:40→20:01)
[2022-10-07] MEDS: Cefepime 1 GM in Sodium Chloride 0.9% 100 ML IVPB SCH (08:40)
[2022-10-07] MEDS: predniSONE 20 MG TAB PO SCH (08:41)
[2022-10-07] MEDS ORDERED: Furosemide 40 MG/4 ML VIAL SLOW IVP SCH ×2 (12:00)
[2022-10-07] MEDS: Azithromycin 250 MG TAB PO SCH (12:58)
[2022-10-07] MEDS: HumaLOG 300 UNITS/3 ML VIAL SC PRN ×2 (12:59→17:50)
[2022-10-08 00:27] LABS: Vancomycin, Random 13.9 ug/mL (See Comment)
[2022-10-08 07:20] LABS: #Eosinphils 0.1 thou/uL (0.0-0.7); #Lymphocytes 2.3 thou/uL (1.20-3.40); #Monocytes 0.8 thou/uL (0.11-0.59); #Neutrophils 7.8 thou/uL (1.40-6.50); %Basophils 0.4 % (0.0-1.0); %Eosinophils 0.6 % (0.0-10.0); %Lymphocytes 20.9 % (21.0-51.0); %Neutrophils 71.2 % (42.0-75.0); Hemoglobin 7.8 g/dL (12.0-16.0); Mean Corpuscular HGB CONC 30.8 g/dL (32.0-36.0); Mean Corpuscular Hemoglobin 25.1 pg (27.0-31.0); Mean Corpuscular Volume 81.4 fl (78.0-98.0); Mean Platelet Volume 9.3 fL (7.4-10.4); Platelet Count 246 10x3/uL (130-400); Red Blood Cell (RBC) Count 3.13 mill/uL (4.20-5.40); White Blood Cell (WBC) Count 10.9 10x3/uL (4.8-10.8)
[2022-10-08] MEDS: Mometasone 200 MCG/Formoterol 5 MCG 120 PUFF INHALER INH SCH ×2 (07:29→18:33)
[2022-10-08 07:40] LABS: Anion Gap 14 mmol/L (10-20); BUN (Urea Nitrogen) 45 mg/dL (9.8-20.1); Calc. Creatinine Clearance 29 mL/min (70-130); Calcium 8.7 mg/dL (7.8-10.44); Carbon Dioxide 27 mmol/L (23-31); Chloride 103 mmol/L (98-107); Estimated GFR 32; Glucose 123 mg/dL (83-110); Potassium 4.2 mmol/L (3.5-5.1); Sodium 140 mmol/L (136-145)
[2022-10-08] MEDS: cefTRIAXone\\ROCEPHIN 2 GM in Sodium Chloride 0.9% 100 ML IVPB SCH (08:41)
[2022-10-08] MEDS: Heparin 5,000 UNITS/ML VIAL SC SCH ×2 (08:42→20:07)
[2022-10-08] MEDS: predniSONE 20 MG TAB PO SCH (08:42)
[2022-10-08] MEDS ORDERED: Furosemide 40 MG/4 ML VIAL SLOW IVP SCH (09:00)
[2022-10-08] MEDS: Azithromycin 250 MG TAB PO SCH (12:54)
[2022-10-08] MEDS: HumaLOG 300 UNITS/3 ML VIAL SC PRN ×3 (12:56→20:07)
[2022-10-08] MEDS: Furosemide 40 MG/4 ML VIAL SLOW IVP SCH (16:07)
[2022-10-08 23:08] LABS: Mycoplasma pneumoniae IgG AB Less than 100 U/mL (0-99); Mycoplasma pneumoniae IgM AB Less than 770 U/mL (0-769)
[2022-10-09] MEDS: Furosemide 40 MG/4 ML VIAL SLOW IVP SCH (05:22)
[2022-10-09 06:31] LABS: #Lymphocytes 2.6 thou/uL (1.20-3.40); #Monocytes 0.8 thou/uL (0.11-0.59); #Neutrophils 9.3 thou/uL (1.40-6.50); %Eosinophils 0.3 % (0.0-10.0); %Lymphocytes 20.4 % (21.0-51.0); %Monocytes 6.3 % (0.0-10.0); %Neutrophils 72.8 % (42.0-75.0); Hemoglobin 8.3 g/dL (12.0-16.0); Mean Corpuscular Hemoglobin 25.1 pg (27.0-31.0); Mean Platelet Volume 9.3 fL (7.4-10.4); Platelet Count 283 10x3/uL (130-400); RBC Distribution Width 16.6 % (11.5-14.5); Red Blood Cell (RBC) Count 3.31 mill/uL (4.20-5.40); White Blood Cell (WBC) Count 12.8 10x3/uL (4.8-10.8)
[2022-10-09 06:47] LABS: Anion Gap 13 mmol/L (10-20); BUN (Urea Nitrogen) 49 mg/dL (9.8-20.1); Calc. Creatinine Clearance 26 mL/min (70-130); Calcium 8.6 mg/dL (7.8-10.44); Carbon Dioxide 29 mmol/L (23-31); Chloride 98 mmol/L (98-107); Estimated GFR 27; Glucose 139 mg/dL (83-110); Potassium 3.9 mmol/L (3.5-5.1); Sodium 136 mmol/L (136-145)
[2022-10-09] MEDS: Mometasone 200 MCG/Formoterol 5 MCG 120 PUFF INHALER INH SCH ×2 (08:56→18:43)
[2022-10-09] MEDS: cefTRIAXone\\ROCEPHIN 2 GM in Sodium Chloride 0.9% 100 ML IVPB SCH (09:48)
[2022-10-09] MEDS: predniSONE 20 MG TAB PO SCH (09:48)
[2022-10-09] MEDS: Heparin 5,000 UNITS/ML VIAL SC SCH ×2 (09:49→21:37)
[2022-10-09] MEDS ORDERED: Furosemide 20 MG TAB PO SCH (12:15)
[2022-10-09] MEDS: Azithromycin 250 MG TAB PO SCH (13:38)
[2022-10-09] MEDS: HumaLOG 300 UNITS/3 ML VIAL SC PRN ×2 (18:31→21:38)
[2022-10-09 21:37] LABS: L.pneumophilia Abs <0.91 OD ratio (0.00-0.90)
[2022-10-10] MEDS: Mometasone 200 MCG/Formoterol 5 MCG 120 PUFF INHALER INH SCH ×2 (06:55→19:30)
[2022-10-10 07:15] LABS: #Eosinphils 0.1 thou/uL (0.0-0.7); #Lymphocytes 2.5 thou/uL (1.20-3.40); #Monocytes 0.6 thou/uL (0.11-0.59); #Neutrophils 8.4 thou/uL (1.40-6.50); %Eosinophils 0.7 % (0.0-10.0); %Lymphocytes 21.2 % (21.0-51.0); %Monocytes 5.5 % (0.0-10.0); %Neutrophils 72.6 % (42.0-75.0); Hemoglobin 8.1 g/dL (12.0-16.0); Mean Corpuscular HGB CONC 30.7 g/dL (32.0-36.0); Mean Corpuscular Hemoglobin 24.9 pg (27.0-31.0); Mean Platelet Volume 9.6 fL (7.4-10.4); Platelet Count 274 10x3/uL (130-400); RBC Distribution Width 16.6 % (11.5-14.5); Red Blood Cell (RBC) Count 3.27 mill/uL (4.20-5.40); White Blood Cell (WBC) Count 11.6 10x3/uL (4.8-10.8)
[2022-10-10 07:43] LABS: Anion Gap 13 mmol/L (10-20); BUN (Urea Nitrogen) 57 mg/dL (9.8-20.1); Calc. Creatinine Clearance 27 mL/min (70-130); Calcium 8.6 mg/dL (7.8-10.44); Carbon Dioxide 29 mmol/L (23-31); Chloride 98 mmol/L (98-107); Estimated GFR 29; Glucose 156 mg/dL (83-110); Sodium 136 mmol/L (136-145)
[2022-10-10] MEDS ORDERED: Furosemide 20 MG TAB PO SCH (09:00)
[2022-10-10] MEDS: cefTRIAXone\\ROCEPHIN 2 GM in Sodium Chloride 0.9% 100 ML IVPB SCH (09:24)
[2022-10-10] MEDS: Heparin 5,000 UNITS/ML VIAL SC SCH ×2 (09:25→22:28)
[2022-10-10] MEDS ORDERED: Lorazepam 2 MG/ML VIAL SLOW IVP SCH ×2 (15:45→16:00)
[2022-10-10] MEDS: HumaLOG 300 UNITS/3 ML VIAL SC PRN (16:41)
[2022-10-10 16:45] LABS: Actual Bicarbonate (HCO3a) 33.6 mEq/L (22-28); Base Excess (BEa) 10.6 mEq/L (-2.0 to +3.0); CO2 Tension 38.8 mmHg (35.0-45.0); Calcium, Ionized (arterial) 1.04 mmol/L (1.12-1.30); Carboxyhemoglobin (COHb) 0.2 gm% (0.0-3.0); Hemoglobin (Hb) 9.7 g/dL (12.0-16.0); Potassium - ABG Lab 4.04 mmol/L (3.70-5.30); pH, Arterial 7.56 (7.35-7.45)
[2022-10-10 16:47] LABS: O2 Tension (PaO2), arterial 42.9 mmHg (> 60.0); Puncture Site RRA
[2022-10-10] MEDS ORDERED: Lactated Ringer's 500 ML IV SCH (20:00)
[2022-10-10] MEDS ORDERED: Lactated Ringer's 1,000 ML IV SCH (20:00)
[2022-10-10 22:11] LABS: Actual Bicarbonate (HCO3a) 30.6 mEq/L (22-28); Base Excess (BEa) 6.5 mEq/L (-2.0 to +3.0); CO2 Tension 42.1 mmHg (35.0-45.0); Calcium, Ionized (arterial) 1.06 mmol/L (1.12-1.30); Carboxyhemoglobin (COHb) 0.3 gm% (0.0-3.0); Hemoglobin (Hb) 9.5 g/dL (12.0-16.0); O2 Tension (PaO2), arterial 75.7 mmHg (> 60.0); Potassium - ABG Lab 4.26 mmol/L (3.70-5.30); pH, Arterial 7.48 (7.35-7.45)
[2022-10-10 22:15] LABS: ALV-art Gradient 156.875 mmHg (0-20); Puncture Site RBA
[2022-10-10] MEDS ORDERED: Furosemide 20 MG/2 ML VIAL SLOW IVP SCH (23:45)
[2022-10-11 06:32] LABS: #Basophils 0.1 thou/uL (0.0-0.2); #Eosinphils 0.2 thou/uL (0.0-0.7); #Monocytes 0.8 thou/uL (0.11-0.59); #Neutrophils 9.5 thou/uL (1.40-6.50); %Basophils 0.4 % (0.0-1.0); %Eosinophils 1.8 % (0.0-10.0); %Lymphocytes 16.2 % (21.0-51.0); %Neutrophils 75.5 % (42.0-75.0); Hemoglobin 9.1 g/dL (12.0-16.0); Mean Corpuscular HGB CONC 31.1 g/dL (32.0-36.0); Mean Corpuscular Hemoglobin 24.9 pg (27.0-31.0); Mean Corpuscular Volume 80.2 fl (78.0-98.0); Mean Platelet Volume 9.4 fL (7.4-10.4); Platelet Count 287 10x3/uL (130-400); RBC Distribution Width 16.8 % (11.5-14.5); Red Blood Cell (RBC) Count 3.64 mill/uL (4.20-5.40); White Blood Cell (WBC) Count 12.6 10x3/uL (4.8-10.8)
[2022-10-11 06:54] LABS: Anion Gap 15 mmol/L (10-20); BUN (Urea Nitrogen) 53 mg/dL (9.8-20.1); Calc. Creatinine Clearance 27 mL/min (70-130); Calcium 8.7 mg/dL (7.8-10.44); Carbon Dioxide 27 mmol/L (23-31); Chloride 100 mmol/L (98-107); Estimated GFR 31; Glucose 143 mg/dL (83-110); Potassium 4.1 mmol/L (3.5-5.1); Sodium 138 mmol/L (136-145)
[2022-10-11] MEDS: Mometasone 200 MCG/Formoterol 5 MCG 120 PUFF INHALER INH SCH ×2 (06:55→19:06)
[2022-10-11] MEDS: cefTRIAXone\\ROCEPHIN 2 GM in Sodium Chloride 0.9% 100 ML IVPB SCH (09:07)
[2022-10-11] MEDS: Heparin 5,000 UNITS/ML VIAL SC SCH ×2 (09:08→21:24)
[2022-10-11] MEDS: HumaLOG 300 UNITS/3 ML VIAL SC PRN (16:47)
[2022-10-11 19:38] LABS: QuantiFERON-TB Gold Plus Indeterminate (Negative)
[2022-10-12 07:07] LABS: #Basophils 0.1 thou/uL (0.0-0.2); #Eosinphils 0.4 thou/uL (0.0-0.7); #Lymphocytes 1.9 thou/uL (1.20-3.40); #Monocytes 0.6 thou/uL (0.11-0.59); #Neutrophils 7.2 thou/uL (1.40-6.50); %Basophils 1.1 % (0.0-1.0); %Eosinophils 4.3 % (0.0-10.0); %Lymphocytes 18.3 % (21.0-51.0); %Monocytes 5.8 % (0.0-10.0); %Neutrophils 70.4 % (42.0-75.0); Hemoglobin 8.2 g/dL (12.0-16.0); Mean Corpuscular HGB CONC 30.5 g/dL (32.0-36.0); Mean Corpuscular Hemoglobin 24.8 pg (27.0-31.0); Mean Corpuscular Volume 81.1 fl (78.0-98.0); Mean Platelet Volume 9.6 fL (7.4-10.4); Platelet Count 236 10x3/uL (130-400); RBC Distribution Width 16.5 % (11.5-14.5); Red Blood Cell (RBC) Count 3.32 mill/uL (4.20-5.40); White Blood Cell (WBC) Count 10.2 10x3/uL (4.8-10.8)
[2022-10-12 07:56] LABS: Anion Gap 16 mmol/L (10-20); BUN (Urea Nitrogen) 46 mg/dL (9.8-20.1); Calc. Creatinine Clearance 29 mL/min (70-130); Calcium 8.2 mg/dL (7.8-10.44); Carbon Dioxide 22 mmol/L (23-31); Chloride 102 mmol/L (98-107); Estimated GFR 33; Glucose 146 mg/dL (83-110); Potassium 3.9 mmol/L (3.5-5.1); Sodium 136 mmol/L (136-145)
[2022-10-12] MEDS: Heparin 5,000 UNITS/ML VIAL SC SCH ×2 (08:51→21:58)
[2022-10-12] MEDS: cefTRIAXone\\ROCEPHIN 2 GM in Sodium Chloride 0.9% 100 ML IVPB SCH (08:51)
[2022-10-12] MEDS: Mometasone 200 MCG/Formoterol 5 MCG 120 PUFF INHALER INH SCH ×2 (09:54→20:09)
[2022-10-12] MEDS ORDERED: Albuterol Sulfate 1.25 MG/3 ML NEB NEB PRN (10:13)
[2022-10-12] MEDS ORDERED: Ipratropium Bromide 2.5 ml Neb NEB PRN (10:13)
[2022-10-12] MEDS ORDERED: Acetaminophen 325 MG TAB PO PRN (10:15)
[2022-10-12] MEDS: HumaLOG 300 UNITS/3 ML VIAL SC PRN (13:11)
[2022-10-12] MEDS: Icosapent Ethyl 1 GM CAPSULE PO SCH (17:19)
[2022-10-12] MEDS ORDERED: Rosuvastatin 10 MG TAB PO SCH (21:00)
[2022-10-12] MEDS ORDERED: Rosuvastatin 20 MG TAB PO SCH (21:00)
[2022-10-12] MEDS: NIFEdipine XL 60 MG TAB PO SCH (21:56)
[2022-10-13 06:31] LABS: #Eosinphils 0.5 thou/uL (0.0-0.7); #Lymphocytes 1.5 thou/uL (1.20-3.40); #Monocytes 0.6 thou/uL (0.11-0.59); #Neutrophils 8.5 thou/uL (1.40-6.50); %Basophils 0.3 % (0.0-1.0); %Eosinophils 4.8 % (0.0-10.0); %Lymphocytes 13.6 % (21.0-51.0); %Neutrophils 76.3 % (42.0-75.0); Hemoglobin 7.8 g/dL (12.0-16.0); Mean Corpuscular HGB CONC 30.9 g/dL (32.0-36.0); Mean Corpuscular Hemoglobin 24.8 pg (27.0-31.0); Mean Corpuscular Volume 80.5 fl (78.0-98.0); Mean Platelet Volume 9.5 fL (7.4-10.4); Platelet Count 280 10x3/uL (130-400); RBC Distribution Width 16.1 % (11.5-14.5); Red Blood Cell (RBC) Count 3.15 mill/uL (4.20-5.40); White Blood Cell (WBC) Count 11.1 10x3/uL (4.8-10.8)
[2022-10-13 06:52] LABS: Anion Gap 15 mmol/L (10-20); BUN (Urea Nitrogen) 45 mg/dL (9.8-20.1); Calc. Creatinine Clearance 25 mL/min (70-130); Calcium 8.6 mg/dL (7.8-10.44); Carbon Dioxide 24 mmol/L (23-31); Chloride 101 mmol/L (98-107); Estimated GFR 27; Glucose 187 mg/dL (83-110); Potassium 4.6 mmol/L (3.5-5.1); Sodium 135 mmol/L (136-145)
[2022-10-13] MEDS: Mometasone 200 MCG/Formoterol 5 MCG 120 PUFF INHALER INH SCH ×2 (07:44→18:52)
[2022-10-13] MEDS ORDERED: metFORMIN 500 MG TAB PO SCH (08:00)
[2022-10-13 08:17] VITALS: BP 119/61; TEMP 98.4
[2022-10-13] MEDS ORDERED: Cholecalciferol 1,000 UNITS (25 MCG) TAB PO SCH (09:00)
[2022-10-13] MEDS ORDERED: Aspirin 81 mg Enteric Coated Tablet PO SCH (09:00)
[2022-10-13] MEDS: NIFEdipine XL 60 MG TAB PO SCH (09:02)
[2022-10-13] MEDS: Icosapent Ethyl 1 GM CAPSULE PO SCH ×2 (09:02→18:08)
[2022-10-13] MEDS: Heparin 5,000 UNITS/ML VIAL SC SCH (09:02)
[2022-10-13] MEDS ORDERED: Loratadine 10 MG TAB PO SCH (16:45)
[2022-10-14] MEDS ORDERED: Loratadine 10 MG TAB PO SCH (09:00)
== END 2022-10-13 20:45 | disposition home health service (06) | DRG 193 ==
LOC: ERS 21:40 → IMCU/EMU 23:25 → T4-A 10-05 15:11 → IMCU/EMU 10-10 21:56 → T4-B 10-11 17:02
PROVIDERS: ADMIT Student in an Organized Health Care Education/Training Program; ATTEND Internal Medicine
PROC: 5A09357 Assistance with Respiratory Ventilation, Less than 24 Consecutive Hours, Continuous Positive Airway Pressure (ICD-10-PCS; principal; 2022-10-05)
DX: J18.9 Pneumonia, unspecified organism (principal); Z20.822 Contact with and (suspected) exposure to COVID-19; J96.01 Acute respiratory failure with hypoxia; I13.0 Hypertensive heart and chronic kidney disease with heart failure and stage 1 through stage 4 chronic kidney disease, or unspecified chronic kidney disease; J44.1 Chronic obstructive pulmonary disease with (acute) exacerbation; R04.2 Hemoptysis; J44.0 Chronic obstructive pulmonary disease with (acute) lower respiratory infection; E87.3 Alkalosis; E11.51 Type 2 diabetes mellitus with diabetic peripheral angiopathy without gangrene; E11.22 Type 2 diabetes mellitus with diabetic chronic kidney disease; I25.10 Atherosclerotic heart disease of native coronary artery without angina pectoris; N18.30 Chronic kidney disease, stage 3 unspecified; I08.1 Rheumatic disorders of both mitral and tricuspid valves; D50.9 Iron deficiency anemia, unspecified; Y95 Nosocomial condition; Z88.0 Allergy status to penicillin; Z79.899 Other long term (current) drug therapy; Z79.82 Long term (current) use of aspirin; Z79.02 Long term (current) use of antithrombotics/antiplatelets; Z95.828 Presence of other vascular implants and grafts; Z87.891 Personal history of nicotine dependence; Z99.89 Dependence on other enabling machines and devices
CPT/HCPCS: 36415; 36416; 36600; 71045; 74230; 80048; 80053; 80202; 82805; 83690; 83880; 84484; 85025; 86480; 86713; 87040; 87070; 87081; 87205; 87449; 93005; 93010; 93306; 93970; 94640; 94660; 94664; 96365; 96367; 96375; J0456; J0692; J0696; J1644; J1815; J1940; J2060; J2920; J3370; J3490; J7120; J7512; J7620

== ENCOUNTER 2022-10-21 02:59 | Inpatient (IN) | payer MEDICARE ==
[2022-10-21] MEDS ORDERED: Magnesium 2 GM/50 ML BAG (IN WATER) ONE (03:29)
[2022-10-21] MEDS ORDERED: Cefepime 2 GM VIAL ONE (03:35)
[2022-10-21 03:55] LABS: #Basophils 0.1 thou/uL (0.0-0.2); #Eosinphils 0.3 thou/uL (0.0-0.7); #Lymphocytes 1.6 thou/uL (1.20-3.40); #Monocytes 0.8 thou/uL (0.11-0.59); #Neutrophils 12.4 thou/uL (1.40-6.50); %Basophils 0.5 % (0.0-1.0); %Eosinophils 2.2 % (0.0-10.0); %Lymphocytes 10.4 % (21.0-51.0); Hemoglobin 7.2 g/dL (12.0-16.0); Mean Corpuscular HGB CONC 30.3 g/dL (32.0-36.0); Mean Corpuscular Hemoglobin 24.2 pg (27.0-31.0); Mean Corpuscular Volume 79.8 fl (78.0-98.0); Mean Platelet Volume 8.3 fL (7.4-10.4); Platelet Count 411 10x3/uL (130-400); RBC Distribution Width 16.8 % (11.5-14.5); Red Blood Cell (RBC) Count 2.96 mill/uL (4.20-5.40); White Blood Cell (WBC) Count 15.2 10x3/uL (4.8-10.8)
[2022-10-21] MEDS ORDERED: Ipratropium/Albuterol 3 ML NEB ONE (03:55)
[2022-10-21 04:16] LABS: ALT (SGPT) 13 U/L (8-55); AST (SGOT) 18 U/L (5-34); Albumin 3.5 g/dL (3.4-4.8); Alkaline Phosphatase 82 U/L (40-110); Anion Gap 13 mmol/L (10-20); BUN (Urea Nitrogen) 31 mg/dL (9.8-20.1); Bilirubin, Total 0.6 mg/dL (0.2-1.2); Calc. Creatinine Clearance 0 mL/min (70-130); Calcium 8.6 mg/dL (7.8-10.44); Carbon Dioxide 22 mmol/L (23-31); Chloride 109 mmol/L (98-107); Estimated GFR 33; Globulin 2.9 g/dL (2.4-3.5); Glucose 165 mg/dL (83-110); Potassium 3.7 mmol/L (3.5-5.1); Protein, Total 6.4 g/dL (5.8-8.1); Sodium 140 mmol/L (136-145)
[2022-10-21 04:37] LABS: CKMB 1.6 ng/mL (0-6.6)
[2022-10-21] MEDS ORDERED: Furosemide 40 MG/4 ML VIAL ONE (04:51)
[2022-10-21 05:37] LABS: SARS-CoV-2 NAA Rapid Test Not Detected (NotDetected)
[2022-10-21 07:29] LABS: Troponin I 0.051 ng/mL (< 0.028)
[2022-10-21 07:31] LABS: Bilirubin Negative (Negative); Blood, Urine Negative (Negative); Clarity Clear (Clear); Glucose, Urine (Dipstick) Normal (Negative); Ketone, Urine Negative (Negative); Leukocyte Negative Leu/uL (Negative); Nitrite Negative (Negative); Protein, Urine (Dipstick) 10 mg/dL (Neg-Trace); Urobilinogen Normal mg/dL (Less than 2)
[2022-10-21 07:40] VITALS: BMI 25.4
[2022-10-21] MEDS ORDERED: Acetaminophen 325 MG TAB PO PRN (09:00)
[2022-10-21] MEDS ORDERED: Furosemide 40 MG/4 ML VIAL SLOW IVP SCH (09:00)
[2022-10-21] MEDS ORDERED: Electrolyte Replacement Protocol 1 EACH FS SCH (09:15)
[2022-10-21] MEDS ORDERED: Electrolyte Replacement Protocol FS PRN (09:30)
[2022-10-21] MEDS ORDERED: Albuterol 200 PUFF (6.7GM INHALER) INH PRN (09:48)
[2022-10-21] MEDS ORDERED: hydrALAZINE 20 MG/ML VIAL SLOW IVP PRN (09:59)
[2022-10-21] MEDS ORDERED: Dextrose 5% in Water 1,000 ML IV PRN (10:02)
[2022-10-21] MEDS ORDERED: Insulin Regular 300 UNITS/3 ML VIAL SC PRN (10:02)
[2022-10-21] MEDS ORDERED: Dextrose 50% Abboject 50 ML SYRINGE SLOW IVP PRN (10:02)
[2022-10-21 10:16] LABS: Troponin I 0.046 ng/mL (< 0.028)
[2022-10-21] MEDS: Insulin Regular 300 UNITS/3 ML VIAL SC PRN (12:04)
[2022-10-21] MEDS ORDERED: VANCOMYCIN 1.25 GM/250 ML BAG 1.25 GM in Premix Bag 1 BAG IVPB SCH (12:45)
[2022-10-21] MEDS: Cefepime 1 GM in Sodium Chloride 0.9% 100 ML IVPB SCH (13:30)
[2022-10-21] MEDS ORDERED: Empagliflozin 10 MG TAB PO SCH (16:15)
[2022-10-21] MEDS: Icosapent Ethyl 1 GM CAPSULE PO SCH (17:20)
[2022-10-21] MEDS ORDERED: NIFEdipine XL 60 MG TAB PO SCH (21:00)
[2022-10-21] MEDS ORDERED: Vancomycin 1 GM in Premix Bag 1 BAG IVPB SCH (21:00)
[2022-10-21] MEDS ORDERED: Non-Formulary Item 1 EACH (Nifedipine [Nifedipine Er] 60 MG Tab.Er.24) PO SCH (21:00)
[2022-10-21] MEDS: Rosuvastatin 20 MG TAB PO SCH (21:10)
[2022-10-21] MEDS: Carvedilol 6.25 MG TAB PO SCH (21:10)
[2022-10-22 04:55] LABS: Reticulocyte Count 2.5 % (0.5-1.5)
[2022-10-22 05:04] LABS: #Basophils 0.1 thou/uL (0.0-0.2); #Eosinphils 0.1 thou/uL (0.0-0.7); #Lymphocytes 1.4 thou/uL (1.20-3.40); #Monocytes 0.7 thou/uL (0.11-0.59); #Neutrophils 6.4 thou/uL (1.40-6.50); %Basophils 0.7 % (0.0-1.0); %Eosinophils 1.5 % (0.0-10.0); %Lymphocytes 15.8 % (21.0-51.0); %Monocytes 8.1 % (0.0-10.0); Hemoglobin 6.5 g/dL (12.0-16.0); Mean Corpuscular HGB CONC 30.4 g/dL (32.0-36.0); Mean Corpuscular Hemoglobin 24.3 pg (27.0-31.0); Mean Corpuscular Volume 80.1 fl (78.0-98.0); Mean Platelet Volume 8.5 fL (7.4-10.4); Platelet Count 367 10x3/uL (130-400); RBC Distribution Width 16.6 % (11.5-14.5); Red Blood Cell (RBC) Count 2.67 mill/uL (4.20-5.40); White Blood Cell (WBC) Count 8.7 10x3/uL (4.8-10.8)
[2022-10-22 05:19] LABS: Iron 13 ug/dL (50-170); Iron Binding Capacity, Total 244 mcg/dL (265-497)
[2022-10-22 05:22] LABS: ALT (SGPT) 7 U/L (8-55); AST (SGOT) 16 U/L (5-34); Albumin 3.3 g/dL (3.4-4.8); Alkaline Phosphatase 75 U/L (40-110); Anion Gap 15 mmol/L (10-20); BUN (Urea Nitrogen) 36 mg/dL (9.8-20.1); Bilirubin, Total 0.7 mg/dL (0.2-1.2); Calc. Creatinine Clearance 25 mL/min (70-130); Calcium 8.4 mg/dL (7.8-10.44); Carbon Dioxide 20 mmol/L (23-31); Chloride 107 mmol/L (98-107); Estimated GFR 26; Globulin 2.6 g/dL (2.4-3.5); Glucose 158 mg/dL (83-110); Iron 13 ug/dL (50-170); Iron Binding Capacity, Total 254 mcg/dL (265-497); Potassium 3.7 mmol/L (3.5-5.1); Protein, Total 5.9 g/dL (5.8-8.1); Sodium 138 mmol/L (136-145)
[2022-10-22] MEDS: Insulin Regular 300 UNITS/3 ML VIAL SC PRN (06:49)
[2022-10-22] MEDS ORDERED: Furosemide 20 MG/2 ML VIAL SLOW IVP SCH ×2 (08:45→22:30)
[2022-10-22] MEDS ORDERED: Furosemide 20 MG TAB PO SCH (09:00)
[2022-10-22] MEDS ORDERED: Aspirin 81 mg Enteric Coated Tablet PO SCH (09:00)
[2022-10-22] MEDS: Icosapent Ethyl 1 GM CAPSULE PO SCH ×2 (09:46→17:59)
[2022-10-22] MEDS: Carvedilol 6.25 MG TAB PO SCH ×2 (09:48→20:34)
[2022-10-22] MEDS: Cholecalciferol 1,000 UNITS (25 MCG) TAB PO SCH (09:51)
[2022-10-22] MEDS: Empagliflozin 10 MG TAB PO SCH (09:53)
[2022-10-22 12:44] LABS: Vancomycin, Random 14.6 ug/mL (See Comment)
[2022-10-22] MEDS ORDERED: Vancomycin HCl 500 MG in Sodium Chloride 0.9% 100 ML IV SCH (13:30)
[2022-10-22] MEDS ORDERED: Furosemide 40 MG/4 ML VIAL SLOW IVP SCH (14:00)
[2022-10-22] MEDS: Cefepime 1 GM in Sodium Chloride 0.9% 100 ML IVPB SCH (15:19)
[2022-10-22] MEDS: Rosuvastatin 20 MG TAB PO SCH (20:35)
[2022-10-23 01:23] LABS: Hemoglobin 10.2 g/dL (12.0-16.0); Platelet Count 306 10x3/uL (130-400)
[2022-10-23 05:18] LABS: #Eosinphils 0.4 thou/uL (0.0-0.7); #Lymphocytes 1.7 thou/uL (1.20-3.40); #Monocytes 0.6 thou/uL (0.11-0.59); #Neutrophils 7.2 thou/uL (1.40-6.50); %Basophils 0.4 % (0.0-1.0); %Eosinophils 3.6 % (0.0-10.0); %Lymphocytes 17.2 % (21.0-51.0); %Monocytes 6.3 % (0.0-10.0); %Neutrophils 72.5 % (42.0-75.0); Hemoglobin 10.1 g/dL (12.0-16.0); Mean Corpuscular HGB CONC 33.5 g/dL (32.0-36.0); Mean Corpuscular Hemoglobin 27.3 pg (27.0-31.0); Mean Corpuscular Volume 81.5 fl (78.0-98.0); Mean Platelet Volume 8.3 fL (7.4-10.4); Platelet Count 334 10x3/uL (130-400); RBC Distribution Width 16.8 % (11.5-14.5); Red Blood Cell (RBC) Count 3.72 mill/uL (4.20-5.40); White Blood Cell (WBC) Count 9.9 10x3/uL (4.8-10.8)
[2022-10-23 05:50] LABS: ALT (SGPT) 10 U/L (8-55); AST (SGOT) 18 U/L (5-34); Albumin 3.5 g/dL (3.4-4.8); Alkaline Phosphatase 84 U/L (40-110); Anion Gap 13 mmol/L (10-20); BUN (Urea Nitrogen) 42 mg/dL (9.8-20.1); Bilirubin, Total 1.4 mg/dL (0.2-1.2); Calc. Creatinine Clearance 22 mL/min (70-130); Calcium 8.6 mg/dL (7.8-10.44); Carbon Dioxide 25 mmol/L (23-31); Chloride 104 mmol/L (98-107); Estimated GFR 23; Globulin 2.8 g/dL (2.4-3.5); Glucose 132 mg/dL (83-110); Potassium 3.5 mmol/L (3.5-5.1); Protein, Total 6.3 g/dL (5.8-8.1); Sodium 138 mmol/L (136-145)
[2022-10-23] MEDS ORDERED: Furosemide 40 MG/4 ML VIAL SLOW IVP SCH (08:00)
[2022-10-23] MEDS ORDERED: Potassium Chloride 20 MEQ TAB PO SCH (08:00)
[2022-10-23] MEDS: Icosapent Ethyl 1 GM CAPSULE PO SCH ×2 (08:52→18:47)
[2022-10-23] MEDS: Carvedilol 6.25 MG TAB PO SCH ×2 (08:53→19:48)
[2022-10-23] MEDS: Empagliflozin 10 MG TAB PO SCH (08:54)
[2022-10-23] MEDS: NIFEdipine XL 60 MG TAB PO SCH ×2 (08:54→19:48)
[2022-10-23] MEDS: Cholecalciferol 1,000 UNITS (25 MCG) TAB PO SCH (10:42)
[2022-10-23] MEDS: Cefepime 1 GM in Sodium Chloride 0.9% 100 ML IVPB SCH (12:38)
[2022-10-23] MEDS ORDERED: Vancomycin HCl 250 MG, Admixture Fee 1 EACH in Sodium Chloride 0.9% 100 ML IVPB SCH (14:00)
[2022-10-23] MEDS: Rosuvastatin 20 MG TAB PO SCH (19:49)
[2022-10-23] MEDS: Melatonin 3 MG TAB PO SCH (19:50)
[2022-10-24 04:06] LABS: #Eosinphils 0.4 thou/uL (0.0-0.7); #Lymphocytes 1.6 thou/uL (1.20-3.40); #Monocytes 0.8 thou/uL (0.11-0.59); #Neutrophils 7.6 thou/uL (1.40-6.50); %Basophils 0.4 % (0.0-1.0); %Eosinophils 3.4 % (0.0-10.0); %Neutrophils 73.1 % (42.0-75.0); Hemoglobin 10.1 g/dL (12.0-16.0); Mean Corpuscular HGB CONC 32.2 g/dL (32.0-36.0); Mean Corpuscular Hemoglobin 26.6 pg (27.0-31.0); Mean Corpuscular Volume 82.4 fl (78.0-98.0); Mean Platelet Volume 8.5 fL (7.4-10.4); Platelet Count 331 10x3/uL (130-400); RBC Distribution Width 17.6 % (11.5-14.5); Red Blood Cell (RBC) Count 3.81 mill/uL (4.20-5.40); White Blood Cell (WBC) Count 10.4 10x3/uL (4.8-10.8)
[2022-10-24 04:48] LABS: ALT (SGPT) 10 U/L (8-55); AST (SGOT) 18 U/L (5-34); Albumin 3.4 g/dL (3.4-4.8); Alkaline Phosphatase 88 U/L (40-110); Anion Gap 12 mmol/L (10-20); BUN (Urea Nitrogen) 40 mg/dL (9.8-20.1); Bilirubin, Total 0.9 mg/dL (0.2-1.2); Calc. Creatinine Clearance 23 mL/min (70-130); Carbon Dioxide 25 mmol/L (23-31); Chloride 104 mmol/L (98-107); Estimated GFR 24; Globulin 2.8 g/dL (2.4-3.5); Glucose 131 mg/dL (83-110); Potassium 4.4 mmol/L (3.5-5.1); Protein, Total 6.2 g/dL (5.8-8.1); Sodium 137 mmol/L (136-145)
[2022-10-24] MEDS ORDERED: Furosemide 20 MG TAB PO SCH (09:00)
[2022-10-24] MEDS: Icosapent Ethyl 1 GM CAPSULE PO SCH ×2 (11:20→16:53)
[2022-10-24] MEDS: NIFEdipine XL 60 MG TAB PO SCH ×2 (11:22→20:14)
[2022-10-24] MEDS: Cholecalciferol 1,000 UNITS (25 MCG) TAB PO SCH (11:22)
[2022-10-24] MEDS: Furosemide 40 MG TAB PO SCH (11:23)
[2022-10-24] MEDS: Empagliflozin 10 MG TAB PO SCH (11:23)
[2022-10-24] MEDS: Carvedilol 6.25 MG TAB PO SCH ×2 (11:23→20:14)
[2022-10-24] MEDS ORDERED: GoLYTELY 4,000 ml Bottle PO SCH (17:00)
[2022-10-24] MEDS: Rosuvastatin 20 MG TAB PO SCH (20:14)
[2022-10-24] MEDS: Melatonin 3 MG TAB PO SCH (20:15)
[2022-10-25 07:50] LABS: #Eosinphils 0.3 thou/uL (0.0-0.7); #Lymphocytes 1.4 thou/uL (1.20-3.40); #Monocytes 0.7 thou/uL (0.11-0.59); #Neutrophils 7.4 thou/uL (1.40-6.50); %Basophils 0.3 % (0.0-1.0); %Eosinophils 3.2 % (0.0-10.0); %Lymphocytes 13.8 % (21.0-51.0); %Monocytes 6.6 % (0.0-10.0); %Neutrophils 76.1 % (42.0-75.0); Hemoglobin 10.8 g/dL (12.0-16.0); Mean Corpuscular HGB CONC 32.5 g/dL (32.0-36.0); Mean Corpuscular Hemoglobin 26.7 pg (27.0-31.0); Mean Corpuscular Volume 82.2 fl (78.0-98.0); Mean Platelet Volume 8.6 fL (7.4-10.4); Platelet Count 332 10x3/uL (130-400); RBC Distribution Width 18.3 % (11.5-14.5); Red Blood Cell (RBC) Count 4.04 mill/uL (4.20-5.40); White Blood Cell (WBC) Count 9.8 10x3/uL (4.8-10.8)
[2022-10-25 08:05] LABS: Anion Gap 17 mmol/L (10-20); BUN (Urea Nitrogen) 35 mg/dL (9.8-20.1); Calc. Creatinine Clearance 22 mL/min (70-130); Calcium 8.9 mg/dL (7.8-10.44); Carbon Dioxide 25 mmol/L (23-31); Chloride 100 mmol/L (98-107); Estimated GFR 24; Glucose 114 mg/dL (83-110); Potassium 4.3 mmol/L (3.5-5.1); Sodium 138 mmol/L (136-145)
[2022-10-25] MEDS ORDERED: PROPOFOL 200 MG/20 ML VIAL ONE (09:26)
[2022-10-25] MEDS: Icosapent Ethyl 1 GM CAPSULE PO SCH ×2 (10:47→16:37)
[2022-10-25] MEDS: NIFEdipine XL 60 MG TAB PO SCH ×2 (10:47→20:57)
[2022-10-25] MEDS: Carvedilol 6.25 MG TAB PO SCH ×2 (10:48→20:57)
[2022-10-25] MEDS: Empagliflozin 10 MG TAB PO SCH (10:48)
[2022-10-25] MEDS: Furosemide 40 MG TAB PO SCH (10:48)
[2022-10-25] MEDS: Cholecalciferol 1,000 UNITS (25 MCG) TAB PO SCH (10:48)
[2022-10-25] MEDS: Melatonin 3 MG TAB PO SCH (20:56)
[2022-10-25] MEDS: Rosuvastatin 20 MG TAB PO SCH (20:57)
[2022-10-26 04:40] LABS: #Eosinphils 0.3 thou/uL (0.0-0.7); #Lymphocytes 1.4 thou/uL (1.20-3.40); #Monocytes 0.7 thou/uL (0.11-0.59); #Neutrophils 7.6 thou/uL (1.40-6.50); %Basophils 0.3 % (0.0-1.0); %Eosinophils 2.9 % (0.0-10.0); %Lymphocytes 13.5 % (21.0-51.0); %Monocytes 7.1 % (0.0-10.0); %Neutrophils 76.2 % (42.0-75.0); Hemoglobin 10.3 g/dL (12.0-16.0); Mean Corpuscular HGB CONC 32.6 g/dL (32.0-36.0); Mean Corpuscular Volume 82.7 fl (78.0-98.0); Mean Platelet Volume 8.6 fL (7.4-10.4); Platelet Count 352 10x3/uL (130-400); RBC Distribution Width 18.2 % (11.5-14.5); Red Blood Cell (RBC) Count 3.83 mill/uL (4.20-5.40)
[2022-10-26 04:52] LABS: Anion Gap 15 mmol/L (10-20); BUN (Urea Nitrogen) 40 mg/dL (9.8-20.1); Calc. Creatinine Clearance 22 mL/min (70-130); Calcium 8.7 mg/dL (7.8-10.44); Carbon Dioxide 25 mmol/L (23-31); Chloride 102 mmol/L (98-107); Estimated GFR 23; Glucose 150 mg/dL (83-110); Sodium 138 mmol/L (136-145)
[2022-10-26] MEDS: Icosapent Ethyl 1 GM CAPSULE PO SCH ×2 (09:09→16:07)
[2022-10-26] MEDS: Cholecalciferol 1,000 UNITS (25 MCG) TAB PO SCH (09:09)
[2022-10-26] MEDS: Furosemide 40 MG TAB PO SCH (09:10)
[2022-10-26] MEDS: Carvedilol 6.25 MG TAB PO SCH ×2 (09:10→20:44)
[2022-10-26] MEDS: Empagliflozin 10 MG TAB PO SCH (09:10)
[2022-10-26] MEDS: NIFEdipine XL 60 MG TAB PO SCH ×2 (09:10→20:44)
[2022-10-26] MEDS: Rosuvastatin 20 MG TAB PO SCH (20:43)
[2022-10-26] MEDS: Melatonin 3 MG TAB PO SCH (20:44)
[2022-10-27 07:44] LABS: #Eosinphils 0.4 thou/uL (0.0-0.7); #Lymphocytes 1.5 thou/uL (1.20-3.40); #Monocytes 0.6 thou/uL (0.11-0.59); #Neutrophils 4.8 thou/uL (1.40-6.50); %Basophils 0.6 % (0.0-1.0); %Eosinophils 5.9 % (0.0-10.0); %Lymphocytes 19.8 % (21.0-51.0); %Monocytes 8.4 % (0.0-10.0); %Neutrophils 65.3 % (42.0-75.0); Hemoglobin 9.9 g/dL (12.0-16.0); Mean Corpuscular Hemoglobin 27.1 pg (27.0-31.0); Mean Corpuscular Volume 84.6 fl (78.0-98.0); Mean Platelet Volume 8.6 fL (7.4-10.4); Platelet Count 334 10x3/uL (130-400); RBC Distribution Width 18.1 % (11.5-14.5); Red Blood Cell (RBC) Count 3.64 mill/uL (4.20-5.40); White Blood Cell (WBC) Count 7.3 10x3/uL (4.8-10.8)
[2022-10-27 08:03] LABS: ALT (SGPT) 9 U/L (8-55); AST (SGOT) 17 U/L (5-34); Albumin 3.2 g/dL (3.4-4.8); Alkaline Phosphatase 94 U/L (40-110); Anion Gap 14 mmol/L (10-20); BUN (Urea Nitrogen) 48 mg/dL (9.8-20.1); Bilirubin, Total 0.5 mg/dL (0.2-1.2); Calc. Creatinine Clearance 20 mL/min (70-130); Calcium 8.5 mg/dL (7.8-10.44); Carbon Dioxide 27 mmol/L (23-31); Chloride 104 mmol/L (98-107); Estimated GFR 20; Glucose 139 mg/dL (83-110); Potassium 4.1 mmol/L (3.5-5.1); Protein, Total 6.2 g/dL (5.8-8.1); Sodium 141 mmol/L (136-145)
[2022-10-27] MEDS: Carvedilol 6.25 MG TAB PO SCH ×2 (10:15→21:03)
[2022-10-27] MEDS: Aspirin 81 mg Enteric Coated Tablet PO SCH (10:15)
[2022-10-27] MEDS: Cholecalciferol 1,000 UNITS (25 MCG) TAB PO SCH (10:16)
[2022-10-27] MEDS: Heparin 5,000 UNITS/ML VIAL SC SCH ×3 (10:16→21:03)
[2022-10-27] MEDS: Furosemide 40 MG TAB PO SCH (10:16)
[2022-10-27] MEDS: NIFEdipine XL 60 MG TAB PO SCH ×2 (10:17→21:02)
[2022-10-27] MEDS: Ferrous Gluconate 324 MG TAB PO SCH (12:03)
[2022-10-27] MEDS: Icosapent Ethyl 1 GM CAPSULE PO SCH ×2 (12:03→16:54)
[2022-10-27] MEDS ORDERED: Polyethylene Glycol 3350 17 GM Packet PO PRN (12:48)
[2022-10-27] MEDS ORDERED: Polyethylene Glycol 3350 17 GM Packet PO SCH (13:00)
[2022-10-27] MEDS: Empagliflozin 10 MG TAB PO SCH (14:20)
[2022-10-27] MEDS: Rosuvastatin 20 MG TAB PO SCH (21:03)
[2022-10-27] MEDS: Melatonin 3 MG TAB PO SCH (21:03)
[2022-10-28] MEDS ORDERED: Ergocalciferol 1.25 MG(50,000 UNITS) CAP PO SCH (09:00)
[2022-10-28] MEDS: Icosapent Ethyl 1 GM CAPSULE PO SCH ×2 (10:23→18:42)
[2022-10-28] MEDS: Heparin 5,000 UNITS/ML VIAL SC SCH ×3 (10:23→20:44)
[2022-10-28] MEDS: Carvedilol 6.25 MG TAB PO SCH ×2 (10:23→20:43)
[2022-10-28] MEDS: Cholecalciferol 1,000 UNITS (25 MCG) TAB PO SCH (10:24)
[2022-10-28] MEDS: Aspirin 81 mg Enteric Coated Tablet PO SCH (10:25)
[2022-10-28] MEDS: Furosemide 40 MG TAB PO SCH (10:25)
[2022-10-28 10:48] LABS: ALT (SGPT) 12 U/L (8-55); AST (SGOT) 19 U/L (5-34); Albumin 3.6 g/dL (3.4-4.8); Alkaline Phosphatase 95 U/L (40-110); Anion Gap 14 mmol/L (10-20); BUN (Urea Nitrogen) 46 mg/dL (9.8-20.1); Bilirubin, Total 0.7 mg/dL (0.2-1.2); Calc. Creatinine Clearance 21 mL/min (70-130); Calcium 9.2 mg/dL (7.8-10.44); Carbon Dioxide 27 mmol/L (23-31); Chloride 102 mmol/L (98-107); Estimated GFR 22; Globulin 3.4 g/dL (2.4-3.5); Glucose 131 mg/dL (83-110); Potassium 3.9 mmol/L (3.5-5.1); Sodium 139 mmol/L (136-145)
[2022-10-28] MEDS: Ferrous Gluconate 324 MG TAB PO SCH (12:05)
[2022-10-28] MEDS: NIFEdipine XL 60 MG TAB PO SCH ×2 (12:06→20:46)
[2022-10-28] MEDS: Melatonin 3 MG TAB PO SCH (20:45)
[2022-10-28] MEDS: Rosuvastatin 20 MG TAB PO SCH (20:45)
[2022-10-29 05:26] LABS: Anion Gap 13 mmol/L (10-20); BUN (Urea Nitrogen) 41 mg/dL (9.8-20.1); Calc. Creatinine Clearance 25 mL/min (70-130); Calcium 8.8 mg/dL (7.8-10.44); Carbon Dioxide 27 mmol/L (23-31); Chloride 104 mmol/L (98-107); Estimated GFR 27; Glucose 119 mg/dL (83-110); Potassium 3.5 mmol/L (3.5-5.1); Sodium 140 mmol/L (136-145)
[2022-10-29] MEDS: NIFEdipine XL 60 MG TAB PO SCH (08:57)
[2022-10-29] MEDS: Icosapent Ethyl 1 GM CAPSULE PO SCH ×2 (08:57→17:22)
[2022-10-29] MEDS: Aspirin 81 mg Enteric Coated Tablet PO SCH (08:58)
[2022-10-29] MEDS: Heparin 5,000 UNITS/ML VIAL SC SCH ×2 (08:58→14:07)
[2022-10-29] MEDS: Carvedilol 6.25 MG TAB PO SCH (08:58)
[2022-10-29] MEDS: Furosemide 40 MG TAB PO SCH (08:58)
[2022-10-29] MEDS: Cholecalciferol 1,000 UNITS (25 MCG) TAB PO SCH (08:59)
[2022-10-29] MEDS: Ferrous Gluconate 324 MG TAB PO SCH (14:07)
[2022-10-29 16:39] VITALS: BP 159/70; TEMP 98
== END 2022-10-29 19:40 | disposition home health service (06) | DRG 291 ==
LOC: ERS 02:59 → ERHOLD 04:46 → CCU 08:08 → 2NO 17:32
PROVIDERS: ADMIT Student in an Organized Health Care Education/Training Program; ATTEND Student in an Organized Health Care Education/Training Program
PROC: 30233N1 Transfusion of Nonautologous Red Blood Cells into Peripheral Vein, Percutaneous Approach (ICD-10-PCS; principal; 2022-10-22)
PROC: 0DB78ZX Excision of Stomach, Pylorus, Via Natural or Artificial Opening Endoscopic, Diagnostic (ICD-10-PCS; 2022-10-25)
PROC: 0DBK8ZZ Excision of Ascending Colon, Via Natural or Artificial Opening Endoscopic (ICD-10-PCS; 2022-10-25)
PROC: 0DBM8ZZ Excision of Descending Colon, Via Natural or Artificial Opening Endoscopic (ICD-10-PCS; 2022-10-25)
DX: I13.0 Hypertensive heart and chronic kidney disease with heart failure and stage 1 through stage 4 chronic kidney disease, or unspecified chronic kidney disease (principal); I50.33 Acute on chronic diastolic (congestive) heart failure; J96.01 Acute respiratory failure with hypoxia; N17.9 Acute kidney failure, unspecified; N25.81 Secondary hyperparathyroidism of renal origin; J44.9 Chronic obstructive pulmonary disease, unspecified; Z20.822 Contact with and (suspected) exposure to COVID-19; I25.10 Atherosclerotic heart disease of native coronary artery without angina pectoris; E11.51 Type 2 diabetes mellitus with diabetic peripheral angiopathy without gangrene; D50.9 Iron deficiency anemia, unspecified; E11.22 Type 2 diabetes mellitus with diabetic chronic kidney disease; E80.6 Other disorders of bilirubin metabolism; K31.7 Polyp of stomach and duodenum; K63.5 Polyp of colon; D63.1 Anemia in chronic kidney disease; N18.30 Chronic kidney disease, stage 3 unspecified; K57.30 Diverticulosis of large intestine without perforation or abscess without bleeding; Z87.891 Personal history of nicotine dependence; Z88.0 Allergy status to penicillin; Z79.82 Long term (current) use of aspirin; Z79.84 Long term (current) use of oral hypoglycemic drugs; Z88.1 Allergy status to other antibiotic agents; Z79.899 Other long term (current) drug therapy; Z79.51 Long term (current) use of inhaled steroids
CPT/HCPCS: 36415; 36416; 36430; 71045; 80048; 80053; 80202; 81003; 82248; 82553; 82728; 83540; 83550; 83605; 83880; 84145; 84484; 85025; 85046; 86850; 86870; 86900; 86901; 86922; 87040; 87086; 87811; 88305; 88342; 93005; 94640; 94644; 94660; 94760; 96365; 96375; J0692; J1644; J1650; J1815; J1940; J2704; J3370; J3475; J3490; J7611; J7620; P9016; U0002

== ENCOUNTER 2024-03-04 13:20 | Emergency (ER) | payer MEDICARE ==
[2024-03-04] MEDS ORDERED: Acetaminophen 325 MG TAB ONE (16:19)
== END 2024-03-04 16:30 | disposition home or self-care (01) ==
LOC: ERS 13:20
DX: S09.90XA Unspecified injury of head, initial encounter (principal); S00.03XA Contusion of scalp, initial encounter; S80.02XA Contusion of left knee, initial encounter; S80.01XA Contusion of right knee, initial encounter; I11.0 Hypertensive heart disease with heart failure; I50.9 Heart failure, unspecified; E11.9 Type 2 diabetes mellitus without complications; J44.9 Chronic obstructive pulmonary disease, unspecified; W18.09XA Striking against other object with subsequent fall, initial encounter; Y92.009 Unspecified place in unspecified non-institutional (private) residence as the place of occurrence of the external cause; Z87.891 Personal history of nicotine dependence; Z95.1 Presence of aortocoronary bypass graft
CPT/HCPCS: 70450

== ENCOUNTER 2024-03-22 09:23 | Inpatient (IN) | payer MEDICARE ==
[2024-03-22 10:29] LABS: #Basophils 0.07 10x3/uL (0.0-0.2); %Basophils 0.8 % (0.0-1.0); %Eosinophils 3.9 % (0.0-10.0); %Lymphocytes 9.2 % (21.0-51.0); %Monocytes 7.8 % (0.0-10.0); %Neutrophils 78.1 % (42.0-75.0); Hemoglobin 10.4 g/dL (12.0-16.0); Mean Corpuscular HGB CONC 31.5 g/dL (32.0-36.0); Mean Corpuscular Hemoglobin 30.1 pg (27.0-31.0); Mean Corpuscular Volume 95.7 fL (78.0-98.0); Mean Platelet Volume 10.5 fL (7.4-10.4); Platelet Count 164 10x3/uL (130-400); Red Blood Cell (RBC) Count 3.45 mill/uL (4.20-5.40)
[2024-03-22 10:46] LABS: ALT (SGPT) 9 U/L (8-55); AST (SGOT) 19 U/L (5-34); Albumin 3.5 g/dL (3.4-4.8); Alkaline Phosphatase 124 U/L (40-110); Anion Gap 11 mmol/L (10-20); BUN (Urea Nitrogen) 40 mg/dL (9.8-20.1); Bilirubin, Total 1.3 mg/dL (0.2-1.2); Calc. Creatinine Clearance 0 mL/min (70-130); Calcium 8.7 mg/dL (7.8-10.44); Carbon Dioxide 26 mmol/L (23-31); Chloride 108 mmol/L (98-107); Estimated GFR 31; Globulin 2.6 g/dL (2.4-3.5); Glucose 136 mg/dL (83-110); Lipase 22 U/L (8-78); Magnesium 2.1 mg/dL (1.6-2.6); Potassium 4.2 mmol/L (3.5-5.1); Protein, Total 6.1 g/dL (5.8-8.1); Sodium 141 mmol/L (136-145)
[2024-03-22 10:53] LABS: INR-International Normal Ratio 1.1; PTT 36.7 sec (22.9-36.1); Prothrombin Time 14.7 sec (12.0-14.7)
[2024-03-22 11:03] LABS: Troponin I 0.022 ng/mL (< 0.028)
[2024-03-22] MEDS ORDERED: Furosemide 40 MG (4 mL) VIAL ONE (12:08)
[2024-03-22] MEDS ORDERED: Furosemide 20 MG (2 mL) VIAL ONE (13:08)
[2024-03-22] MEDS ORDERED: hydrALAZINE 10 MG TAB ONE (15:15)
[2024-03-22 17:13] LABS: Influenza A by NAA Not Detected (NotDetected); Influenza B by NAA Not Detected (NotDetected); SARS-CoV-2 NAA Rapid Test Not Detected (NotDetected)
[2024-03-22] MEDS: Isosorbide Dinitrate 20 MG TAB PO SCH (21:43)
[2024-03-22] MEDS: Carvedilol 25 MG TAB PO SCH (21:43)
[2024-03-22] MEDS: Atorvastatin Calcium 40 MG TAB PO SCH (21:43)
[2024-03-22] MEDS: hydrALAZINE 25 MG TAB PO SCH (21:43)
[2024-03-22] MEDS: Furosemide 40 MG (4 mL) VIAL SLOW IVP SCH (21:43)
[2024-03-22] MEDS: Ferrous Sulfate 325 MG TAB PO SCH (21:45)
[2024-03-22 23:54] VITALS: BMI 23.0
[2024-03-23] MEDS: Icosapent Ethyl 1 GM CAPSULE PO SCH (00:04)
[2024-03-23] MEDS: Azithromycin 250 MG TAB PO SCH ×2 (00:04→10:18)
[2024-03-23] MEDS: Empagliflozin 10 MG TAB PO SCH ×2 (00:04→09:13)
[2024-03-23] MEDS: Isosorbide Dinitrate 20 MG TAB PO SCH ×2 (00:04→20:58)
[2024-03-23] MEDS: Isosorbide Dinitrate 5 MG TAB PO SCH (00:06)
[2024-03-23 05:41] LABS: #Basophils 0.05 10x3/uL (0.0-0.2); %Basophils 0.8 % (0.0-1.0); %Eosinophils 5.1 % (0.0-10.0); %Lymphocytes 19.1 % (21.0-51.0); %Monocytes 9.8 % (0.0-10.0); %Neutrophils 64.9 % (42.0-75.0); Hematocrit 29.2 % (36.0-47.0); Hemoglobin 9.2 g/dL (12.0-16.0); Mean Corpuscular HGB CONC 31.5 g/dL (32.0-36.0); Mean Corpuscular Hemoglobin 29.1 pg (27.0-31.0); Mean Corpuscular Volume 92.4 fL (78.0-98.0); Mean Platelet Volume 11.2 fL (7.4-10.4); Platelet Count 148 10x3/uL (130-400); RBC Distribution Width 14.8 % (11.5-14.5); Red Blood Cell (RBC) Count 3.16 mill/uL (4.20-5.40)
[2024-03-23 05:57] LABS: Iron 22 ug/dL (50-170); Iron Binding Capacity, Total 199 mcg/dL (265-497)
[2024-03-23 05:58] LABS: Anion Gap 13 mmol/L (10-20); BUN (Urea Nitrogen) 44 mg/dL (9.8-20.1); Calc. Creatinine Clearance 22 mL/min (70-130); Calcium 8.5 mg/dL (7.8-10.44); Carbon Dioxide 28 mmol/L (23-31); Chloride 102 mmol/L (98-107); Estimated GFR 26; Glucose 107 mg/dL (83-110); Iron 22 ug/dL (50-170); Iron Binding Capacity, Total 199 mcg/dL (265-497); Potassium 3.8 mmol/L (3.5-5.1); Sodium 139 mmol/L (136-145)
[2024-03-23] MEDS ORDERED: Ipratropium/Albuterol 3 ML NEB NEB PRN (08:00)
[2024-03-23] MEDS ORDERED: Isosorbide Mononitrate 60 MG ER.TAB PO SCH (09:00)
[2024-03-23] MEDS ORDERED: Bumetanide 1 MG TAB PO SCH (09:00)
[2024-03-23] MEDS: Bumetanide 1 MG TAB PO SCH (09:12)
[2024-03-23] MEDS: Folic Acid 1 MG TAB PO SCH (09:13)
[2024-03-23] MEDS: Aspirin 81 mg Enteric Coated Tablet PO SCH (09:13)
[2024-03-23] MEDS: Loratadine 10 MG TAB PO SCH (09:13)
[2024-03-23] MEDS: Cholecalciferol 1,000 UNITS (25 MCG) TAB PO SCH (09:14)
[2024-03-23] MEDS: Pantoprazole DR 40 MG TAB PO SCH (09:14)
[2024-03-23] MEDS: Enoxaparin 30 MG (0.3 mL) SYRINGE SC SCH (09:14)
[2024-03-23] MEDS ORDERED: Albuterol 2.5 MG (3 mL) NEB NEB PRN (09:41)
[2024-03-23] MEDS: Ipratropium/Albuterol 3 ML NEB NEB SCH (10:40)
[2024-03-23] MEDS: predniSONE 20 MG TAB PO SCH (12:31)
[2024-03-23] MEDS: Lactated Ringer's 250 ML IV SCH (12:33)
[2024-03-23] MEDS: Ipratropium/Albuterol 3 ML NEB IPPB SCH (13:49)
[2024-03-23 14:54] VITALS: BMI 23.0
[2024-03-23] MEDS ORDERED: Isosorbide Dinitrate 20 MG TAB PO SCH (15:00)
[2024-03-23] MEDS: Mometasone 100 MCG/Formoterol 5 MCG 120 PUFF INHALER INH SCH (18:44)
[2024-03-23] MEDS: hydrALAZINE 25 MG TAB PO SCH (20:59)
[2024-03-24 05:14] LABS: #Basophils 0.04 10x3/uL (0.0-0.2); #Eosinphils Less than 0.03 10x3/uL (0.0-0.7); %Basophils 0.7 % (0.0-1.0); %Eosinophils 0.3 % (0.0-10.0); %Lymphocytes 12.8 % (21.0-51.0); %Monocytes 7.8 % (0.0-10.0); %Neutrophils 78.1 % (42.0-75.0); Hematocrit 31.1 % (36.0-47.0); Hemoglobin 9.8 g/dL (12.0-16.0); Mean Corpuscular HGB CONC 31.5 g/dL (32.0-36.0); Mean Corpuscular Hemoglobin 28.6 pg (27.0-31.0); Mean Corpuscular Volume 90.7 fL (78.0-98.0); Mean Platelet Volume 11.2 fL (7.4-10.4); Platelet Count 160 10x3/uL (130-400); RBC Distribution Width 14.5 % (11.5-14.5); Red Blood Cell (RBC) Count 3.43 mill/uL (4.20-5.40)
[2024-03-24 05:33] LABS: Anion Gap 13 mmol/L (10-20); BUN (Urea Nitrogen) 59 mg/dL (9.8-20.1); Calc. Creatinine Clearance 17 mL/min (70-130); Calcium 8.7 mg/dL (7.8-10.44); Carbon Dioxide 27 mmol/L (23-31); Chloride 104 mmol/L (98-107); Estimated GFR 19; Glucose 152 mg/dL (83-110); Magnesium 2.1 mg/dL (1.6-2.6); Sodium 140 mmol/L (136-145)
[2024-03-24] MEDS: predniSONE 20 MG TAB PO SCH (08:52)
[2024-03-24] MEDS: Azithromycin 250 MG TAB PO SCH (08:54)
[2024-03-24 15:36] LABS: Anion Gap 18 mmol/L (10-20); BUN (Urea Nitrogen) 59 mg/dL (9.8-20.1); Calc. Creatinine Clearance 18 mL/min (70-130); Calcium 8.6 mg/dL (7.8-10.44); Carbon Dioxide 24 mmol/L (23-31); Chloride 103 mmol/L (98-107); Estimated GFR 20; Glucose 200 mg/dL (83-110); Potassium 4.4 mmol/L (3.5-5.1); Sodium 141 mmol/L (136-145)
[2024-03-24] MEDS: Carvedilol 6.25 MG TAB PO SCH (17:36)
[2024-03-24] MEDS ORDERED: Carvedilol 6.25 MG TAB PO SCH (21:00)
[2024-03-25 04:28] LABS: #Basophils 0.04 10x3/uL (0.0-0.2); %Basophils 0.5 % (0.0-1.0); %Eosinophils 0.9 % (0.0-10.0); %Lymphocytes 16.3 % (21.0-51.0); %Monocytes 7.4 % (0.0-10.0); %Neutrophils 74.6 % (42.0-75.0); Hematocrit 31.1 % (36.0-47.0); Mean Corpuscular HGB CONC 32.2 g/dL (32.0-36.0); Mean Corpuscular Hemoglobin 29.3 pg (27.0-31.0); Mean Corpuscular Volume 91.2 fL (78.0-98.0); Mean Platelet Volume 10.9 fL (7.4-10.4); Platelet Count 145 10x3/uL (130-400); RBC Distribution Width 14.4 % (11.5-14.5); Red Blood Cell (RBC) Count 3.41 mill/uL (4.20-5.40)
[2024-03-25 05:15] LABS: Anion Gap 16 mmol/L (10-20); BUN (Urea Nitrogen) 66 mg/dL (9.8-20.1); Calc. Creatinine Clearance 19 mL/min (70-130); Calcium 8.5 mg/dL (7.8-10.44); Carbon Dioxide 26 mmol/L (23-31); Chloride 103 mmol/L (98-107); Estimated GFR 22; Glucose 145 mg/dL (83-110); Magnesium 2.4 mg/dL (1.6-2.6); Potassium 4.8 mmol/L (3.5-5.1); Sodium 140 mmol/L (136-145)
[2024-03-25] MEDS ORDERED: hydrALAZINE 25 MG TAB PO SCH (09:00)
[2024-03-25] MEDS: hydrALAZINE 25 MG TAB PO SCH (09:58)
[2024-03-25] MEDS: Isosorbide Dinitrate 20 MG TAB PO SCH (10:00)
[2024-03-25] MEDS: Ipratropium/Albuterol 3 ML NEB NEB PRN (19:07)
[2024-03-26 05:54] LABS: Anion Gap 13 mmol/L (10-20); BUN (Urea Nitrogen) 64 mg/dL (9.8-20.1); Calc. Creatinine Clearance 19 mL/min (70-130); Calcium 8.6 mg/dL (7.8-10.44); Carbon Dioxide 27 mmol/L (23-31); Chloride 107 mmol/L (98-107); Estimated GFR 20; Glucose 150 mg/dL (83-110); Magnesium 2.6 mg/dL (1.6-2.6); Potassium 4.7 mmol/L (3.5-5.1); Sodium 142 mmol/L (136-145)
[2024-03-26 06:06] LABS: #Basophils 0.04 10x3/uL (0.0-0.2); %Basophils 0.6 % (0.0-1.0); %Eosinophils 0.4 % (0.0-10.0); %Lymphocytes 17.2 % (21.0-51.0); %Monocytes 8.2 % (0.0-10.0); %Neutrophils 73.3 % (42.0-75.0); Hematocrit 29.9 % (36.0-47.0); Hemoglobin 9.5 g/dL (12.0-16.0); Mean Corpuscular HGB CONC 31.8 g/dL (32.0-36.0); Mean Corpuscular Hemoglobin 30.3 pg (27.0-31.0); Mean Corpuscular Volume 95.2 fL (78.0-98.0); Mean Platelet Volume 11.7 fL (7.4-10.4); Platelet Count 160 10x3/uL (130-400); RBC Distribution Width 14.5 % (11.5-14.5); Red Blood Cell (RBC) Count 3.14 mill/uL (4.20-5.40)
[2024-03-26] MEDS: guaiFENesin ER 600 MG TAB PO SCH (09:27)
[2024-03-26] MEDS: Clopidogrel Bisulfate 75 MG TAB PO SCH (09:28)
[2024-03-26] MEDS: Loratadine 10 MG TAB PO SCH (09:29)
[2024-03-27 06:38] LABS: #Basophils 0.06 10x3/uL (0.0-0.2); %Basophils 0.7 % (0.0-1.0); %Eosinophils 1.1 % (0.0-10.0); %Lymphocytes 18.3 % (21.0-51.0); %Monocytes 8.4 % (0.0-10.0); %Neutrophils 71.2 % (42.0-75.0); Hematocrit 32.1 % (36.0-47.0); Hemoglobin 10.1 g/dL (12.0-16.0); Mean Corpuscular HGB CONC 31.5 g/dL (32.0-36.0); Mean Corpuscular Hemoglobin 29.3 pg (27.0-31.0); Mean Platelet Volume 11.1 fL (7.4-10.4); Platelet Count 165 10x3/uL (130-400); RBC Distribution Width 14.4 % (11.5-14.5); Red Blood Cell (RBC) Count 3.45 mill/uL (4.20-5.40)
[2024-03-27 07:06] LABS: Anion Gap 16 mmol/L (10-20); BUN (Urea Nitrogen) 64 mg/dL (9.8-20.1); Calc. Creatinine Clearance 25 mL/min (70-130); Calcium 8.7 mg/dL (7.8-10.44); Carbon Dioxide 20 mmol/L (23-31); Chloride 106 mmol/L (98-107); Estimated GFR 27; Glucose 94 mg/dL (83-110); Magnesium 2.6 mg/dL (1.6-2.6); Potassium 4.6 mmol/L (3.5-5.1); Sodium 137 mmol/L (136-145)
[2024-03-27] MEDS: Amlodipine 5 MG TAB PO SCH (08:57)
[2024-03-27] MEDS ORDERED: Bumetanide 1 MG TAB PO SCH (09:00)
[2024-03-27 12:19] VITALS: BP 155/68; TEMP 97.7
== END 2024-03-27 15:01 | disposition home or self-care (01) | DRG 291 ==
LOC: ERS 09:23 → 2NO 12:46 → OBSVTOIN 03-23 11:23
PROVIDERS: ADMIT Family Medicine; ATTEND Family Medicine
DX: I13.0 Hypertensive heart and chronic kidney disease with heart failure and stage 1 through stage 4 chronic kidney disease, or unspecified chronic kidney disease (principal); I50.33 Acute on chronic diastolic (congestive) heart failure; J44.1 Chronic obstructive pulmonary disease with (acute) exacerbation; I16.1 Hypertensive emergency; N17.9 Acute kidney failure, unspecified; I45.89 Other specified conduction disorders; F41.9 Anxiety disorder, unspecified; E78.5 Hyperlipidemia, unspecified; I25.10 Atherosclerotic heart disease of native coronary artery without angina pectoris; N18.9 Chronic kidney disease, unspecified; J06.9 Acute upper respiratory infection, unspecified; D50.9 Iron deficiency anemia, unspecified; E11.22 Type 2 diabetes mellitus with diabetic chronic kidney disease; I49.5 Sick sinus syndrome; Z95.0 Presence of cardiac pacemaker; Z95.1 Presence of aortocoronary bypass graft; Z88.0 Allergy status to penicillin; Z87.891 Personal history of nicotine dependence; Z79.82 Long term (current) use of aspirin; Z79.899 Other long term (current) drug therapy; Z83.3 Family history of diabetes mellitus; Z99.81 Dependence on supplemental oxygen
CPT/HCPCS: 36415; 71046; 80048; 80053; 83540; 83550; 83605; 83690; 83735; 83880; 84443; 84484; 85025; 85610; 85730; 87633; 93005; 93306; 94640; 96374; J1650; J1940; J7120; J7512; J7620

== ENCOUNTER 2025-04-30 19:27 | Inpatient (IN) | payer OTHER ==
[2025-04-30] MEDS ORDERED: Glucagon 1 MG/ML KIT IM PRN (21:06)
[2025-04-30] MEDS ORDERED: Dextrose 50% Abboject 50 ML SYRINGE SLOW IVP PRN (21:06)
[2025-04-30] MEDS ORDERED: Senokot S 8.6-50 MG TAB PO PRN (21:12)
[2025-04-30 22:23] LABS: Troponin I 0.018 ng/mL (< 0.028)
[2025-04-30] MEDS: predniSONE 20 MG TAB PO SCH (23:50)
[2025-05-01] MEDS: Acetaminophen 500 MG TAB PO SCH (00:08)
[2025-05-01 04:26] LABS: #Basophils 0.04 10x3/uL (0.0-0.2); #Eosinophils 0.25 10x3/uL (0.0-0.7); #Monocytes 0.58 10x3/uL (0.11-0.59); #Neutrophils 8.42 10x3/uL (1.40-6.50); %Basophils 0.4 % (0.0-1.0); %Eosinophils 2.4 % (0.0-10.0); %Lymphocytes 11.6 % (21.0-51.0); %Monocytes 5.5 % (0.0-10.0); %Neutrophils 79.7 % (42.0-75.0); Hematocrit 31.5 % (36.0-47.0); Hemoglobin 9.8 g/dL (12.0-16.0); Mean Corpuscular Hemoglobin 29.7 pg (27.0-31.0); Mean Corpuscular Volume 95.5 fL (78.0-98.0); Platelet Count 229 10x3/uL (130-400); Red Blood Cell (RBC) Count 3.30 mill/uL (4.20-5.40); White Blood Cell (WBC) Count 10.55 10x3/uL (4.8-10.8)
[2025-05-01 04:34] VITALS: BMI 22.1
[2025-05-01 04:50] LABS: ALT (SGPT) 12 U/L (Less than 34); AST (SGOT) 19 U/L (11-34); Albumin 3.2 g/dL (3.1-4.5); Alkaline Phosphatase 104 U/L (40-110); Anion Gap 16 mmol/L (10-20); BUN (Urea Nitrogen) 41 mg/dL (9.8-20.1); Bilirubin, Total 0.4 mg/dL (0.3-1.2); Calc. Creatinine Clearance 22 mL/min (70-130); Calcium 8.6 mg/dL (7.8-10.44); Carbon Dioxide 22 mmol/L (23-31); Chloride 105 mmol/L (98-107); Globulin 3.1 g/dL (2.4-3.5); Glucose 151 mg/dL (83-110); Potassium 5.0 mmol/L (3.5-5.1); Sodium 138 mmol/L (136-145)
[2025-05-01] MEDS: Mometasone 200 MCG/Formoterol 5 MCG 120 PUFF INHALER INH SCH (07:28)
[2025-05-01] MEDS ORDERED: Furosemide 20 MG TAB PO SCH (09:00)
[2025-05-01] MEDS ORDERED: predniSONE 20 MG TAB PO SCH (09:00)
[2025-05-01] MEDS: Aspirin 81 mg Enteric Coated Tablet PO SCH (09:04)
[2025-05-01] MEDS: Ferrous Sulfate 325 MG TAB PO SCH (09:04)
[2025-05-01] MEDS: hydrALAZINE 10 MG TAB PO SCH (09:05)
[2025-05-01] MEDS: Cholecalciferol 1,000 UNITS (25 MCG) TAB PO SCH (09:05)
[2025-05-01] MEDS: Metoprolol Succinate XL 50 MG ER.TAB PO SCH (09:05)
[2025-05-01] MEDS: Heparin 5,000 UNITS/ML VIAL SC SCH (09:06)
[2025-05-01] MEDS: Folic Acid 1 MG TAB PO SCH (09:06)
[2025-05-01] MEDS: Pantoprazole 40 MG DR.TAB PO SCH (09:06)
[2025-05-01] MEDS: Famotidine 20 MG TAB PO SCH (09:06)
[2025-05-01 10:37] LABS: Magnesium 2.0 mg/dL (1.6-2.6)
[2025-05-02 04:00] LABS: #Basophils 0.03 10x3/uL (0.0-0.2); #Eosinophils 0.41 10x3/uL (0.0-0.7); #Monocytes 0.68 10x3/uL (0.11-0.59); #Neutrophils 5.65 10x3/uL (1.40-6.50); %Basophils 0.4 % (0.0-1.0); %Eosinophils 4.9 % (0.0-10.0); %Lymphocytes 19.4 % (21.0-51.0); %Monocytes 8.1 % (0.0-10.0); %Neutrophils 66.8 % (42.0-75.0); Hematocrit 27.5 % (36.0-47.0); Hemoglobin 8.6 g/dL (12.0-16.0); Mean Corpuscular Hemoglobin 30.2 pg (27.0-31.0); Mean Corpuscular Volume 96.5 fL (78.0-98.0); Platelet Count 241 10x3/uL (130-400); Red Blood Cell (RBC) Count 2.85 mill/uL (4.20-5.40); White Blood Cell (WBC) Count 8.44 10x3/uL (4.8-10.8)
[2025-05-02 04:16] LABS: ALT (SGPT) 11 U/L (Less than 34); AST (SGOT) 16 U/L (11-34); Albumin 3.0 g/dL (3.1-4.5); Alkaline Phosphatase 98 U/L (40-110); Anion Gap 15 mmol/L (10-20); BUN (Urea Nitrogen) 61 mg/dL (9.8-20.1); Bilirubin, Total 0.2 mg/dL (0.3-1.2); Calc. Creatinine Clearance 15 mL/min (70-130); Calcium 8.5 mg/dL (7.8-10.44); Carbon Dioxide 25 mmol/L (23-31); Chloride 104 mmol/L (98-107); Globulin 3.0 g/dL (2.4-3.5); Glucose 129 mg/dL (83-110); Potassium 4.5 mmol/L (3.5-5.1); Sodium 139 mmol/L (136-145)
[2025-05-02] MEDS: Aspirin 81 mg Enteric Coated Tablet PO SCH (08:07)
[2025-05-02] MEDS: DOBUTamine 500 mg/250 ml 500 MG in Premix 1 BAG IVPB SCH (09:56)
[2025-05-02 17:48] LABS: Magnesium 2.3 mg/dL (1.6-2.6)
[2025-05-03 04:01] LABS: #Basophils 0.05 10x3/uL (0.0-0.2); #Eosinophils 0.63 10x3/uL (0.0-0.7); #Monocytes 0.59 10x3/uL (0.11-0.59); #Neutrophils 4.56 10x3/uL (1.40-6.50); %Basophils 0.7 % (0.0-1.0); %Eosinophils 8.3 % (0.0-10.0); %Lymphocytes 23.2 % (21.0-51.0); %Monocytes 7.8 % (0.0-10.0); %Neutrophils 59.9 % (42.0-75.0); Hematocrit 26.5 % (36.0-47.0); Hemoglobin 8.1 g/dL (12.0-16.0); Mean Corpuscular Hemoglobin 29.6 pg (27.0-31.0); Mean Corpuscular Volume 96.7 fL (78.0-98.0); Platelet Count 236 10x3/uL (130-400); Red Blood Cell (RBC) Count 2.74 mill/uL (4.20-5.40); White Blood Cell (WBC) Count 7.60 10x3/uL (4.8-10.8)
[2025-05-03 04:16] LABS: ALT (SGPT) 9 U/L (Less than 34); AST (SGOT) 14 U/L (11-34); Albumin 2.9 g/dL (3.1-4.5); Alkaline Phosphatase 87 U/L (40-110); Anion Gap 13 mmol/L (10-20); BUN (Urea Nitrogen) 63 mg/dL (9.8-20.1); Bilirubin, Total 0.2 mg/dL (0.3-1.2); Calc. Creatinine Clearance 17 mL/min (70-130); Calcium 8.0 mg/dL (7.8-10.44); Carbon Dioxide 23 mmol/L (23-31); Chloride 110 mmol/L (98-107); Globulin 2.7 g/dL (2.4-3.5); Glucose 118 mg/dL (83-110); Potassium 4.1 mmol/L (3.5-5.1); Sodium 142 mmol/L (136-145)
[2025-05-03 07:22] LABS: Magnesium 2.3 mg/dL (1.6-2.6)
[2025-05-03 12:40] LABS: Iron 27 ug/dL (50-170); Iron Binding Capacity, Total 215 mcg/dL (265-497)
[2025-05-04 04:16] LABS: #Basophils 0.04 10x3/uL (0.0-0.2); #Eosinophils 0.41 10x3/uL (0.0-0.7); #Monocytes 0.48 10x3/uL (0.11-0.59); #Neutrophils 5.13 10x3/uL (1.40-6.50); %Basophils 0.5 % (0.0-1.0); %Eosinophils 5.5 % (0.0-10.0); %Lymphocytes 18.1 % (21.0-51.0); %Monocytes 6.5 % (0.0-10.0); %Neutrophils 69.1 % (42.0-75.0); Hematocrit 26.3 % (36.0-47.0); Hemoglobin 8.2 g/dL (12.0-16.0); Mean Corpuscular Hemoglobin 30.3 pg (27.0-31.0); Mean Corpuscular Volume 97.0 fL (78.0-98.0); Platelet Count 244 10x3/uL (130-400); Red Blood Cell (RBC) Count 2.71 mill/uL (4.20-5.40); White Blood Cell (WBC) Count 7.42 10x3/uL (4.8-10.8)
[2025-05-04 04:30] LABS: ALT (SGPT) 10 U/L (Less than 34); AST (SGOT) 23 U/L (11-34); Albumin 3.1 g/dL (3.1-4.5); Alkaline Phosphatase 98 U/L (40-110); Anion Gap 14 mmol/L (10-20); BUN (Urea Nitrogen) 52 mg/dL (9.8-20.1); Bilirubin, Total 0.3 mg/dL (0.3-1.2); Calc. Creatinine Clearance 23 mL/min (70-130); Calcium 8.2 mg/dL (7.8-10.44); Carbon Dioxide 21 mmol/L (23-31); Chloride 110 mmol/L (98-107); Globulin 2.9 g/dL (2.4-3.5); Glucose 134 mg/dL (83-110); Magnesium 2.3 mg/dL (1.6-2.6); Potassium 4.9 mmol/L (3.5-5.1); Sodium 140 mmol/L (136-145)
[2025-05-04] MEDS: Sodium Ferric Gluconate 250 MG in Sodium Chloride 0.9% 250 ML 250 ML IVPB SCH (11:59)
[2025-05-04] MEDS ORDERED: DOBUTamine 500 mg/250 ml 500 MG in Premix 1 BAG IVPB SCH (20:20)
[2025-05-05 05:00] LABS: ALT (SGPT) 9 U/L (Less than 34); AST (SGOT) 18 U/L (11-34); Albumin 2.9 g/dL (3.1-4.5); Alkaline Phosphatase 89 U/L (40-110); Anion Gap 12 mmol/L (10-20); BUN (Urea Nitrogen) 42 mg/dL (9.8-20.1); Bilirubin, Total 0.5 mg/dL (0.3-1.2); Calc. Creatinine Clearance 23 mL/min (70-130); Calcium 8.6 mg/dL (7.8-10.44); Carbon Dioxide 20 mmol/L (23-31); Chloride 114 mmol/L (98-107); Globulin 2.8 g/dL (2.4-3.5); Glucose 115 mg/dL (83-110); Magnesium 2.3 mg/dL (1.6-2.6); Potassium 4.7 mmol/L (3.5-5.1); Sodium 141 mmol/L (136-145)
[2025-05-05 07:11] LABS: #Basophils 0.04 10x3/uL (0.0-0.2); #Eosinophils 0.81 10x3/uL (0.0-0.7); #Monocytes 0.51 10x3/uL (0.11-0.59); #Neutrophils 4.26 10x3/uL (1.40-6.50); %Basophils 0.6 % (0.0-1.0); %Eosinophils 11.4 % (0.0-10.0); %Lymphocytes 20.4 % (21.0-51.0); %Monocytes 7.2 % (0.0-10.0); %Neutrophils 60.0 % (42.0-75.0); Hematocrit 25.6 % (36.0-47.0); Hemoglobin 7.7 g/dL (12.0-16.0); Mean Corpuscular Hemoglobin 29.3 pg (27.0-31.0); Mean Corpuscular Volume 97.3 fL (78.0-98.0); Platelet Count 227 10x3/uL (130-400); Red Blood Cell (RBC) Count 2.63 mill/uL (4.20-5.40); White Blood Cell (WBC) Count 7.10 10x3/uL (4.8-10.8)
[2025-05-05] MEDS: Dapagliflozin Propanediol 10 MG TAB PO SCH (09:24)
[2025-05-05 09:35] LABS: Hematocrit 29.2 % (36.0-47.0); Hemoglobin 8.9 g/dL (12.0-16.0); Platelet Count 254 10x3/uL (130-400)
[2025-05-06 03:47] LABS: #Basophils 0.03 10x3/uL (0.0-0.2); #Eosinophils 0.84 10x3/uL (0.0-0.7); #Monocytes 0.56 10x3/uL (0.11-0.59); #Neutrophils 5.49 10x3/uL (1.40-6.50); %Basophils 0.4 % (0.0-1.0); %Eosinophils 10.0 % (0.0-10.0); %Lymphocytes 16.9 % (21.0-51.0); %Monocytes 6.7 % (0.0-10.0); %Neutrophils 65.5 % (42.0-75.0); Hematocrit 26.7 % (36.0-47.0); Hemoglobin 8.2 g/dL (12.0-16.0); Mean Corpuscular Hemoglobin 29.7 pg (27.0-31.0); Mean Corpuscular Volume 96.7 fL (78.0-98.0); Platelet Count 239 10x3/uL (130-400); Red Blood Cell (RBC) Count 2.76 mill/uL (4.20-5.40); White Blood Cell (WBC) Count 8.38 10x3/uL (4.8-10.8)
[2025-05-06 04:23] LABS: ALT (SGPT) 12 U/L (Less than 34); AST (SGOT) 21 U/L (11-34); Albumin 3.1 g/dL (3.1-4.5); Alkaline Phosphatase 93 U/L (40-110); Anion Gap 11 mmol/L (10-20); BUN (Urea Nitrogen) 35 mg/dL (9.8-20.1); Bilirubin, Total 0.4 mg/dL (0.3-1.2); Calc. Creatinine Clearance 23 mL/min (70-130); Calcium 8.5 mg/dL (7.8-10.44); Carbon Dioxide 22 mmol/L (23-31); Chloride 113 mmol/L (98-107); Globulin 2.7 g/dL (2.4-3.5); Glucose 120 mg/dL (83-110); Magnesium 2.3 mg/dL (1.6-2.6); Potassium 4.4 mmol/L (3.5-5.1); Sodium 142 mmol/L (136-145)
[2025-05-07 03:47] LABS: #Basophils 0.05 10x3/uL (0.0-0.2); #Eosinophils 0.79 10x3/uL (0.0-0.7); #Monocytes 0.54 10x3/uL (0.11-0.59); #Neutrophils 4.92 10x3/uL (1.40-6.50); %Basophils 0.6 % (0.0-1.0); %Eosinophils 10.2 % (0.0-10.0); %Lymphocytes 18.3 % (21.0-51.0); %Monocytes 7.0 % (0.0-10.0); %Neutrophils 63.6 % (42.0-75.0); Hematocrit 25.8 % (36.0-47.0); Hemoglobin 7.8 g/dL (12.0-16.0); Mean Corpuscular Hemoglobin 29.7 pg (27.0-31.0); Mean Corpuscular Volume 98.1 fL (78.0-98.0); Platelet Count 226 10x3/uL (130-400); Red Blood Cell (RBC) Count 2.63 mill/uL (4.20-5.40); White Blood Cell (WBC) Count 7.74 10x3/uL (4.8-10.8)
[2025-05-07 04:10] LABS: ALT (SGPT) 13 U/L (Less than 34); AST (SGOT) 23 U/L (11-34); Albumin 3.0 g/dL (3.1-4.5); Alkaline Phosphatase 94 U/L (40-110); Anion Gap 12 mmol/L (10-20); BUN (Urea Nitrogen) 34 mg/dL (9.8-20.1); Bilirubin, Total 0.3 mg/dL (0.3-1.2); Calc. Creatinine Clearance 22 mL/min (70-130); Calcium 8.4 mg/dL (7.8-10.44); Carbon Dioxide 18 mmol/L (23-31); Chloride 114 mmol/L (98-107); Globulin 2.6 g/dL (2.4-3.5); Glucose 147 mg/dL (83-110); Magnesium 2.2 mg/dL (1.6-2.6); Potassium 4.4 mmol/L (3.5-5.1); Sodium 140 mmol/L (136-145)
[2025-05-07 09:46] LABS: Hematocrit 26.7 % (36.0-47.0); Hemoglobin 8.1 g/dL (12.0-16.0); Platelet Count 233 10x3/uL (130-400)
[2025-05-07] MEDS: Furosemide 20 MG (2 mL) VIAL SLOW IVP SCH (16:48)
[2025-05-07 21:17] LABS: Hematocrit 29.1 % (36.0-47.0); Hemoglobin 9.3 g/dL (12.0-16.0)
[2025-05-08 04:45] LABS: #Basophils 0.06 10x3/uL (0.0-0.2); #Eosinophils 0.74 10x3/uL (0.0-0.7); #Monocytes 0.61 10x3/uL (0.11-0.59); #Neutrophils 5.31 10x3/uL (1.40-6.50); %Basophils 0.7 % (0.0-1.0); %Eosinophils 9.0 % (0.0-10.0); %Lymphocytes 18.2 % (21.0-51.0); %Monocytes 7.4 % (0.0-10.0); %Neutrophils 64.3 % (42.0-75.0); Hematocrit 30.9 % (36.0-47.0); Hemoglobin 9.6 g/dL (12.0-16.0); Mean Corpuscular Hemoglobin 29.2 pg (27.0-31.0); Mean Corpuscular Volume 93.9 fL (78.0-98.0); Platelet Count 258 10x3/uL (130-400); Red Blood Cell (RBC) Count 3.29 mill/uL (4.20-5.40); White Blood Cell (WBC) Count 8.25 10x3/uL (4.8-10.8)
[2025-05-08 04:57] LABS: ALT (SGPT) 12 U/L (Less than 34); AST (SGOT) 21 U/L (11-34); Albumin 3.2 g/dL (3.1-4.5); Alkaline Phosphatase 101 U/L (40-110); Anion Gap 14 mmol/L (10-20); BUN (Urea Nitrogen) 28 mg/dL (9.8-20.1); Bilirubin, Total 0.7 mg/dL (0.3-1.2); Calc. Creatinine Clearance 22 mL/min (70-130); Calcium 8.8 mg/dL (7.8-10.44); Carbon Dioxide 20 mmol/L (23-31); Chloride 108 mmol/L (98-107); Globulin 2.9 g/dL (2.4-3.5); Glucose 149 mg/dL (83-110); Magnesium 2.0 mg/dL (1.6-2.6); Potassium 4.3 mmol/L (3.5-5.1); Sodium 138 mmol/L (136-145)
[2025-05-08] MEDS: Magnesium Oxide 400 MG TAB PO SCH (10:28)
[2025-05-09 04:19] LABS: #Basophils 0.05 10x3/uL (0.0-0.2); #Eosinophils 0.62 10x3/uL (0.0-0.7); #Monocytes 0.67 10x3/uL (0.11-0.59); #Neutrophils 5.86 10x3/uL (1.40-6.50); %Basophils 0.6 % (0.0-1.0); %Eosinophils 7.2 % (0.0-10.0); %Lymphocytes 16.5 % (21.0-51.0); %Monocytes 7.7 % (0.0-10.0); %Neutrophils 67.8 % (42.0-75.0); Hematocrit 30.5 % (36.0-47.0); Hemoglobin 9.5 g/dL (12.0-16.0); Mean Corpuscular Hemoglobin 29.2 pg (27.0-31.0); Mean Corpuscular Volume 93.8 fL (78.0-98.0); Platelet Count 244 10x3/uL (130-400); Red Blood Cell (RBC) Count 3.25 mill/uL (4.20-5.40); White Blood Cell (WBC) Count 8.65 10x3/uL (4.8-10.8)
[2025-05-09 04:39] LABS: ALT (SGPT) 13 U/L (Less than 34); AST (SGOT) 22 U/L (11-34); Albumin 3.1 g/dL (3.1-4.5); Alkaline Phosphatase 100 U/L (40-110); Anion Gap 12 mmol/L (10-20); BUN (Urea Nitrogen) 30 mg/dL (9.8-20.1); Bilirubin, Total 0.4 mg/dL (0.3-1.2); Calc. Creatinine Clearance 19 mL/min (70-130); Calcium 8.6 mg/dL (7.8-10.44); Carbon Dioxide 20 mmol/L (23-31); Chloride 110 mmol/L (98-107); Globulin 2.7 g/dL (2.4-3.5); Glucose 133 mg/dL (83-110); Magnesium 2.1 mg/dL (1.6-2.6); Potassium 4.3 mmol/L (3.5-5.1); Sodium 138 mmol/L (136-145)
[2025-05-09] MEDS: Magnesium Oxide 400 MG TAB PO SCH (09:58)
[2025-05-09 12:31] LABS: Bacteria/HPF None Seen HPF (None Seen); CAUTI Indications for Culture Dysuria,urgency,freq; Glucose, Urine (Dipstick) 500 mg/dL (Negative); Leukocyte Negative Leu/uL (Negative); Protein, Urine (Dipstick) Negative (Neg-Trace); RBC/HPF None Seen HPF (0-3); Specific Gravity, Urine 1.012 (1.002-1.036); WBC/HPF 0-3 HPF (0-3)
[2025-05-09 12:32] LABS: Urine Culture Reflex No No
[2025-05-10 07:13] LABS: #Basophils 0.05 10x3/uL (0.0-0.2); #Eosinophils 0.62 10x3/uL (0.0-0.7); #Monocytes 0.56 10x3/uL (0.11-0.59); #Neutrophils 4.55 10x3/uL (1.40-6.50); %Basophils 0.7 % (0.0-1.0); %Eosinophils 8.7 % (0.0-10.0); %Lymphocytes 18.9 % (21.0-51.0); %Monocytes 7.8 % (0.0-10.0); %Neutrophils 63.6 % (42.0-75.0); Hematocrit 29.5 % (36.0-47.0); Hemoglobin 9.3 g/dL (12.0-16.0); Mean Corpuscular Hemoglobin 29.7 pg (27.0-31.0); Mean Corpuscular Volume 94.2 fL (78.0-98.0); Platelet Count 229 10x3/uL (130-400); Red Blood Cell (RBC) Count 3.13 mill/uL (4.20-5.40); White Blood Cell (WBC) Count 7.15 10x3/uL (4.8-10.8)
[2025-05-10 07:57] LABS: ALT (SGPT) 13 U/L (Less than 34); AST (SGOT) 23 U/L (11-34); Alkaline Phosphatase 104 U/L (40-110); BUN (Urea Nitrogen) 32 mg/dL (9.8-20.1); Bilirubin, Total 0.3 mg/dL (0.3-1.2); Calc. Creatinine Clearance 20 mL/min (70-130); Magnesium 2.1 mg/dL (1.6-2.6)
[2025-05-10 07:58] LABS: Albumin 3.1 g/dL (3.1-4.5); Calcium 8.5 mg/dL (7.8-10.44); Chloride 110 mmol/L (98-107); Glucose 134 mg/dL (83-110); Potassium 4.0 mmol/L (3.5-5.1); Sodium 138 mmol/L (136-145)
[2025-05-10 07:59] LABS: Anion Gap 12 mmol/L (10-20); Carbon Dioxide 20 mmol/L (23-31); Globulin 2.7 g/dL (2.4-3.5)
[2025-05-10] MEDS: EPOETIN ALFA-EPBX (ESRD) 10,000 UNITS/ML VIAL SC SCH (17:43)
[2025-05-11 04:11] LABS: #Basophils 0.04 10x3/uL (0.0-0.2); #Eosinophils 0.48 10x3/uL (0.0-0.7); #Monocytes 0.53 10x3/uL (0.11-0.59); #Neutrophils 4.03 10x3/uL (1.40-6.50); %Basophils 0.6 % (0.0-1.0); %Eosinophils 7.4 % (0.0-10.0); %Lymphocytes 21.8 % (21.0-51.0); %Monocytes 8.1 % (0.0-10.0); %Neutrophils 61.8 % (42.0-75.0); Hematocrit 30.0 % (36.0-47.0); Hemoglobin 9.4 g/dL (12.0-16.0); Mean Corpuscular Hemoglobin 29.7 pg (27.0-31.0); Mean Corpuscular Volume 94.9 fL (78.0-98.0); Platelet Count 221 10x3/uL (130-400); Red Blood Cell (RBC) Count 3.16 mill/uL (4.20-5.40); White Blood Cell (WBC) Count 6.52 10x3/uL (4.8-10.8)
[2025-05-11 04:41] LABS: ALT (SGPT) 14 U/L (Less than 34); AST (SGOT) 19 U/L (11-34); Albumin 3.2 g/dL (3.1-4.5); Alkaline Phosphatase 99 U/L (40-110); Anion Gap 14 mmol/L (10-20); BUN (Urea Nitrogen) 40 mg/dL (9.8-20.1); Bilirubin, Total 0.4 mg/dL (0.3-1.2); Calc. Creatinine Clearance 18 mL/min (70-130); Calcium 8.5 mg/dL (7.8-10.44); Carbon Dioxide 19 mmol/L (23-31); Chloride 109 mmol/L (98-107); Globulin 2.7 g/dL (2.4-3.5); Glucose 114 mg/dL (83-110); Magnesium 2.2 mg/dL (1.6-2.6); Potassium 4.1 mmol/L (3.5-5.1); Sodium 138 mmol/L (136-145)
[2025-05-11] MEDS: Acetaminophen 500 MG TAB PO PRN (20:31)
[2025-05-12 04:17] LABS: #Basophils 0.03 10x3/uL (0.0-0.2); #Eosinophils 0.41 10x3/uL (0.0-0.7); #Monocytes 0.48 10x3/uL (0.11-0.59); #Neutrophils 3.76 10x3/uL (1.40-6.50); %Basophils 0.5 % (0.0-1.0); %Eosinophils 6.7 % (0.0-10.0); %Lymphocytes 23.7 % (21.0-51.0); %Monocytes 7.8 % (0.0-10.0); %Neutrophils 61.0 % (42.0-75.0); Hematocrit 29.6 % (36.0-47.0); Hemoglobin 9.1 g/dL (12.0-16.0); Mean Corpuscular Hemoglobin 29.7 pg (27.0-31.0); Mean Corpuscular Volume 96.7 fL (78.0-98.0); Platelet Count 222 10x3/uL (130-400); Red Blood Cell (RBC) Count 3.06 mill/uL (4.20-5.40); White Blood Cell (WBC) Count 6.16 10x3/uL (4.8-10.8)
[2025-05-12 04:33] LABS: ALT (SGPT) 13 U/L (Less than 34); AST (SGOT) 22 U/L (11-34); Albumin 3.1 g/dL (3.1-4.5); Alkaline Phosphatase 99 U/L (40-110); Anion Gap 12 mmol/L (10-20); BUN (Urea Nitrogen) 36 mg/dL (9.8-20.1); Bilirubin, Total 0.3 mg/dL (0.3-1.2); Calc. Creatinine Clearance 21 mL/min (70-130); Calcium 8.9 mg/dL (7.8-10.44); Carbon Dioxide 19 mmol/L (23-31); Chloride 111 mmol/L (98-107); Globulin 2.8 g/dL (2.4-3.5); Glucose 103 mg/dL (83-110); Potassium 4.4 mmol/L (3.5-5.1); Sodium 138 mmol/L (136-145)
[2025-05-13 03:49] LABS: #Basophils 0.05 10x3/uL (0.0-0.2); #Eosinophils 0.46 10x3/uL (0.0-0.7); #Monocytes 0.46 10x3/uL (0.11-0.59); #Neutrophils 5.06 10x3/uL (1.40-6.50); %Basophils 0.7 % (0.0-1.0); %Eosinophils 6.2 % (0.0-10.0); %Lymphocytes 18.2 % (21.0-51.0); %Monocytes 6.2 % (0.0-10.0); %Neutrophils 68.3 % (42.0-75.0); Hematocrit 30.6 % (36.0-47.0); Hemoglobin 9.4 g/dL (12.0-16.0); Mean Corpuscular Hemoglobin 30.0 pg (27.0-31.0); Mean Corpuscular Volume 97.8 fL (78.0-98.0); Platelet Count 230 10x3/uL (130-400); Red Blood Cell (RBC) Count 3.13 mill/uL (4.20-5.40); White Blood Cell (WBC) Count 7.41 10x3/uL (4.8-10.8)
[2025-05-13 04:06] LABS: ALT (SGPT) 13 U/L (Less than 34); AST (SGOT) 20 U/L (11-34); Albumin 3.2 g/dL (3.1-4.5); Alkaline Phosphatase 98 U/L (40-110); Anion Gap 15 mmol/L (10-20); BUN (Urea Nitrogen) 34 mg/dL (9.8-20.1); Bilirubin, Total 0.4 mg/dL (0.3-1.2); Calc. Creatinine Clearance 22 mL/min (70-130); Calcium 8.9 mg/dL (7.8-10.44); Carbon Dioxide 20 mmol/L (23-31); Chloride 110 mmol/L (98-107); Globulin 2.7 g/dL (2.4-3.5); Glucose 96 mg/dL (83-110); Potassium 4.7 mmol/L (3.5-5.1); Sodium 140 mmol/L (136-145)
[2025-05-13 07:08] LABS: Magnesium 2.2 mg/dL (1.6-2.6)
[2025-05-13 17:37] LABS: Metanephrine,Plasma <25.0 pg/mL (0.0-88.0); Normetanephrine,Pl 73.7 pg/mL (0.0-297.2)
[2025-05-14 04:04] LABS: #Basophils 0.04 10x3/uL (0.0-0.2); #Eosinophils 0.46 10x3/uL (0.0-0.7); #Monocytes 0.57 10x3/uL (0.11-0.59); #Neutrophils 6.51 10x3/uL (1.40-6.50); %Basophils 0.5 % (0.0-1.0); %Eosinophils 5.2 % (0.0-10.0); %Lymphocytes 14.3 % (21.0-51.0); %Monocytes 6.4 % (0.0-10.0); %Neutrophils 73.4 % (42.0-75.0); Hematocrit 32.6 % (36.0-47.0); Hemoglobin 10.1 g/dL (12.0-16.0); Mean Corpuscular Hemoglobin 30.3 pg (27.0-31.0); Mean Corpuscular Volume 97.9 fL (78.0-98.0); Platelet Count 260 10x3/uL (130-400); Red Blood Cell (RBC) Count 3.33 mill/uL (4.20-5.40); White Blood Cell (WBC) Count 8.87 10x3/uL (4.8-10.8)
[2025-05-14 04:24] LABS: ALT (SGPT) 11 U/L (Less than 34); AST (SGOT) 20 U/L (11-34); Albumin 3.4 g/dL (3.1-4.5); Alkaline Phosphatase 111 U/L (40-110); Anion Gap 16 mmol/L (10-20); BUN (Urea Nitrogen) 33 mg/dL (9.8-20.1); Bilirubin, Total 0.5 mg/dL (0.3-1.2); Calc. Creatinine Clearance 21 mL/min (70-130); Calcium 9.0 mg/dL (7.8-10.44); Carbon Dioxide 19 mmol/L (23-31); Chloride 109 mmol/L (98-107); Globulin 3.1 g/dL (2.4-3.5); Glucose 110 mg/dL (83-110); Potassium 5.3 mmol/L (3.5-5.1); Sodium 139 mmol/L (136-145)
[2025-05-14] MEDS: Metoprolol Succinate XL 50 MG ER.TAB PO SCH (10:07)
[2025-05-14] MEDS: Sodium Bicarbonate Tab 325 MG TAB PO SCH (10:19)
[2025-05-14] MEDS: LOKELMA 10 GM PACKET PO SCH (12:10)
[2025-05-15 04:37] LABS: #Basophils 0.04 10x3/uL (0.0-0.2); #Eosinophils 0.38 10x3/uL (0.0-0.7); #Monocytes 0.46 10x3/uL (0.11-0.59); #Neutrophils 3.69 10x3/uL (1.40-6.50); %Basophils 0.7 % (0.0-1.0); %Eosinophils 6.5 % (0.0-10.0); %Lymphocytes 21.1 % (21.0-51.0); %Monocytes 7.9 % (0.0-10.0); %Neutrophils 63.5 % (42.0-75.0); Hematocrit 31.1 % (36.0-47.0); Hemoglobin 9.6 g/dL (12.0-16.0); Mean Corpuscular Hemoglobin 30.6 pg (27.0-31.0); Mean Corpuscular Volume 99.0 fL (78.0-98.0); Platelet Count 257 10x3/uL (130-400); Red Blood Cell (RBC) Count 3.14 mill/uL (4.20-5.40); White Blood Cell (WBC) Count 5.82 10x3/uL (4.8-10.8)
[2025-05-15 04:59] LABS: ALT (SGPT) 11 U/L (Less than 34); AST (SGOT) 21 U/L (11-34); Albumin 3.3 g/dL (3.1-4.5); Alkaline Phosphatase 104 U/L (40-110); Anion Gap 13 mmol/L (10-20); BUN (Urea Nitrogen) 32 mg/dL (9.8-20.1); Bilirubin, Total 0.6 mg/dL (0.3-1.2); Calc. Creatinine Clearance 20 mL/min (70-130); Calcium 8.8 mg/dL (7.8-10.44); Carbon Dioxide 23 mmol/L (23-31); Chloride 108 mmol/L (98-107); Globulin 2.9 g/dL (2.4-3.5); Glucose 97 mg/dL (83-110); Potassium 4.1 mmol/L (3.5-5.1); Sodium 140 mmol/L (136-145)
[2025-05-16 04:03] LABS: #Basophils 0.05 10x3/uL (0.0-0.2); #Eosinophils 0.41 10x3/uL (0.0-0.7); #Monocytes 0.52 10x3/uL (0.11-0.59); #Neutrophils 4.52 10x3/uL (1.40-6.50); %Basophils 0.7 % (0.0-1.0); %Eosinophils 6.0 % (0.0-10.0); %Lymphocytes 18.8 % (21.0-51.0); %Monocytes 7.6 % (0.0-10.0); %Neutrophils 66.6 % (42.0-75.0); Hematocrit 31.6 % (36.0-47.0); Hemoglobin 9.7 g/dL (12.0-16.0); Mean Corpuscular Hemoglobin 29.9 pg (27.0-31.0); Mean Corpuscular Volume 97.5 fL (78.0-98.0); Platelet Count 249 10x3/uL (130-400); Red Blood Cell (RBC) Count 3.24 mill/uL (4.20-5.40); White Blood Cell (WBC) Count 6.80 10x3/uL (4.8-10.8)
[2025-05-16 04:27] LABS: ALT (SGPT) 9 U/L (Less than 34); AST (SGOT) 18 U/L (11-34); Albumin 3.2 g/dL (3.1-4.5); Alkaline Phosphatase 103 U/L (40-110); Anion Gap 13 mmol/L (10-20); BUN (Urea Nitrogen) 36 mg/dL (9.8-20.1); Bilirubin, Total 0.5 mg/dL (0.3-1.2); Calc. Creatinine Clearance 19 mL/min (70-130); Calcium 8.5 mg/dL (7.8-10.44); Carbon Dioxide 23 mmol/L (23-31); Chloride 109 mmol/L (98-107); Globulin 2.8 g/dL (2.4-3.5); Glucose 118 mg/dL (83-110); Potassium 4.1 mmol/L (3.5-5.1); Sodium 141 mmol/L (136-145)
[2025-05-16] MEDS: Metoprolol Succinate XL 50 MG ER.TAB PO SCH (08:51)
[2025-05-17 04:01] LABS: #Basophils 0.04 10x3/uL (0.0-0.2); #Eosinophils 0.38 10x3/uL (0.0-0.7); #Monocytes 0.49 10x3/uL (0.11-0.59); #Neutrophils 5.04 10x3/uL (1.40-6.50); %Basophils 0.6 % (0.0-1.0); %Eosinophils 5.4 % (0.0-10.0); %Lymphocytes 14.9 % (21.0-51.0); %Monocytes 7.0 % (0.0-10.0); %Neutrophils 72.0 % (42.0-75.0); Hematocrit 31.3 % (36.0-47.0); Hemoglobin 9.5 g/dL (12.0-16.0); Mean Corpuscular Hemoglobin 29.7 pg (27.0-31.0); Mean Corpuscular Volume 97.8 fL (78.0-98.0); Platelet Count 255 10x3/uL (130-400); Red Blood Cell (RBC) Count 3.20 mill/uL (4.20-5.40); White Blood Cell (WBC) Count 7.00 10x3/uL (4.8-10.8)
[2025-05-17 04:19] LABS: ALT (SGPT) 9 U/L (Less than 34); AST (SGOT) 19 U/L (11-34); Albumin 3.1 g/dL (3.1-4.5); Alkaline Phosphatase 106 U/L (40-110); Anion Gap 12 mmol/L (10-20); BUN (Urea Nitrogen) 34 mg/dL (9.8-20.1); Bilirubin, Total 0.4 mg/dL (0.3-1.2); Calc. Creatinine Clearance 23 mL/min (70-130); Calcium 8.5 mg/dL (7.8-10.44); Carbon Dioxide 22 mmol/L (23-31); Chloride 110 mmol/L (98-107); Globulin 2.9 g/dL (2.4-3.5); Glucose 107 mg/dL (83-110); Potassium 4.3 mmol/L (3.5-5.1); Sodium 140 mmol/L (136-145)
[2025-05-18 07:37] LABS: #Basophils 0.05 10x3/uL (0.0-0.2); #Eosinophils 0.57 10x3/uL (0.0-0.7); #Monocytes 0.50 10x3/uL (0.11-0.59); #Neutrophils 3.99 10x3/uL (1.40-6.50); %Basophils 0.8 % (0.0-1.0); %Eosinophils 8.9 % (0.0-10.0); %Lymphocytes 19.6 % (21.0-51.0); %Monocytes 7.8 % (0.0-10.0); %Neutrophils 62.6 % (42.0-75.0); Hematocrit 32.3 % (36.0-47.0); Hemoglobin 10.1 g/dL (12.0-16.0); Mean Corpuscular Hemoglobin 31.1 pg (27.0-31.0); Mean Corpuscular Volume 99.4 fL (78.0-98.0); Platelet Count 254 10x3/uL (130-400); Red Blood Cell (RBC) Count 3.25 mill/uL (4.20-5.40); White Blood Cell (WBC) Count 6.38 10x3/uL (4.8-10.8)
[2025-05-18 07:52] LABS: ALT (SGPT) 9 U/L (Less than 34); AST (SGOT) 19 U/L (11-34); Albumin 3.2 g/dL (3.1-4.5); Alkaline Phosphatase 103 U/L (40-110); Anion Gap 12 mmol/L (10-20); BUN (Urea Nitrogen) 35 mg/dL (9.8-20.1); Bilirubin, Total 0.5 mg/dL (0.3-1.2); Calc. Creatinine Clearance 27 mL/min (70-130); Calcium 9.0 mg/dL (7.8-10.44); Carbon Dioxide 23 mmol/L (23-31); Chloride 108 mmol/L (98-107); Globulin 2.8 g/dL (2.4-3.5); Glucose 78 mg/dL (83-110); Potassium 4.4 mmol/L (3.5-5.1); Sodium 139 mmol/L (136-145)
[2025-05-19 03:49] LABS: #Basophils 0.06 10x3/uL (0.0-0.2); #Eosinophils 0.62 10x3/uL (0.0-0.7); #Monocytes 0.58 10x3/uL (0.11-0.59); #Neutrophils 4.14 10x3/uL (1.40-6.50); %Basophils 0.9 % (0.0-1.0); %Eosinophils 9.2 % (0.0-10.0); %Lymphocytes 19.9 % (21.0-51.0); %Monocytes 8.6 % (0.0-10.0); %Neutrophils 61.1 % (42.0-75.0); Hematocrit 35.9 % (36.0-47.0); Hemoglobin 11.0 g/dL (12.0-16.0); Mean Corpuscular Hemoglobin 30.1 pg (27.0-31.0); Mean Corpuscular Volume 98.1 fL (78.0-98.0); Platelet Count 256 10x3/uL (130-400); Red Blood Cell (RBC) Count 3.66 mill/uL (4.20-5.40); White Blood Cell (WBC) Count 6.77 10x3/uL (4.8-10.8)
[2025-05-19 04:30] LABS: ALT (SGPT) 8 U/L (Less than 34); AST (SGOT) 17 U/L (11-34); Albumin 3.2 g/dL (3.1-4.5); Alkaline Phosphatase 108 U/L (40-110); Anion Gap 11 mmol/L (10-20); BUN (Urea Nitrogen) 43 mg/dL (9.8-20.1); Bilirubin, Total 0.4 mg/dL (0.3-1.2); Calc. Creatinine Clearance 25 mL/min (70-130); Calcium 8.8 mg/dL (7.8-10.44); Carbon Dioxide 22 mmol/L (23-31); Chloride 108 mmol/L (98-107); Globulin 3.0 g/dL (2.4-3.5); Glucose 120 mg/dL (83-110); Potassium 4.5 mmol/L (3.5-5.1); Sodium 136 mmol/L (136-145)
[2025-05-19 14:40] VITALS: BMI 22.5
[2025-05-19 15:32] VITALS: TEMP 97.7
[2025-05-19 15:42] VITALS: BP 132/71
[2025-05-23 16:38] LABS: Metanephrine,Plasma 25.1 pg/mL (0.0-88.0); Normetanephrine,Pl 61.3 pg/mL (0.0-297.2)
== END 2025-05-19 18:37 | disposition home health service (06) | DRG 280 ==
LOC: PCU 19:27
PROVIDERS: ADMIT Student in an Organized Health Care Education/Training Program; ATTEND Student in an Organized Health Care Education/Training Program
PROC: 30233N1 Transfusion of Nonautologous Red Blood Cells into Peripheral Vein, Percutaneous Approach (ICD-10-PCS; principal; 2025-05-07)
DX: I13.0 Hypertensive heart and chronic kidney disease with heart failure and stage 1 through stage 4 chronic kidney disease, or unspecified chronic kidney disease (principal); I50.33 Acute on chronic diastolic (congestive) heart failure; I21.A1 Myocardial infarction type 2; J96.01 Acute respiratory failure with hypoxia; E87.20 Acidosis, unspecified; N18.4 Chronic kidney disease, stage 4 (severe); E11.22 Type 2 diabetes mellitus with diabetic chronic kidney disease; N18.32 Chronic kidney disease, stage 3b; K59.00 Constipation, unspecified; D53.9 Nutritional anemia, unspecified; I42.2 Other hypertrophic cardiomyopathy; N28.89 Other specified disorders of kidney and ureter; D63.1 Anemia in chronic kidney disease; E88.09 Other disorders of plasma-protein metabolism, not elsewhere classified; Z88.8 Allergy status to other drugs, medicaments and biological substances; Z95.1 Presence of aortocoronary bypass graft; Z95.0 Presence of cardiac pacemaker; Z88.0 Allergy status to penicillin; Z98.891 History of uterine scar from previous surgery; Z87.891 Personal history of nicotine dependence; Z91.81 History of falling; Z86.73 Personal history of transient ischemic attack (TIA), and cerebral infarction without residual deficits; Z79.51 Long term (current) use of inhaled steroids; Z79.82 Long term (current) use of aspirin; Z79.899 Other long term (current) drug therapy
CPT/HCPCS: 36415; 36416; 36430; 74181; 76014; 76770; 78451; 80053; 81001; 82570; 83036; 83540; 83550; 83735; 83835; 83880; 84145; 84300; 85025; 85379; 86141; 86850; 86870; 86900; 86901; 86922; 93306; 93970; 94640; 94664; 97139; A9540; J1250; J1644; J1815; J1940; J2260; J2916; J7050; J7120; J7512; J7620; P9016; Q5105